=== PATIENT | female | born 1985 | race African-American/Black ===

== ENCOUNTER 2018-09-25 20:51 | Emergency (ER) | payer OTHER ==
[~2018-09-25] VITALS: Ht 167.6 cm; Wt 77.3 kg
[~2018-09-25 20:51] MED LIST: APAP325T4 PO; DIBU1OIN TOP; DICL10TA PO; IBUP-1022 PO; IBUP-1114 PO; IBUP80TA PO; KEFL500C17 PO; MAPA500T2 PO; PRENTAB20 PO; PRENTAB55 PO; PROM25SU PR; ROBA500T PO; TRAM50TA2 PO
[2018-09-25 20:52] VITALS: BP 177/88
[2018-09-25] MEDS ORDERED: predniSONE 20 MG TAB PO ONE (21:30)
[2018-09-25] MEDS ORDERED: PRED20TA PO (22:20)
== END 2018-09-25 22:30 | disposition home or self-care (01) ==
LOC: EDBD 20:51 → M ED 20:51
DX: L25.9 Unspecified contact dermatitis, unspecified cause (principal); L50.9 Urticaria, unspecified

== ENCOUNTER 2018-10-11 07:55 | Emergency (ER) | payer OTHER ==
[~2018-10-11] VITALS: Ht 167.6 cm; Wt 81.7 kg
[~2018-10-11 07:55] MED LIST changes: +PRED20TA PO
[2018-10-11 08:34] LABS: HEMATOCRIT 35.9 % (36.0-47.0); MEAN CORPUSCULAR HEMOGLOBIN 25.1 pg (27.0-33.0); MEAN CORPUSCULAR HGB CONC 30.6 g/dl (32.0-36.5); MEAN CORPUSCULAR VOLUME 81.8 fl (80.0-96.0); PLATELET COUNT, AUTOMATED 170 10^3/uL (150-450); RED BLOOD COUNT 4.39 10^6/uL (4.00-5.40); WHITE BLOOD COUNT 4.5 10^3/uL (4.0-10.0)
[2018-10-11 08:59] LABS: BLOOD UREA NITROGEN 9 MG/DL (7-18); CALCIUM LEVEL 8.8 MG/DL (8.5-10.1); CARBON DIOXIDE LEVEL 24 MEQ/L (21-32); CHLORIDE LEVEL 111 MEQ/L (98-107); CREATININE FOR GFR 1.11 MG/DL (0.55-1.30); GLOMERULAR FILTRATION RATE > 60.0 (>60); GLUCOSE, FASTING 97 MG/DL (70-100); POTASSIUM SERUM 3.6 MEQ/L (3.5-5.1); SODIUM LEVEL 142 MEQ/L (136-145)
--- NOTE | 2018-10-11 09:53 | REP ---
Pelvic ultrasound for heavy vaginal bleeding and pelvic cramping: The studies performed with transabdominal, endovaginal Doppler ultrasound assessment: The bladder is adequately distended. The uterus is anteverted and upper normal size measuring 9.4 x 5.1-5.6 cm. The endometrium is not thickened measuring 9.6 mm. The myometrium is mildly heterogeneous. Right ovary: The right ovary is normal size measuring 3.1 x 2.4 by 1.9 cm. There is a 1.3 cm dominant follicle. There is vascular flow with the Doppler resistive index of the parenchymal arteries measuring 0.52. Left ovary: The left ovary is normal size measuring 3.7 x 1.4 x 120 cm. There is no dominant mass or cyst. There is vascular flow with the Doppler resistive index in the parenchymal arteries measuring 0.43. The Impression: Mildly heterogeneous myometrium. Otherwise, negative pelvic ultrasound. Electronically Signed by Sean Pool MD 10/11/2018 09:45 A
[2018-10-11 10:28] VITALS: BP 129/86
--- NOTE | 2018-10-12 09:27 | ED PDOC ---
Post-Departure Follow-Up ft atul torres faxed formal report of pelvic us for fu Uriah Ching MD Oct 12, 2018 09:27
== END 2018-10-11 10:29 | disposition home or self-care (01) ==
LOC: M ED 07:55
DX: N92.0 Excessive and frequent menstruation with regular cycle (principal); N94.6 Dysmenorrhea, unspecified; N80.9 Endometriosis, unspecified; Z87.42 Personal history of other diseases of the female genital tract; F17.200 Nicotine dependence, unspecified, uncomplicated; Z79.3 Long term (current) use of hormonal contraceptives

== ENCOUNTER 2018-12-20 08:06 | Emergency (ER) | payer OTHER ==
[~2018-12-20] VITALS: Ht 167.6 cm; Wt 82.7 kg
[2018-12-20 08:06] VITALS: BP 126/70
[2018-12-20] MEDS ORDERED: IBUP80TA (08:11)
[2018-12-20] MEDS ORDERED: CYCL5TAB PO (08:25)
[2018-12-20] MEDS ORDERED: LIDO5DIS41 TD (08:25)
[2018-12-20] MEDS ORDERED: LIDOCAINE 5% (LIDODERM) PATCH TD ONE (08:30)
[2018-12-20] MEDS ORDERED: KETOROLAC 30 MG/ML VIAL (J1885) IM ONE (08:30)
[2018-12-20] MEDS ORDERED: **NOTE PATIENT COMMENT** MISC XX SCH (21:00)
== END 2018-12-20 09:15 | disposition home or self-care (01) ==
LOC: M ED 08:06
DX: M54.5 Low back pain (principal); F17.218 Nicotine dependence, cigarettes, with other nicotine-induced disorders
CPT/HCPCS: 96372; 99283; J1885

== ENCOUNTER 2019-04-18 08:51 | Day surgery (SDC) | payer OTHER ==
[~2019-04-18] VITALS: Ht 167.6 cm; Wt 85.7 kg
[~2019-04-18 08:51] MED LIST changes: +ACETAMINOPHEN 650 MG SUPP PR ONE; +CYCL5TAB PO; +IRON325T9 PO; +LIDO5DIS41 TD; +LIDOCAINE 1% MDV 20ML VIAL SQ PRN; +LR 1,000 ML IV ONE; +SODIUM CHLORIDE 0.9% 1000ML IV ONE; +VITA500T21 PO
[2019-04-18] MEDS ORDERED: QC A650T3 PO (09:27)
[2019-04-18 09:31] LABS: HEMATOCRIT 34.7 % (36.0-47.0); HEMOGLOBIN 10.7 g/dl (12.0-15.5); MEAN CORPUSCULAR HGB CONC 30.8 g/dl (32.0-36.5); MEAN CORPUSCULAR VOLUME 77.8 fl (80.0-96.0); PLATELET COUNT, AUTOMATED 186 10^3/uL (150-450); RED BLOOD COUNT 4.46 10^6/uL (4.00-5.40); WHITE BLOOD COUNT 5.7 10^3/uL (4.0-10.0)
[2019-04-18] MEDS ORDERED: LIDOCAINE 2% INJ 100 MG/5 ML SDV (FOR ANES.) As Ordered ONE (09:47)
[2019-04-18] MEDS ORDERED: dexameTHASONE 4 MG/ML 1ML VIAL (J1100) As Ordered ONE (09:47)
[2019-04-18] MEDS ORDERED: MIDAZOLAM INJ 2 MG/2 ML VIAL (J2250) As Ordered ONE (09:47)
[2019-04-18] MEDS ORDERED: propofoL 200 MG/20 ML VIAL As Ordered ONE (09:47)
[2019-04-18] MEDS ORDERED: ONDANSETRON 4MG/2ML VIAL (J2405) As Ordered ONE (09:47)
[2019-04-18] MEDS ORDERED: fentaNYL 100 MCG/2 ML INJECTION (J3010) As Ordered ONE (09:47)
[2019-04-18 10:00] LABS: BLOOD UREA NITROGEN 13 MG/DL (7-18); CALCIUM LEVEL 8.8 MG/DL (8.5-10.1); CARBON DIOXIDE LEVEL 26 MEQ/L (21-32); CHLORIDE LEVEL 110 MEQ/L (98-107); CREATININE FOR GFR 0.76 MG/DL (0.55-1.30); GLOMERULAR FILTRATION RATE > 60.0 (>60); GLUCOSE, FASTING 80 MG/DL (70-100); HCG, SERUM QUANTITATIVE < 1.0 MIU/ML; SODIUM LEVEL 140 MEQ/L (136-145)
[2019-04-18] MEDS ORDERED: ACETAMINOPHEN 650 MG SUPP As Ordered ONE (10:23)
[2019-04-18] MEDS ORDERED: KETOROLAC 60 MG/2 ML VIAL (J1885) As Ordered ONE (10:51)
[2019-04-18] MEDS ORDERED: ePHEDrine SULFATE 25 MG/5 ML(5MG/ML) SYRINGE As Ordered ONE (11:05)
[2019-04-18] MEDS ORDERED: fentaNYL 100 MCG/2 ML INJECTION (J3010) IV PRN (11:45)
[2019-04-18] MEDS ORDERED: ONDANSETRON 4MG/2ML VIAL (J2405) IV PRN (11:45)
[2019-04-18] MEDS ORDERED: LR 1,000 ML IV SCH (11:45)
[2019-04-18] MEDS ORDERED: oxyCODONE 5MG TAB PO PRN (11:45)
[2019-04-18] MEDS ORDERED: METOCLOPRAMIDE INJ 10MG/2ML VIAL (J2765) IV PRN (11:45)
[2019-04-18] MEDS ORDERED: KETOROLAC 30 MG/ML VIAL (J1885) IV PRN (11:45)
[2019-04-18 12:55] VITALS: BP 112/62
--- NOTE | 2019-04-18 15:14 | ECGEPIP ---
[place] Test Date: 2019-04-18 Pat Name: LORRAINE BLANCO Department: Room: - Gender: Female Manager Research: GISELLE : 1985 Requested By: José Luis Chavez Order Number: [id number] Reading MD: Luis Tse Measurements Intervals [place] Rate: 76 P: 29 [place]: 165 QRS: 45 QRSD: 93 T: 5 QT: 379 QTc: 428 Interpretive Statements SINUS RHYTHM NONSPECIFIC T-WAVE ABNORMALITY Comparison tracing not on file Electronically Signed on 04-18-2019 15:14:02 EST by Luis Tse
== END 2019-04-18 13:18 | disposition home or self-care (01) ==
LOC: M SDC 08:51
PROVIDERS: ATTEND Obstetrics & Gynecology
DX: N93.9 Abnormal uterine and vaginal bleeding, unspecified (principal); G47.30 Sleep apnea, unspecified; D64.9 Anemia, unspecified; Z79.899 Other long term (current) drug therapy; F17.290 Nicotine dependence, other tobacco product, uncomplicated
CPT/HCPCS: 36415; 58563; 80048; 84702; 85027; 88305; 93005; J1100; J1885; J2250; J2405; J3010

== ENCOUNTER → 2019-05-05 | Outpatient (CLI) | payer OTHER ==
[~2019-05-05] MED LIST changes: -ACETAMINOPHEN 650 MG SUPP PR ONE; -LIDOCAINE 1% MDV 20ML VIAL SQ PRN; -LR 1,000 ML IV ONE; +QC A650T3 PO; -SODIUM CHLORIDE 0.9% 1000ML IV ONE
[2019-05-05 19:50] LABS: HEMATOCRIT 32.9 % (36.0-47.0); MEAN CORPUSCULAR HEMOGLOBIN 24.2 pg (27.0-33.0); MEAN CORPUSCULAR HGB CONC 30.4 g/dl (32.0-36.5); MEAN CORPUSCULAR VOLUME 79.5 fl (80.0-96.0); PLATELET COUNT, AUTOMATED 221 10^3/uL (150-450); RED BLOOD COUNT 4.14 10^6/uL (4.00-5.40); WHITE BLOOD COUNT 14.1 10^3/uL (4.0-10.0)
[2019-05-05 19:55] LABS: BLOOD UREA NITROGEN 10 MG/DL (7-18); CALCIUM LEVEL 8.8 MG/DL (8.5-10.1); CARBON DIOXIDE LEVEL 28 MEQ/L (21-32); CHLORIDE LEVEL 108 MEQ/L (98-107); CREATININE FOR GFR 0.82 MG/DL (0.55-1.30); GLOMERULAR FILTRATION RATE > 60.0 (>60); GLUCOSE, FASTING 97 MG/DL (70-100); POTASSIUM SERUM 3.7 MEQ/L (3.5-5.1); SODIUM LEVEL 139 MEQ/L (136-145)
== END ==
LOC: M LRY 17:37
PROVIDERS: ATTEND Plastic Surgery Surgery of the Hand
DX: M62.08 Separation of muscle (nontraumatic), other site (principal); M54.07 Panniculitis affecting regions of neck and back, lumbosacral region; K43.9 Ventral hernia without obstruction or gangrene

== ENCOUNTER 2019-11-03 10:49 | Emergency (ER) | payer OTHER ==
[~2019-11-03] VITALS: Ht 167.6 cm; Wt 85.3 kg
[2019-11-03] MEDS ORDERED: ONDA4TAB6 PO (11:07)
[2019-11-03] MEDS ORDERED: DIPH25CA32 PO (11:07)
[2019-11-03] MEDS ORDERED: CYCL5TAB PO (11:07)
[2019-11-03] MEDS ORDERED: diphenhydrAMINE 50MG/ML VIAL (J1200) IV STA (11:49)
[2019-11-03] MEDS ORDERED: METOCLOPRAMIDE INJ 10MG/2ML VIAL (J2765 PER 1) IV ONE (12:00)
[2019-11-03] MEDS ORDERED: NS 1,000 ML IV ONE (12:00)
[2019-11-03 12:13] LABS: BASO % 0.4 % (0.0-1.0); EOS % 0.8 % (0.0-3.0); HEMATOCRIT 43.7 % (36.0-47.0); HEMOGLOBIN 13.7 g/dl (12.0-15.5); LYMPH # 1.2 10^3/uL (1.5-5.0); LYMPH % 47.6 % (24.0-44.0); MEAN CORPUSCULAR HEMOGLOBIN 26.3 pg (27.0-33.0); MEAN CORPUSCULAR HGB CONC 31.4 g/dl (32.0-36.5); MONO # 0.4 10^3/uL (0.0-0.8); MONO % 16.9 % (0.0-5.0); NEUTROPHILS % 33.9 % (36.0-66.0); PLATELET COUNT, AUTOMATED 159 10^3/uL (150-450); WHITE BLOOD COUNT 2.5 10^3/uL (4.0-10.0)
[2019-11-03 12:17] LABS: NEUTROPHILS # 0.8 10^3/uL (1.5-8.5)
[2019-11-03 12:42] LABS: HCG, SERUM QUALITATIVE NEGATIVE (NEGATIVE)
[2019-11-03 12:53] LABS: ACETAMINOPHEN LEVEL < 2.0 UG/ML (10.0-30.0); ALBUMIN 3.8 GM/DL (3.2-5.2); ALT/SGPT 21 U/L (12-78); BILIRUBIN,DIRECT < 0.1 MG/DL (0.0-0.2); BILIRUBIN,TOTAL 0.4 MG/DL (0.2-1.0); BLOOD UREA NITROGEN 10 MG/DL (7-18); CALCIUM LEVEL 9.2 MG/DL (8.5-10.1); CARBON DIOXIDE LEVEL 26 MEQ/L (21-32); CHLORIDE LEVEL 108 MEQ/L (98-107); CREATININE FOR GFR 0.82 MG/DL (0.55-1.30); ETHYL ALCOHOL (ETHANOL) < 0.003 % (0.000-0.010); GLOMERULAR FILTRATION RATE > 60.0 (>60); GLUCOSE, FASTING 77 MG/DL (70-100); SALICYLATE LEVEL 3.4 MG/DL (5.0-30.0); SODIUM LEVEL 139 MEQ/L (136-145); THYROID STIMULATING HORMONE 0.643 uIU/ML (0.358-3.740); TOTAL PROTEIN 7.9 GM/DL (6.4-8.2)
--- NOTE | 2019-11-03 13:05 | REPVR ---
PROCEDURE INFORMATION: Exam: CT Head Without Contrast Exam date and time: 11/03/2019 12:49 PM Age: 33 years old Clinical indication: Altered mental status/memory loss; Confusion or disorientation TECHNIQUE: Imaging protocol: Computed tomography of the head without contrast. Radiation optimization: All CT scans at this facility use at least one of these dose optimization techniques: automated exposure control; mA and/or kV adjustment per patient size (includes targeted exams where dose is matched to clinical indication); or iterative reconstruction. COMPARISON: No relevant prior studies available. FINDINGS: Brain: Examination of the brain demonstrates normal structure and attenuation.The cortical henry / white matter interfaces are preserved throughout the brain.No acute infarction, masses or hemorrhage is seen. Ventricles: The ventricular system is not dilated and is appropriate for the patient's age. Bones/joints: Unremarkable. No acute fracture. Paranasal sinuses: Visualized sinuses are unremarkable. No fluid levels. Mastoid air cells: Visualized mastoid air cells are well aerated. Soft tissues: Unremarkable. IMPRESSION: No acute infarction, masses or hemorrhage is seen. No acute intracranial abnormality is identified. Electronically signed by: Kenrick Guerra On 11/03/2019 13:05:47 PM
[2019-11-03] MEDS ORDERED: REGL10TA6 PO (13:54)
[2019-11-03 14:06] VITALS: BP 113/77
[2019-11-03 14:22] LABS: AMPHETAMINES LEVEL URINE NEGATIVE (NEGATIVE); BARBITURATES URINE NEGATIVE (NEGATIVE); BENZODIAZEPINES URINE NEGATIVE (NEGATIVE); CANNABINOIDS URINE NEGATIVE (NEGATIVE); COCAINE METABOLITE URINE NEGATIVE (NEGATIVE); METHADONE URINE NEGATIVE (NEGATIVE); OPIATES URINE NEGATIVE (NEGATIVE); PHENCYCLIDINE URINE NEGATIVE (NEGATIVE)
--- NOTE | 2019-11-04 11:59 | ECGEPIP ---
[facility] - ED Test Date: 2019-11-03 Pat Name: LORRAINE BLANCO Department: Room: - Gender: Female External Auditor: HOWIE : 1985 Requested By: JUANY TRISTAN Order Number: [id number] Reading MD: Mateo Akers Measurements Intervals [place] Rate: 66 P: 23 [place]: 164 QRS: 58 QRSD: 93 T: 4 QT: 388 QTc: 408 Interpretive Statements SINUS RHYTHM NONSPECIFIC T-WAVE ABNORMALITY SIMILAR TO 04/18/19 Electronically Signed on 11-04-2019 11:58:44 EDT by Mateo Akers
== END 2019-11-03 14:13 | disposition home or self-care (01) ==
LOC: M ED 10:49
DX: R51 Headache (principal); I51.9 Heart disease, unspecified; Z79.899 Other long term (current) drug therapy
CPT/HCPCS: 36415; 70450; 80048; 80076; 80307; 84443; 84703; 85025; 93005; 96361; 96374; 96375; 99284; G0480; J1200; J2765

== ENCOUNTER 2019-12-06 22:43 | Emergency (ER) | payer OTHER ==
[~2019-12-06] VITALS: Ht 167.6 cm; Wt 87.4 kg
[~2019-12-06 22:43] MED LIST changes: +DIPH25CA32 PO; +ONDA4TAB6 PO; +REGL10TA6 PO
[2019-12-07 00:55] LABS: MEAN CORPUSCULAR HEMOGLOBIN 26.4 pg (27.0-33.0); MEAN CORPUSCULAR HGB CONC 31.7 g/dl (32.0-36.5); MEAN CORPUSCULAR VOLUME 83.2 fl (80.0-96.0); PLATELET COUNT, AUTOMATED 185 10^3/uL (150-450); RED BLOOD COUNT 4.93 10^6/uL (4.00-5.40); WHITE BLOOD COUNT 6.4 10^3/uL (4.0-10.0)
[2019-12-07] MEDS ORDERED: IBUPROFEN 600MG TAB PO ONE (01:00)
[2019-12-07] MEDS ORDERED: MORPHINE 4 MG/ML 1ML VIAL/SYRINGE (J2270) IV ONE (01:00)
[2019-12-07] MEDS ORDERED: ACETAMINOPHEN 325 MG TAB PO ONE (01:00)
[2019-12-07 01:02] LABS: APPEARANCE, URINE CLEAR (CLEAR); BACTERIA, URINE AUTO NEGATIVE (NEGATIVE); BILIRUBIN, URINE AUTO NEGATIVE (NEGATIVE); BLOOD, URINE BLOOD NEGATIVE (NEGATIVE); COLOR, URINE YELLOW (YELLOW); GLUCOSE, URINE (UA) AUTO NEGATIVE (NEGATIVE); KETONE, URINE AUTO NEGATIVE (NEGATIVE); LEUKOCYTE ESTERASE, URINE AUTO NEGATIVE (NEGATIVE); MUCUS, URINE SMALL (NEGATIVE); NITRITE, URINE AUTO NEGATIVE (NEGATIVE); PROTEIN, URINE AUTO NEGATIVE (NEGATIVE); RBC, URINE AUTO 2 /HPF (0-3); SPECIFIC GRAVITY URINE AUTO 1.024 (1.002-1.035); SQUAMOUS EPITHELIAL CELL UR AU 1 /HPF (0-6); WBC, URINE AUTO 1 /HPF (0-3)
[2019-12-07 01:24] LABS: BLOOD UREA NITROGEN 13 MG/DL (7-18); CALCIUM LEVEL 9.8 MG/DL (8.5-10.1); CARBON DIOXIDE LEVEL 27 MEQ/L (21-32); CHLORIDE LEVEL 108 MEQ/L (98-107); CREATININE FOR GFR 0.95 MG/DL (0.55-1.30); GLOMERULAR FILTRATION RATE > 60.0 (>60); GLUCOSE, FASTING 95 MG/DL (70-100); POTASSIUM SERUM 3.9 MEQ/L (3.5-5.1); SODIUM LEVEL 137 MEQ/L (136-145)
[2019-12-07 01:39] LABS: HCG, SERUM QUALITATIVE NEGATIVE (NEGATIVE)
[2019-12-07] MEDS ORDERED: ISOVUE-370 76% 100ML VIAL As Ordered ONE (01:51)
--- NOTE | 2019-12-07 02:21 | REPVR ---
PROCEDURE INFORMATION: Exam: US Nonobstetric Pelvis; Complete Exam date and time: 12/07/2019 1:41 AM Age: 34 years old Clinical indication: Pelvic pain; Prior surgery; Surgery date: 6+ months; Surgery type: Uterine ablation; Additional info: Rule out ovarian torsion TECHNIQUE: Imaging protocol: Transabdominal pelvic nonobstetric ultrasound. Complete exam. Real time ultrasound with image documentation. COMPARISON: US PELVIC NON-OB COMPLETE 10/11/2018 9:18 AM FINDINGS: GESTATION: Gestation: No parts are seen in either collection. Uterus/cervix: Uterus measures 9.6 x 4.2 x 6.5 cm. Endometrium measures 9 mm. A 2.5 cm oval cystic area is noted in the lower endometrium. No other endometrial mass is seen. Additional small irregular area of fluid is noted in the fundal endometrium measuring 1.5 cm. No solid uterine or endometrial masses. Right adnexa: Ovary is normal. No mass. Normal blood flow. Left adnexa: 2.0 cm simple cyst in the left ovary. Normal blood flow. Intraperitoneal space: No intraperitoneal free fluid. Bladder: Normal. IMPRESSION: 1. Two cystic areas in the endometrium. Findings may be related to previous endometrial ablation. No parts or solid mass is seen. 2. Simple cyst in the left ovary. Electronically signed by: Gustavo Brian On 12/07/2019 02:21:24 AM
--- NOTE | 2019-12-07 02:26 | REPVR ---
PROCEDURE INFORMATION: Exam: CT Abdomen And Pelvis With Contrast Exam date and time: 12/07/2019 12:53 AM Age: 34 years old Clinical indication: Abdominal pain; Localized; Lower; Additional info: Periumbilical and pelvic pain. HX of multiple abd surgeries TECHNIQUE: Imaging protocol: Computed tomography of the abdomen and pelvis with intravenous contrast. Radiation optimization: All CT scans at this facility use at least one of these dose optimization techniques: automated exposure control; mA and/or kV adjustment per patient size (includes targeted exams where dose is matched to clinical indication); or iterative reconstruction. Contrast material: ISO; Contrast volume: 100 ml; Contrast route: INTRAVENOUS (IV); COMPARISON: CT ABD PELVIS WITH CONTRAST 08/17/2018 6:03 PM FINDINGS: Liver: Normal. No mass. Gallbladder and bile ducts: Normal. No calcified stones. No ductal dilation. Pancreas: Normal. No ductal dilation. Spleen: Normal. No splenomegaly. Adrenals: Normal. No mass. Kidneys and ureters: Normal. No hydronephrosis. Stomach and bowel: Mild intraluminal fluid and mucosal enhancement are noted in the small bowel. No wall thickening or other inflammatory changes. No bowel obstruction. The stomach and colon are unremarkable. Appendix: No evidence of appendicitis. Intraperitoneal space: Unremarkable. No free air. No significant fluid collection. Vasculature: Unremarkable. No abdominal aortic aneurysm. Lymph nodes: Unremarkable. No enlarged lymph nodes. Urinary bladder: Unremarkable as visualized. Reproductive: 2 cystic enhancing areas are noted in the endometrium of the uterus measuring 1.7 x 3.1 cm and 2.5 x 1.6 cm. Uterus does not appear enlarged. No solid uterine mass is seen. Probable small cyst measuring approximately 2.0 cm in the left ovary. Right ovary is not well visualized. No hydrosalpinx. Bones/joints: There are degenerative changes in the spine and pelvis. Soft tissues: There is diastasis of the rectus abdominus musculature, unchanged from the prior exam. No other abdominal wall hernias are seen. IMPRESSION: 1. Two peripherally enhancing cystic areas in the uterine endometrium. Differential diagnostic considerations include endometrial cysts, endometritis, or sequela previous surgery or endometrial ablation. 2. Probable small cysts in the left ovary. 3. Mild mucosal enhancement and intraluminal fluid in the small bowel is nonspecific but may indicate a viral enteritis. No obstruction. 4. Stable diastasis of the rectus abdominus musculature with nonobstructed bowel and peritoneal fat extending into the defect. Electronically signed by: Gustavo Brian On 12/07/2019 02:26:25 AM
[2019-12-07] MEDS ORDERED: ONDANSETRON 4MG/2ML VIAL IV ONE (03:45)
[2019-12-07] MEDS ORDERED: ZOFR4TAB16 PO (03:48)
[2019-12-07 04:15] VITALS: BP 105/72
== END 2019-12-07 04:31 | disposition home or self-care (01) ==
LOC: M ED 22:43
DX: N80.9 Endometriosis, unspecified (principal); N83.202 Unspecified ovarian cyst, left side; M62.08 Separation of muscle (nontraumatic), other site; F17.200 Nicotine dependence, unspecified, uncomplicated; Z79.899 Other long term (current) drug therapy
CPT/HCPCS: 74177; 76856; 80048; 81001; 84703; 85027; 93976; 96374; 96375; 99284; J2270; J2405; Q9967

== ENCOUNTER 2019-12-21 16:39 | Emergency (ER) | payer OTHER ==
[~2019-12-21] VITALS: Ht 167.6 cm; Wt 86.6 kg
[~2019-12-21 16:39] MED LIST changes: +ZOFR4TAB16 PO
[2019-12-21] MEDS ORDERED: ZONI25CA13 (16:50)
[2019-12-21 18:43] LABS: BASO % 0.1 % (0.0-1.0); EOS # 0.1 10^3/uL (0.0-0.5); EOS % 0.9 % (0.0-3.0); HEMATOCRIT 41.6 % (36.0-47.0); LYMPH # 2.6 10^3/uL (1.5-5.0); LYMPH % 33.7 % (24.0-44.0); MEAN CORPUSCULAR HEMOGLOBIN 26.3 pg (27.0-33.0); MEAN CORPUSCULAR HGB CONC 31.3 g/dl (32.0-36.5); MONO # 0.3 10^3/uL (0.0-0.8); MONO % 4.2 % (0.0-5.0); NEUTROPHILS # 4.6 10^3/uL (1.5-8.5); NEUTROPHILS % 60.7 % (36.0-66.0); PLATELET COUNT, AUTOMATED 186 10^3/uL (150-450); RED BLOOD COUNT 4.95 10^6/uL (4.00-5.40); WHITE BLOOD COUNT 7.6 10^3/uL (4.0-10.0)
--- NOTE | 2019-12-21 18:44 | REP ---
INDICATION: abd pain, constipation. COMPARISON: Comparison CT study December 07, 2019.. TECHNIQUE: Two supine views presented. FINDINGS: Supine views the abdomen demonstrate air and stool in a nondistended proximal and distal colon. No large or small bowel dilation is seen. Flank stripes are intact. Psoas margins are partially obscured by bowel gas. No mass or organomegaly is seen. No pathologic calcification noted. There is moderate stool in the cecum and ascending colon. Only minimal stool is visible in the rectum. No evidence of constipation. IMPRESSION: Normal bowel gas pattern. Minimal stool in rectum. <Electronically signed by Manuel Sweeney > 12/21/19 [id number]
[2019-12-21 19:11] LABS: BLOOD UREA NITROGEN 12 MG/DL (7-18); CALCIUM LEVEL 9.2 MG/DL (8.5-10.1); CARBON DIOXIDE LEVEL 27 MEQ/L (21-32); CHLORIDE LEVEL 109 MEQ/L (98-107); CREATININE FOR GFR 0.79 MG/DL (0.55-1.30); GLOMERULAR FILTRATION RATE > 60.0 (>60); GLUCOSE, FASTING 108 MG/DL (70-100); POTASSIUM SERUM 4.2 MEQ/L (3.5-5.1); SODIUM LEVEL 138 MEQ/L (136-145)
--- NOTE | 2019-12-21 19:24 | REPVR ---
PROCEDURE INFORMATION: Exam: US Abdomen; Limited Exam date and time: 12/21/2019 7:14 PM Age: 34 years old Clinical indication: Abdominal pain; Other: Midline tenderness; Additional info: Diastasis rectus with herniation, R/O bowel strangulation TECHNIQUE: Imaging protocol: US abdomen. Real time ultrasound with image documentation. Limited exam focused on the region of clinical interest. COMPARISON: CT ABD PELVIS WITH CONTRAST 12/07/2019 1:53 AM FINDINGS: Bowel: Peristalsing bowel was visualized along the anterior midline abdomen, corresponding to extension of bowel through the diastatic musculature seen on the CT. IMPRESSION: Peristalsing bowel visualized along the anterior midline abdomen, corresponding to extension of bowel through the diastatic musculature seen on CT of 12/07/19. If there is any clinical concern for bowel obstruction, suggest repeat CT. Electronically signed by: Sami Bob On 12/21/2019 19:23:43 PM
[2019-12-21] MEDS ORDERED: ULTR50TA8 PO (20:19)
[2019-12-21] MEDS ORDERED: MIRA3350 PO (20:19)
[2019-12-21] MEDS ORDERED: NAPR-837 PO (20:19)
[2019-12-21 20:24] VITALS: BP 118/82
[2019-12-21] MEDS ORDERED: traMADol 50 MG TAB PO ONE (20:30)
== END 2019-12-21 20:28 | disposition home or self-care (01) ==
LOC: M ED 16:39
DX: M62.08 Separation of muscle (nontraumatic), other site (principal); S39.012A Strain of muscle, fascia and tendon of lower back, initial encounter; X58.XXXA Exposure to other specified factors, initial encounter; Y92.9 Unspecified place or not applicable; Y93.9 Activity, unspecified; Y99.9 Unspecified external cause status; Z79.899 Other long term (current) drug therapy

== ENCOUNTER 2020-01-19 11:03 | Emergency (ER) | payer OTHER ==
[~2020-01-19] VITALS: Ht 167.6 cm; Wt 86.2 kg
[~2020-01-19 11:03] MED LIST changes: +MIRA3350 PO; +NAPR-837 PO; +ULTR50TA8 PO; +ZONI25CA13
[2020-01-19] MEDS ORDERED: NS 1,000 ML IV ONE (12:15)
[2020-01-19] MEDS ORDERED: ONDANSETRON 4MG/2ML VIAL IV ONE (12:15)
[2020-01-19] MEDS ORDERED: MORPHINE 4 MG/ML 1ML VIAL/SYRINGE (J2270) IV ONE (12:15)
[2020-01-19 12:37] LABS: BASO % 0.2 % (0.0-1.0); EOS # 0.1 10^3/uL (0.0-0.5); EOS % 0.9 % (0.0-3.0); HEMATOCRIT 38.5 % (36.0-47.0); LYMPH # 1.8 10^3/uL (1.5-5.0); LYMPH % 29.9 % (24.0-44.0); MEAN CORPUSCULAR HEMOGLOBIN 26.4 pg (27.0-33.0); MEAN CORPUSCULAR HGB CONC 31.2 g/dl (32.0-36.5); MEAN CORPUSCULAR VOLUME 84.6 fl (80.0-96.0); MONO # 0.3 10^3/uL (0.0-0.8); MONO % 5.4 % (0.0-5.0); NEUTROPHILS # 3.7 10^3/uL (1.5-8.5); NEUTROPHILS % 63.4 % (36.0-66.0); PLATELET COUNT, AUTOMATED 154 10^3/uL (150-450); RED BLOOD COUNT 4.55 10^6/uL (4.00-5.40); WHITE BLOOD COUNT 5.9 10^3/uL (4.0-10.0)
[2020-01-19 12:57] LABS: HCG, SERUM QUALITATIVE NEGATIVE (NEGATIVE)
[2020-01-19 12:58] LABS: BLOOD UREA NITROGEN 11 MG/DL (7-18); CALCIUM LEVEL 8.7 MG/DL (8.5-10.1); CARBON DIOXIDE LEVEL 25 MEQ/L (21-32); CHLORIDE LEVEL 110 MEQ/L (98-107); CREATININE FOR GFR 0.82 MG/DL (0.55-1.30); GLOMERULAR FILTRATION RATE > 60.0 (>60); GLUCOSE, FASTING 87 MG/DL (70-100); SODIUM LEVEL 140 MEQ/L (136-145)
[2020-01-19 12:59] LABS: ALBUMIN 3.5 GM/DL (3.2-5.2); ALT/SGPT 19 U/L (12-78); BILIRUBIN,DIRECT 0.2 MG/DL (0.0-0.2); BILIRUBIN,TOTAL 0.5 MG/DL (0.2-1.0); LIPASE 73 U/L (73-393); TOTAL PROTEIN 7.1 GM/DL (6.4-8.2)
--- NOTE | 2020-01-19 13:46 | REP ---
INDICATION: pelvic pain, h/o endometriosis and ovarian cysts. COMPARISON: Comparison pelvic sonography December 07, 2019.. TECHNIQUE: Transabdominal and transvaginal scanning were performed. FINDINGS: Uterine dimensions are normal at 9.5 x 5.0 x 5.5 cm. Endometrial echo is 0.4 cm. A hypoechoic fluid collection is seen in the lower uterine segment centrally consistent with a loculated endometrial fluid collection, localized hydrometra . This measures 3.0 x 1.6 cm. At real-time exam, this is observed to move within the endometrium. A cystic polypoid lesion could have this appearance as well. No myometrial mass lesion is observed. The right ovary has dimensions of 3.5 x 1.9 x 3.6 cm. It's Doppler flow is normal with a resistive index of 0.4. There is a 1.9 x 1.1 x 2.3 cm cyst in the right ovary. The left ovary dimensions are normal as well at 3.2 x 1.0 x 2.8 cm. It's Doppler flow was normal with resistive index of 0.28. There is a 7 mm follicle cyst in the left ovary. IMPRESSION: Oval-shaped complex 3 cm fluid collection in the endometrium of the uterus appears to be somewhat mobile at real-time exam. Cystic polypoid lesion versus loculated endometrial fluid collection, localized hydrometra.. Small cyst right ovary. Otherwise negative. <Electronically signed by Manuel Sweeney > 01/19/20 [id number]
[2020-01-19] MEDS ORDERED: FLUCONAZOLE 50MG TABLET PO ONE (14:00)
[2020-01-19] MEDS ORDERED: KETOROLAC 30 MG/ML 1ML VIAL IV ONE (14:00)
[2020-01-19] MEDS ORDERED: KETO10TAB PO (15:25)
[2020-01-19 16:00] VITALS: BP 106/67
[2020-01-19 16:03] LABS: CHLAMYDIA DNA AMPLIFICATION NEGATIVE (NEGATIVE); GC DNA AMPLIFICATION NEGATIVE (NEGATIVE)
--- NOTE | 2020-01-20 07:58 | ED PDOC ---
Post-Departure Follow-Up ft atul fp faxed formal report of pelvic us for fu Uriah Ching MD Jan 20, 2020 07:58
== END 2020-01-19 16:27 | disposition home or self-care (01) ==
LOC: M ED 11:03
DX: R10.2 Pelvic and perineal pain (principal); N85.8 Other specified noninflammatory disorders of uterus; N83.01 Follicular cyst of right ovary; B37.3 Candidiasis of vulva and vagina; R51.9 Headache, unspecified; F17.200 Nicotine dependence, unspecified, uncomplicated; Z79.899 Other long term (current) drug therapy
CPT/HCPCS: 36415; 76830; 76856; 80048; 80076; 81001; 83690; 84703; 85025; 87210; 87661; 93976; 96361; 96374; 96375; 99284; J1885; J2270; J2405

== ENCOUNTER 2020-02-15 17:20 | Emergency (ER) | payer OTHER ==
[~2020-02-15] VITALS: Ht 167.6 cm; Wt 85.9 kg
[~2020-02-15 17:20] MED LIST changes: +KETO10TAB PO
[2020-02-15] MEDS ORDERED: JOLETAB (17:32)
[2020-02-15] MEDS ORDERED: NORCO, ANEXSIA 5/325MG TABLET (HYDROcodone/ACETAMINOPHEN) PO ONE (18:30)
[2020-02-15 18:49] LABS: BASO % 0.3 % (0.0-1.0); EOS # 0.1 10^3/uL (0.0-0.5); EOS % 2.1 % (0.0-3.0); HEMATOCRIT 44.6 % (36.0-47.0); HEMOGLOBIN 13.4 g/dl (12.0-15.5); LYMPH # 2.4 10^3/uL (1.5-5.0); MEAN CORPUSCULAR HEMOGLOBIN 26.3 pg (27.0-33.0); MEAN CORPUSCULAR VOLUME 87.5 fl (80.0-96.0); MONO # 0.3 10^3/uL (0.0-0.8); MONO % 5.3 % (0.0-5.0); NEUTROPHILS # 3.4 10^3/uL (1.5-8.5); NEUTROPHILS % 54.1 % (36.0-66.0); PLATELET COUNT, AUTOMATED 153 10^3/uL (150-450); WHITE BLOOD COUNT 6.2 10^3/uL (4.0-10.0)
[2020-02-15 20:15] LABS: ALBUMIN 3.9 GM/DL (3.2-5.2); ALT/SGPT 23 U/L (12-78); BILIRUBIN,TOTAL 0.3 MG/DL (0.2-1.0); BLOOD UREA NITROGEN 14 MG/DL (7-18); CALCIUM LEVEL 9.1 MG/DL (8.5-10.1); CARBON DIOXIDE LEVEL 29 MEQ/L (21-32); CHLORIDE LEVEL 108 MEQ/L (98-107); CREATININE FOR GFR 0.88 MG/DL (0.55-1.30); GLOMERULAR FILTRATION RATE > 60.0 (>60); GLUCOSE, FASTING 90 MG/DL (70-100); POTASSIUM SERUM 4.6 MEQ/L (3.5-5.1); SODIUM LEVEL 139 MEQ/L (136-145); TOTAL PROTEIN 7.8 GM/DL (6.4-8.2)
[2020-02-15] MEDS ORDERED: MORPHINE 4 MG/ML 1ML VIAL/SYRINGE (J2270) IV ONE (20:30)
--- NOTE | 2020-02-15 21:03 | REPVR ---
PROCEDURE INFORMATION: Exam: US Nonobstetric Pelvis; Complete Exam date and time: 02/15/2020 7:36 PM Age: 34 years old Clinical indication: Pelvic pain; Prior surgery; Surgery date: 6+ months; Surgery type: Endometrial ablation in April 2019, no cycle and pain since; Patient HX: HX of heavy periods and endometriosis, states no cycles since procedure, last was in March 2019; Additional info: Increased left pelvic pain TECHNIQUE: Imaging protocol: Transabdominal pelvic nonobstetric ultrasound. Complete exam. Real time ultrasound with image documentation. COMPARISON: US PELVIC NON-OB COMPLETE 01/19/2020 12:55 PM FINDINGS: Uterus/cervix: The uterus measures 9.9 x 4.6 x 5.8 cm. Endometrium measures 4 mm thick. Small amount of endometrial fluid is present. There is a complex heterogeneous fluid collection in the lower uterine segment measuring 4.1 x 2.8 x 3.4 cm, increased in size since the previous exam. The collection is now increasingly heterogeneously echogenic, possibly indicating internal hemorrhage. No internal Doppler blood flow is seen. Right adnexa: There is a complex septated cyst in the right ovary measuring 4.8 x 3.2 x 3.1 cm. Some low level blood flow is present in the periphery of the cyst. Normal blood flow in the right ovary. Left adnexa: Left ovary is not visualized. Intraperitoneal space: Trace pelvic free fluid. Urinary bladder: Unremarkable. IMPRESSION: 1. Interval increase in size of heterogeneous, possibly hemorrhagic cystic mass in the lower uterine segment. 2. New complex septated cyst in the right ovary. Electronically signed by: Gustavo Brian On 02/15/2020 21:03:41 PM
[2020-02-15] MEDS ORDERED: PERC5TAB12 PO (21:36)
[2020-02-15] MEDS ORDERED: OXYCODONE/APAP 5MG/325MG(BULK FOR ED) 1 TABLET PO ONE (21:45)
[2020-02-15 22:02] VITALS: BP 113/64
== END 2020-02-15 22:04 | disposition home or self-care (01) ==
LOC: M ED 17:20
DX: N83.201 Unspecified ovarian cyst, right side (principal); N93.9 Abnormal uterine and vaginal bleeding, unspecified; Z79.1 Long term (current) use of non-steroidal anti-inflammatories (NSAID); Z79.899 Other long term (current) drug therapy
CPT/HCPCS: 76830; 76856; 80053; 81001; 84702; 85025; 93976; 96374; 99284; J2270

== ENCOUNTER 2020-03-06 20:26 | Emergency (ER) | payer OTHER ==
[~2020-03-06] VITALS: Ht 167.6 cm; Wt 88.6 kg
[~2020-03-06 20:26] MED LIST changes: +JOLETAB; +PERC5TAB12 PO
--- OUTSIDE RECORDS SUMMARY | 2020-03-06 20:33 | CCD ---
Author Author [facility] Organization [facility] Address Unknown Phone Unavailable Care Team Providers Care Upfitter Name Role Phone MAX, E TPAAN DO Unavailable Unavailable MAX, E TAPAN DO Unavailable Unavailable MAX, E TAPAN DO Unavailable Unavailable MAX, E TAPAN DO Unavailable Unavailable MAX, E TAPAN DO Unavailable Unavailable MAX, E TAPAN DO Unavailable Unavailable MAX, E TAPAN DO Unavailable Unavailable MAX, E TAPAN DO Unavailable Unavailable MAX, E TAPAN DO Unavailable Unavailable MAX, E TAPAN DO Unavailable Unavailable MAX, E TAPAN DO Unavailable Unavailable MAX, E TAPAN DO Unavailable Unavailable MAX, E TAPAN DO Unavailable Unavailable MAX, E TAPAN DO Unavailable Unavailable MAX, E TAPAN DO Unavailable Unavailable MAX, E TAPAN DO Unavailable Unavailable MAX, E TAPAN DO Unavailable Unavailable MAX, E TAPAN DO Unavailable Unavailable MAX, E TAPAN DO Unavailable Unavailable MAX, E TAPAN DO Unavailable Unavailable MAX, E TAPAN DO Unavailable Unavailable Kenniff, P Allan RPA-C Unavailable Unavailable Kenniff, P Lalan RPA-C Unavailable Unavailable Kenniff, P Allan RPA-C Unavailable Unavailable Kenniff, P Allan RPA-C Unavailable Unavailable Kenniff, P Allan RPA-C Unavailable Unavailable Kenniff, P Allan RPA-C Unavailable Unavailable Kenniff, P Allan RPA-C Unavailable Unavailable Kenniff, P Allan RPA-C Unavailable Unavailable Kenniff, P Allan RPA-C Unavailable Unavailable Kenniff, P Allan RPA-C Unavailable Unavailable Kenniff, P Allan RPA-C Unavailable Unavailable Kenniff, P Allan RPA-C Unavailable Unavailable Kenniff, P Allan RPA-C Unavailable Unavailable Kenniff, P Allan RPA-C Unavailable Unavailable Kenniff, P Allan RPA-C Unavailable Unavailable Kenniff, P Allan RPA-C Unavailable Unavailable Kenniff, P Allan RPA-C Unavailable Unavailable Kenniff, P Allan RPA-C Unavailable Unavailable Kenniff, P Allan RPA-C Unavailable Unavailable Kenniff, P Allan RPA-C Unavailable Unavailable Kenniff, P Allan RPA-C Unavailable Unavailable Kenniff, P Allan RPA-C Unavailable Unavailable DOROTEO, NIC MD Unavailable Unavailable DOROTEO, NIC MD Unavailable Unavailable DOROTEO, NIC MD Unavailable Unavailable DOROTEO, NIC MD Unavailable Unavailable DOROTEO, NIC MD Unavailable Unavailable DOROTEO, NIC MD Unavailable Unavailable DOROTEO, NIC MD Unavailable Unavailable DOROTEO, NIC MD Unavailable Unavailable DOROTEO, NIC MD Unavailable Unavailable DOROTEO, NIC MD Unavailable Unavailable DOROTEO, NIC MD Unavailable Unavailable DOROTEO, NIC MD Unavailable Unavailable DOROTEO, NIC MD Unavailable Unavailable DOROTEO, NIC MD Unavailable Unavailable DOROTEO, NIC MD Unavailable Unavailable DOROTEO, NIC MD Unavailable Unavailable DOROTEO, NIC MD Unavailable Unavailable DOROTEO, NIC MD Unavailable Unavailable DOROTEO, NIC MD Unavailable Unavailable DOROTEO, NIC MD Unavailable Unavailable DOROTEO, NIC MD Unavailable Unavailable DOROTEO, NIC MD Unavailable Unavailable DOROTEO, NIC MD Unavailable Unavailable DOROTEO, NIC MD Unavailable Unavailable DOROTEO, NIC MD Unavailable Unavailable DOROTEO, NIC MD Unavailable Unavailable DOROTEO, NIC MD Unavailable Unavailable DOROTEO, NIC MD Unavailable Unavailable DOROTEO, NIC MD Unavailable Unavailable DOROTEO, NIC MD Unavailable Unavailable DOROTEO, NIC MD Unavailable Unavailable DOROTEO, NIC MD Unavailable Unavailable DOROTEO, NIC MD Unavailable Unavailable DOROTEO, NIC MD Unavailable Unavailable DOROTEO, NIC MD Unavailable Unavailable DOROTEO, NIC MD Unavailable Unavailable DOROTEO, NIC MD Unavailable Unavailable DOROTEO, NIC MD Unavailable Unavailable DOROTEO, NIC MD Unavailable Unavailable DOROTEO, NIC MD Unavailable Unavailable MOORELENKA Jones Unavailable Unavailable Hubert HOWARD MD Unavailable Unavailable Hubert HOWARD MD Unavailable Unavailable Hubert HOWARD MD Unavailable Unavailable Hubert HOWARD MD Unavailable Unavailable Hubert HOWARD MD Unavailable Unavailable Hubert HOWARD MD Unavailable Unavailable VENERUEugenio, Hubert KHAN MD Unavailable Unavailable VENERUEugenio, Hubert KHAN MD Unavailable Unavailable VENERUEugenio, Hubert KHAN MD Unavailable Unavailable RIKKI EAGLEIN Unavailable Unavailable FORNI, R MIRACLE DPM Unavailable Unavailable FORNI, R MIRACLE DPM Unavailable Unavailable FORNI, R MIRACLE DPM Unavailable Unavailable FORNI, R MIRACLE DPM Unavailable Unavailable FORNI, R MIRACLE DPM Unavailable Unavailable FORNI, R MIRACLE DPM Unavailable Unavailable FORNI, R MIRACLE DPM Unavailable Unavailable Re-disclosure Warning The records that you are about to access may contain information from federally-assisted alcohol or drug abuse programs. If such information is present, then the following federally mandated warning applies: This information has been disclosed to you from records protected by federal confidentiality rules (42 CFR part 2). The federal rules prohibit you from making any further disclosure of this information unless further disclosure is expressly permitted by the written consent of the person to whom it pertains or as otherwise permitted by 42 CFR part 2. A general authorization for the release of medical or other information is NOT sufficient for this purpose. The Federal rules restrict any use of the information to criminally investigate or prosecute any alcohol or drug abuse patient.The records that you are about to access may contain highly sensitive health information, the redisclosure of which is protected by Article 27-F of the [facility] Public Health law. If you continue you may have access to information: Regarding HIV / AIDS; Provided by facilities licensed or operated by the [facility] Office of Mental Health; or Provided by the [facility] Office for People With Developmental Disabilities. If such information is present, then the following [facility] mandated warning applies: This information has been disclosed to you from confidential records which are protected by state law. State law prohibits you from making any further disclosure of this information without the specific written consent of the person to whom it pertains, or as otherwise permitted by law. Any unauthorized further disclosure in violation of state law may result in a fine or longterm sentence or both. A general authorization for the release of medical or other information is NOT sufficient authorization for further disc losure. Encounters Encounter Providers Location Date Indications Data Source(s ) Outpatient Attender: NIC SADLER MD Main office [facility] 11/20[facility]2019 02:30:[facility] [place] Outpatient Attender: ANDRY EAGLE 07:58:00 AM EDT - 11/17/2019 08:58:00 AM EDT [facility] Patient discharged. Outpatient Attender: MIRACLE SERAFINGM LOZOYA 2019 08:15:54 AM EDT - 11/14/2019 05:30:00 AM EDT [facility] Patient discharged. Outpatient Attender: ANDRY EAGLE 03:53:39 PM EDT - 11/07/2019 02:24:00 PM EDT [facility] Patient discharged. Outpatient Attender: MIRACLE SERAFINGM LOZOYA 2019 01:15:00 PM EDT - 10/12/2019 01:15:00 PM EDT [facility] Outpatient Attender: TAPAN Nieves/Jose/Maddie forte 09/25/2019 03:00:00 PM EDT [facility] ([facility], ) Outpatient Attender: Allan Kim RPA-C 0 09/20/2019 12:07:52 PM EDT - 10/26/2019 10:39:00 AM EDT [facility] Patient discharged. Outpatient Attender: Allan Kim RPA-C 0 08/04/2019 11:41:43 AM EDT - 08/05/2019 06:00:00 AM EDT [facility] Patient discharged. Emergency Attender: BILL HOWARD MD 03:39:00 PM [facility] - 04/15/2019 05:17:00 PM [facility] Patient discharged. Outpatient Attender: LENKA MOORE 09:12:00 AM [facility] - 03/03/2019 10:12:00 AM [facility] Medications Medication Brand Name Start Date Product Form Dose Route Admi nistrative Instructions Pharmacy Instructions Status Indications Reaction Description Data Source(s) zonisamide 25 MG Oral Capsule Zonisamide 11/20/2019 12:00:00 AM EDT ORAL active [facility] ([facility], ) zonisamide 50 MG Oral Capsule Zonisamide 11/20/2019 12:00:00 AM EDT ORAL active [facility] ([facility], ) Insurance Providers Payer name Policy type / Coverage type Policy ID Covered republican ID Covered republican's relationship to mcmullen Policy Mcmullen Plan Information [facility] ACTIVE DUTY [id number] SP [id number] [facility] HUMANA - O/P [id number] 18 [id number] [facility] [place] [id number] 18 [id number] [facility] ACTIVE DUTY [id number] SP [id number] SELF PAY ONLY SP U [id number] Self [id number] Self [id number] Problems, Conditions, and Diagnoses Code Display Name Description Problem Type Effective Dates Data Source(s) R519 Headache, unspecified Headache, unspecified Diagnosis 11/17/2019 07:58:00 AM EDT [facility] G4733 Obstructive sleep apnea (adult) (pediatr ic) Obstructive sleep apnea (adult) (pediatric) Diagnosis 11/13/2019 08:00:00 PM EDT [facility] R99 Ill-defined and unknown cause of mortali ty Ill-defined and unknown cause of mortality Diagnosis 11/07/2019 02:24:00 PM EDT [facility] [id number] Bunion of left foot Bunion of left foot Diagnosis 0 10/12/2019 01:15:00 PM EDT [facility] G4489 Other headache syndrome Other headache syndrome Diagno sis 08/04/2019 08:30:00 PM EDT [facility] G4761 Periodic limb movement disorder Periodic limb movement disorder Diagnosis 08/04/2019 08:30:00 PM EDT [facility] R400 Somnolence Somnolence Diagnosis 08/04/2019 08:30:00 PM ED T [facility] R0683 Snoring Snoring Diagnosis 08/04/2019 08:30:00 PM ED [facility] W83075 Pain in left foot Pain in left foot Diagnosis 04/15/2019 03:39:00 PM [facility] 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, 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, left hip Diagnosis 03/03/2019 09:12:00 AM [facility] Surgeries/Procedures Procedure Description Date Indications Data Source(s) Magnetic Resonance Angiogtaphy Head W/O Contrast Material(S) 12/18/2019 12:00:00 AM EST [facility] ([facility], ) Magnetic Resonance Angiogtaphy Head W/O Contrast Material(S) 12/18/2019 12:00:00 AM EST [facility] ([facility], ) Magnetic Resonance Angiography Neck W/O Contrast Materials 12/18/2019 12:00:00 AM EST [facility] ([facility], ) Magnetic Resonance Angiography Neck W/O Contrast Materials 12/18/2019 12:00:00 AM EST [facility] ([facility], ) MRI SPINAL CANAL CERVICAL W/O CONTRAST MATRL 0 12:00:00 AM EST [facility] ([facility], ) MRI SPINAL CANAL CERVICAL W/O CONTRAST MATRL 0 12:00:00 AM EST [facility] ([facility], ) NON-INVASIVE PHYSIOLOGIC STUDY EXTREMITY 3 LEVLS 11/28 12:00:00 AM EDT [facility] ([facility], ) NON-INVASIVE PHYSIOLOGIC STUDY EXTREMITY 3 LEVLS 11/28 12:00:00 AM EDT [facility] ([facility], ) NON-INVASIVE PHYSIOLOGIC STUDY EXTREMITY 3 LEVLS 11/28 12:00:00 AM EDT [facility] ([facility], ) NON-INVASIVE PHYSIOLOGIC STUDY EXTREMITY 3 LEVLS 11/28 12:00:00 AM EDT [facility] ([facility], ) TSTG ANS FUNCJ CARDIOVAGAL INNERVAJ PARASYMP 0 12:00:00 AM EDT [facility] ([facility], ) TSTG ANS FUNCJ CARDIOVAGAL INNERVAJ PARASYMP 0 12:00:00 AM EDT [facility] ([facility], ) TESTING AUTONOMIC NERVOUS SYSTEM FUNCTION 11/29/2019 1 2:00:00 AM EDT [facility] ([facility], ) TESTING AUTONOMIC NERVOUS SYSTEM FUNCTION 11/29/2019 1 2:00:00 AM EDT [facility] ([facility], ) Results ID Date Data Source [id number] 11/17/2019 12:39:00 [place] [address] PHONE: [phone] FAX: [phone] Name .................. : FRANCIS Frias Acct Number.................. : [id number] ROOM. ................. : Number ................... : [id number] Stay type ............. : O/P Discharge Date......... ... : 11/17/19 Admit Date .... ..... : 11/17/19 Admit Phys .................... : SHAGUFTA BACA Date of ....... : 1985 Family Phys ................... : UNKNOWN CO Phone .................. : [phone] Age ................................ : 33 Film# .................. .:[id number] Sex ................................. : F Unsigned transcriptions are preliminary reports and do not represent a medical or legal document MRI BRAIN W/O CONTRAST [id number] COMPLETE:11/17/19 08:01 [id number] (REASON FOR PROCEDURE HEADACHES MRI OF THE BRAIN WITHOUT CONTRAST: FINDINGS: Acute ischemic event is not seen on diffusion-weighted imaging. Intracranial hemorrhage, space occupying mass, mass effect or midline shift is not identified. The subarachnoid cisterns are unremarkable. The skull, sinuses, orbits and mastoid air cells are unremarkable. IMPRESSION: Unremarkable MRI brain. Electronically Reviewed and Signed By Blanca Palacios MD , 11/17/19 12:39, KGG Transcribe Initials: DZ , Transcribe Date: 11/17/19 09:21, Dictation Date: Copy for: SHAGUFTA WILDE Copy for: [facility] Page 1 of 1 Name Value Range Interpretation Code Description Data Sindi rce(s) Supporting Document(s) ID Date Data Source [id number] 05/05/2019 05:44:00 PM EDT [facility] ([facility]) Name Value Range Interpretation Code Description Data Sindi rce(s) Supporting Document(s) Glucose, Fasting 97 mg/dL 70-100 Normal (applies to non-numeric results) [facility] ([facility]) Glomerular Filtration Rate Laboratory test result Normal (applies to non- numeric results) [facility]) <content>Units are mL/min/1.73 m2</content>
<content></content>
<content>Chronic Kidney Disease Staging per NKF:</content>
<content></content>
<content>Stage I & II GFR >=60 Normal to Mildly Decreased</content>
<content>Stage III GFR 30-59 Moderately Decreased</content>
<content>Stage IV GFR 15-29 Severely Decreased</content>
<content>Stage V GFR <15 Very Little GFR Left</content>
<content>ESRD GFR <15 on HORTICULTURE INSTRUCTOR</content>
<content></content> Blood Urea Nitrogen 10 mg/dL 7-18 Normal (applies to non-nume karly results) [facility] ([facility]) Creatinine For GFR 0.82 mg/dL 0.55-1.30 Normal (applies to non -numeric results) [facility] ([facility]) Chloride Level 108 meq/L 98-107 Above high normal [facility] ([facility]) Sodium Level 139 meq/L 136-145 Normal (applies to non-numeric res ults) [facility]) Potassium Serum 3.7 meq/L 3.5-5.1 Normal (applies to non-numeric results) [facility]) Carbon Dioxide Level 28 meq/L 21-32 Normal (applies to non-num yared results) [facility] ([facility]) Anion Gap 3 meq/L 8-16 Below low normal [facility] ( [facility]) Calcium Level 8.8 mg/dL 8.5-10.1 Normal (applies to non-numeric re sults) [facility] ([facility]) ID Date Data Source [id number] 05/05/2019 05:44:00 PM EDT [facility] ([facility]) Name Value Range Interpretation Code Description Data Sindi rce(s) Supporting Document(s) White Blood Count 14.1 10 4.0-10.0 Above high normal [facility] ([facility]) Red Blood Count 4.14 10 4.00-5.40 Normal (applies to non-numeric results) [facility] ([facility]) Hemoglobin 10.0 g/dL 12.0-15.5 Below low normal [facility] ( [facility]) Hematocrit 32.9 % 36.0-47.0 Below low normal [facility] ( [facility]) Mean Corpuscular Volume 79.5 fl 80.0-96.0 Below low normal [facility] ([facility]) Mean Corpuscular Hemoglobin 24.2 pg 27.0-33.0 Below low normal [facility] ([facility]) Mean Corpuscular HGB Conc 30.4 g/dL 32.0-36.5 Below low normal [facility] ([facility]) Platelet Count, Automated 221 10 150-450 Normal (applies to non-numeric results) [facility] ([facility]) Red Cell Distribution Width 16.5 % 11.5-14.5 Above high normal [facility] ([facility]) Nucleated Red Blood Cell % 0.0 % 0-0 Normal (applies to n on-numeric results) [facility] ([facility]) ID Date Data Source [id number] 04/17/2019 09:09:00 [place] [address] PHONE: [phone] FAX: [phone] Name .................. : FRANCIS Frias Acct Number.................. : [id number] ROOM. ................. : TR-04 Number ................... : [id number] Stay type ............. : E/R Discharge Date......... ... : 04/15/19 Admit Date ... ...... : 04/15/19 Admit Phys .................... : LEE SOARES Date of ....... : 1985 Family Phys ................... : UNKNOWN CO Phone .................. : [phone] Age ................................ : 33 Film# .................. .:[id number] Sex ................................. : F Unsigned transcriptions are preliminary reports and do not represent a medical or legal document FOOT COMPLETE-3 OR MORE [facility] [id number] COMPLETE:04/15/19 17:37 [facility] [address] Reason(s): Pain LEFT FOOT SERIES: FINDINGS: Some arthritic changes in the intertarsal articulations. Os naviculare present. No acute disease identified. IMPRESSION: No acute disease noted. There is an os naviculare noted which can predispose to posterior tibial tendon pathology. Electronically Reviewed and Signed By JOSE R CUEVAS MD , 04/17/19 09:09, Sadia Transcribe Initials: DZ , Transcribe Date: 04/15/19 18:21, Dictation Date: Copy for: MORENA MARINELLI via fax Copy for: EMERGENCY DEPT via modem Copy for: 710 MED REC DISCHARGED Page 1 of 1 Name Value Range Interpretation Code Description Data Sindi rce(s) Supporting Document(s) ID Date Data Source [id number] 04/15/2019 03:39:00 PM EST [facility] 1 OrderSheet [facility] Emergency Department [address] [place] [address] Phone #: [phone] 04/15/2019 15:29 Patient: LORRAINE BLANCO Sex: F : 1985 Age: 33yWEIGHT:81.6 kg (S) HEIGHT:66 inches (S) BMI:29.0ALLERGIE S: No Known Drug AllergyCHIEF COMPLAINT: pain, swelling, pain, swelling, altered sensation, Lt, feet, in:LAB ORDERSOrder Description Priority Entered Acknowledged InitialedDIAGNOSTIC STUDY ORDERSOrder Description Priority Entered Acknowledged InitialedFoot Complete Left STAT 15:49 04/15/2019 Ack'd: 15:52 15:55 [place](Oxygen?(No)) Gini Daly ED, Jesse ER PA; R.N. Tech1 Reason for Study: PainMEDICATION/IV/DRIP/FLUID ORDERSOrder Description Priority Entered Acknowledged InitialedTylenol PO 1000 15:49 04/15/2019 15:52 mg Redd Duque R.N. PA;GENERAL ORDERSOrder Description Priority Entered Acknowledged Initialed[Electronically signed by Gini Duque R.N. (17:26 04/15/2019)][Electronically signed by Redd Hernandez (19:48 04/15/2019)][Electronically locked by Gini Duque R.N. (17:26 04/15/2019)] Name Value Range Interpretation Code Description Data Sindi rce(s) Supporting Document(s) ID Date Data Source [id number] 04/15/2019 03:39:00 PM [facility] 1 Medication Reconciliation Report [facility] Emergency Department [address] [place] [address] Phone #: [phone]- [phone] 04/15/2019 15:29 Patient: LORRAINE BLANCO Sex: F : 1985 Age: 33yWeight: 81.6 kgHeight/Length: 66 in.BMI: 29.0ALLERGIES: No Known Drug AllergyThe patient's Home Medications are listed below:THE FOLLOWING MEDICATIONS NEED TO BE RECONCILED: Ibuprofen Oral (800 mg) 1 tablet, prn Iron Oral (325 (65 Fe) mg) 1 tablet, dailyThe source(s) of the original Home Medication information:Not obtained.The following Medications were given to the patient in the Emergency Department:Tylenol [PO] PO 1000 mg, administered: 04/15/2019 3:52:00 PMThe following Medications were prescribed to the patient:None. Name Value Range Interpretation Code Description Data Sindi rce(s) Supporting Document(s) ID Date Data Source [id number] 04/15/2019 03:39:00 PM [facility] 1 Medication Administration Record [facility] Emergency Department [address] [place] [address] Phone #: [phone]- [phone] 04/15/2019 15:29 Patient: LORRAINE BLANCO Sex: F : 1985 Age: 33yWeight: 81.6 kgHeight/Length: 66 inBMI: 29ALLERGIES: No Known Drug Allergy Date/Time Medication Administered Medication OrderedGiven TYLENOL [PO] (APAP) Tylenol PO 1000 mg15:52 04/15/2019 Dose: 1000 mg Tablets Gnii Henderson R.N. Name Value Range Interpretation Code Description Data Sindi rce(s) Supporting Document(s) ID Date Data Source [id number] 04/15/2019 03:39:00 PM [facility] 1 General Instructions [facility] Emergency Department [address] [place] [address] Phone #: [phone]- [phone] 04/15/2019 15:29 Patient: LORRAINE BLANCO Sex: F : 1985 Age: 33y(Bunion Left 1MTPJ).INSTRUCTIONSYou may walk and bear weight as tolerated (soft shoe profile until seen by your PA).(Try Bunion pads).Follow-up:Follow up with your doctor Wednesday. Reason for referral: evaluation, treatment and refer to Podiatry.Summary of care provided to deirdre healy.Understanding of the discharge instructions verbalized by patient.You may walk and bear weight as tolerated (soft shoe profile until seen by your PA).(Electronically signed by DEIRDRE Monge 04/15/2019 19:48) Name Value Range Interpretation Code Description Data Sindi rce(s) Supporting Document(s) ID Date Data Source [id number] 04/15/2019 03:39:00 PM [facility] 1 Clinical Report - Nurses [facility] Emergency Department [address] [place] [address] Phone #: [phone] 04/15/2019 15:29 Patient: LORRAINE BLANCO Sex: F : 1985 Age: 33yTRIAGEArrived by private vehicle. Historian: patient.Acuity: LEVEL 4.Chief Complaint: LEFT LOWER EXTREMITY PAIN.No injury occurred. This occurred (3 weeks ago). ( Pt states she has had left foot pain for quite sometime, years, but now she voices over the past 2-3 weeks the foot pain has increased much, she's notcertain if it's her boot she wears or a bunion).Treatment PROCUREMENT REPRESENTATIVE:None.SEPSIS SCREEN: NEGATIVE heart rate greater than 90.JOSE COMA SCORE: 15- eyes open- spontaneous (4); best verbal response- oriented (5); bestmotor response- obeys commands (6). --15:36 04/15/19 Harley Lynne RN15:30 04/15/19. BP: 135/94. MAP: 107. HR: 102. RR: 16. O2 saturation: 100% on room air. Temp: 97.9 F(oral). Pain level now: 07/25. --15:36 04/15/19 Harley Lynne RN.Weight: 81.6 kg stated. Height/Length: 66 inches Per Patient. BMI: 29. --15:29 04/15/19 Harley Lynne RN.MedicationsIbuprofen Oral (Tablet 800 mg) 1 tablet, as needed. --15:32 04/15/19 Harley Lynne RN Iron Oral (Tablet 325 (65 Fe) mg) 1 tablet, daily. --15:32 04/15/19 Harley Lynne RN.AllergiesNo Known Drug Allergy. --15:32 04/15/19 Harely Lynne RN.PROBLEMS:Anemia. --15:33 04/15/19 Harley Lynne RN.ADDITIONAL SURGERIES:Dilatation Curettage.Hernia Repair.Hip Surgery.Tubal Ligation. --15:33 04/15/19 Harley Lynne RN.HistoryPAST MEDICAL HX: Tetanus status: up-to-date. Immunizations: up-to-date. Has had a tubal ligation. 2 Clinical Report - Nurses [facility] Emergency Department [address] [place] [address] Phone #: [phone]- [phone] 04/15/2019 15:29 Patient: LORRAINE BLANCO Sex: F : 1985 Age: 33y SOCIAL HX: Smoker- current status unknown (cigar). Occasional alcohol use; consumes wine by the glass. No drug use. She was offered HIV testing but declined and hepatitis C testing but declined. She has not traveled outside the [place] Infectious disease exposure: No infectious disease exposure. SELF HARM ASSESSMENT: Self harm assessment was performed. The patient answered "no" to the question(s) "Have you recently felt down, depressed, or hopeless?", "Do you have thoughts of harming or killing yourself?", "Do you have a plan for harming or killing yourself?", "Have you recently had thoughts about harming or killing others?", "Do you have any dangerous items in your possession?", "Have you noticed less interest or pleasure in doing things?", "Are you here because you tried to hurt yourself?" and "Have you ever tried to hurt yourself before today?". ABUSE ASSESSMENT: No report of abuse. NUTRITIONAL RISK ASSESSMENT: The nutritional risk assessment revealed no deficiencies. FUNCTIONAL ASSESSMENT: Functional assessment: no impairments noted. LEARNING NEEDS ASSESSMENT: The learning needs assessment revealed no barriers. FALL RISK ASSESSMENT: Fall risk assessment completed. No risk factors identified. SKIN INTEGRITY ASSESSMENT: Skin integrity risk assessment completed. No skin integrity risk identified. --15:36 04/15/19 Harley Lynne RN. Interventions To treatment room. --15:36 04/15/19 Harley Lynne RN.PHYSICAL ASSESSMENTAmbulatory to room.GENERAL / NEURO / PSYCH: Oriented X 4. Alert. Appears in no acute distress.EXTREMITIES: Extremity pulses are within normal limits. Neuro-vascular status intact to the extremity.No lower extremity edema. Right foot, plantar aspect: tenderness (medial great toe joint, hardened area,tender to touch).SKIN: Skin is warm and dry. --15:48 04/15/19 Gini Duque R.N.NURSING PROGRESS NOTESReassurance given. Three patient identifiers checked. Call light placed in reach. Side rails up x 2. Bedplaced in lowest position. Brakes of bed on. Patient ready for evaluation- PA notified. --15:48 04/15/19Gini Duque R.N. 15:52 04/15/2019 Tylenol (APAP) PO Tablets 1000 mg given. Allergies verified and confirmed 5 rights. Information reviewed with patient including reason for taking this medication, signs of allergic reaction and precautions. Verbalizes understa nding. --15:52 04/15/19 Gini Duque R.N. 3 Clinical Report - Nurses [facility] Emergency Department [address] [place] [address] Phone #: ext- [phone] 04/15/2019 15:29 Patient: LORRAINE BLANCO Sex: F : 1985 Age: 33y The patient reports no complaints and she is calm and resting quietly. Patient waiting for radiology study to be done. --16:37 04/15/19 Gini Duque R.N. Patient transported to radiology by wheelchair with tech. --16:46 04/15/19 Gini Duque R.N. Patient returned from radiology by wheelchair with tech. --16:56 04/15/19 Gini Duque R.N.DISPOSITION / DISCHARGE Departure time: 17:17 04/15/2019. Condition at departure: stable. No learning barriers present. Discharge instructions provided and reviewed with the patient. Reviewed warnings (please see paper copy). Treatments reviewed (Try bunion pads). Activity restrictions reviewed. Work note given. Patient verbalized understanding. Written instructions provided in Kazakh. The patient was discharged by the physician doctor assistant. She was discharged home and unaccompanied at time of discharge. She left ambulatory and via private vehicle. Patient driving. --17:17 04/15/19 Gini Duque R.N. 17:16 04/15/19. BP: deferred. HR: 90. RR: 18. O2 saturation: 98% on room air. Temp: 99.1 F (temporal). Pain level now: 07/25. --17:17 04/15/19 Gini Duque R.N.Locked/Released at 04/15/2019 17:26 by Gini Duque R.N. Name Value Range Interpretation Code Description Data Sindi rce(s) Supporting Document(s) ID Date Data Source [id number] 04/15/2019 03:39:00 PM EST [facility] 1 Clinical Report - Physicians/Mid Levels [facility] Emergency Department [address] [place] [address] Phone #: ext- [phone] 04/15/2019 15:29 Patient: LORRAINE BLANCO Sex: F : 1985 Age: 33y Time Seen: 15:43 04/15/2019. Arrived- By private vehicle. Historian- patient.HISTORY OF PRESENT ILLNESS Chief Complaint: LOWER EXTREMITY PAIN and SWELLING and ; PAIN, SWELLING and ALTERED SENSATION IN THE LEFT FOOT. This started 3 weeks ago and is still present (Pt states she has had left foot pain for quite some time, years, but now she voices over the past 2-3 weeks the foot pain has increased much, she's not certain if it's her boot she wears or a bunion). It was gradual in onset and has been constant. Severity is described as being moderate. It has become recently worse. The quality is noted to be sharp, "pain" and similar to prior episodes. It is described as radiating to the left calf. Symptoms located in the area of the left foot. The patient has had swelling, but not had redness. She has had difficulty walking. No bladder dysfunction, bowel dysfunction or sensory loss. Patient denies an injury. Similar symptoms previously. Patient has had similar symptoms several times. Recent medical care: Not recently seen/assessed.REVIEW OF SYSTEMSLast normal menstrual period- Apr 09. No cough, chest pain, difficulty breathing, fever or skin rash. Noenlarged lymph nodes, neck pain, back pain, headache or blurred vision. No sore throat, abdominal pain,vomiting, diarrhea or black stools. No difficulty with urination or bloody stools.PAST HISTORYProblems:Anemia. Additional Surgeries: Dilatation Curettage. Hernia Repair. Hip Surgery. Tubal Ligation. Medications: Iron Oral (Tablet 325 (65 Fe) mg) 1 tablet, daily. Ibuprofen Oral (Tablet 800 mg) 1 tablet, as needed. Allergies: No Known Drug Allergy.SOCIAL HISTORYSmoker- current status unknown (occasional cigar smoker). Alcohol use; consumes wine occasionally. 2 Clinical Report - Physicians/[facility] Emergency Department [address] [place] [address] Phone #: ext- [phone] 04/15/2019 15:29 Patient: LORRAINE BLANCO Sex: F : 1985 Age: 33y No drug use.PHYSICAL EXAMVital Signs: 04/15/2019 15:30 BP: 135/94. MAP: 107. HR: 102. RR: 16. O2 saturation: 100% on room air.Temp: 97.9 F. Pain level now: 07/25. Have been reviewed as abnormal. Hypertensive. Tachycardic.Oxygen saturation normal.Appearance: Alert. Oriented X3. No acute distress.Eyes: Pupils equal, round and reactive to light. Eyes normal inspection.ENT: Ears normal. Nose normal. Pharynx normal.Neck: Normal inspection.CVS: Tachycardia. Heart sounds normal.Respiratory: No respiratory distress.Abdomen: Nontender.Back: Normal inspection.Skin: Skin intact. Skin warm and dry. Normal skin color. Normal skin turgor.Extremities: Left foot: moderate tenderness and swelling of the distal dorsal aspect of the foot and firsttoe. Limited weight bearing secondary to pain. Neurovascular intact distally. (1st MTPJ hallux valgus).Extremities otherwise negative.Neuro: Oriented X 3.LABS, X-RAYS, AND EKGLt Foot X-ray: No fracture. Mild soft tissue swelling. (Bunion no fx). Views: 3 view foot series. TheX-rays were interpreted by the radiologist and contemporaneously by me. Interpretation time: :.PROGRESS AND PROCEDURESCourse of Care: :Apr 15 2019. Evaluation after observation. (Discussed exam and xray findingsand pt is agreeable with dx and t x plan.). Patient counseled in person regarding the patient's stable condition, test results, diagnosis and need for follow-up. Patient agrees with plan of care. 17:Apr 15 2019. Disposition: Discharged home in good and improved condition (17:Apr 15 2019).CLINICAL IMPRESSION (Bunion Left 1MTPJ).INSTRUCTIONS You may walk and bear weight as tolerated (soft shoe profile until seen by your DONITA PA). (Try Bunion pads). 3 Clinical Report - Physicians/Mid Levels [facility] Emergency Department [address] [place] [address] Phone #: ext- [phone] 04/15/2019 15:29 Patient: LORRAINE BLANCO Sex: F : 1985 Age: 33y Follow-up: Follow up with your doctor Wednesday. Reason for referral: evaluation, treatment and refer to Podiatry. Summary of care provided to patient. Understanding of the discharge instructions verbalized by patient.(Electronically signed by DEIRDRE Monge 04/15/2019 19:48) Name Value Range Interpretation Code Description Data Sindi rce(s) Supporting Document(s) ID Date Data Source [id number] 03/06/2019 09:48:00 AM EST [facility] [address] [place] [address] PHONE: [phone] FAX: [phone] Name .................. : FRANCIS Frias Acct Number.................. : [id number] ROOM. ................. : MR Number ................... : [id number] Stay type ............. : O/P Discharge Date......... ... : 03/03/19 Admit Date ......... : 03/03/19 Admit Phys .................... : OSCAR TRAN Date of ....... : 1985 Family Phys ................... : UNKNOWN CO Phone .................. : [phone] Age ................................ : 33 Film# .................. .:[id number] Sex ................................. : F Unsigned transcriptions are preliminary reports and do not represent a medical or legal document MRI LOWER EXT ANY JT W CONT 03100TH COMPLETE:03/03/19 10:42 [facility] [id number] (REASON FOR PROCESS: PAIN MRI OF THE PELVIS AND LEFT HIP AFTER MR ARTHROGRAM: FINDINGS: There is a small tear to the superior aspect of the left acetabular labrum. The labrum is otherwise intact. The bony structures are unremarkable. The soft tissues are unremarkable. IMPRESSION: Tear to the superior aspect of the left acetabular labrum. Electronically Reviewed and Signed By Jana Grande MD , 03/06/19 09:48, MRA Transcribe Initials: DZ , Transcribe Date: 03/03/19 14:28, Dictation Date: Copy for: OSCAR OG Copy for: [address] [place] [address] REC Page 1 of 1 Name Value Range Interpretation Code Description Data Sindi rce(s) Supporting Document(s) ID Date Data Source [id number] 03/03/2019 01:29:00 PM [facility] [address] [place] [address] PHONE: [phone] FAX: [phone] Name .................. : FRANCIS LORRAINE Altagracia Acct Number.................. : [id number] ROOM. ................. : MR Number ................... : [id number] Stay type ............. : O/P Discharge Date......... ... : 03/03/19 Admit Date ......... : 03/03/19 Admit Phys .................... : OSCAR TRAN Date of ....... : 1985 Family Phys ................... : UNKNOWN CO Phone .................. : [phone] Age ................................ : 33 Film# .................. .:[id number] Sex ................................. : F Unsigned transcriptions are preliminary reports and do not represent a medical or legal document INJECTION FOR HIP ARTHROGRAM [id number] COMPLETE:03/03/19 09:20 [id number] REASON FOR EXAM: PAIN FLUOROSCOPIC EXAMINATION OF THE LEFT HIP FOR ARTHROGRAM: INDICATION: Pain. PROCEDURE: The benefits and risks of the examination were discussed with the patient. The patient has given informed consent for the procedure. A time out was performed confirming the left hip is the proper hip for today's examination. The skin surface was marked using fluoroscopic guidance. The skin was prepped and dressed in normal sterile fashion. Superficial and deep Lidocaine administration was performed with a 25-gauge needle. A 22- gauge spinal needle was then placed and advanced under fluoroscopic guidance. The needle was passed into the joint space at which time iodinated contrast was administered to confirm proper placement. Approximately 5 cc of iodinated contrast was administered. Once the proper placement was confirmed, approximately 10 cc of 1:200 Gadolinium solution was administered. The needle was then removed. The skin was cleansed and bandaged. No complications were experienced during the procedure. 3 images are obtained and 5 seconds of fluoroscopy was utilized. Examination dictated by DEIRDRE Malin. Examination was reviewed with Sami Grande MD, radiologist at the time of this dictation. Electronically Reviewed and Signed By Sami Grande MD , 03/03/19 13:29, MRA Page 1 of 2 [place] [address] PHONE: [phone] FAX: [phone] Name .................. : FRANCIS Frias Acct Number.................. : [id number] ROOM. ................. : MR Number ................... : [id number] Stay type ............. : O/P Discharge Date......... ... : 03/03/19 Admit Date ......... : 03/03/19 Admit Phys .................... : OSCAR TRAN Date of ....... : 1985 Family Phys ................... : UNKNOWN CO Phone .................. : [phone] Age ................................ : 33 Film# .................. .:[id number] Sex ................................. : F Unsigned transcriptions are preliminary reports and do not represent a medical or legal document INJECTION FOR HIP ARTHROGRAM [id number] COMPLETE:03/03/19 09:20 [id number] REASON FOR EXAM: PAIN Transcribe Initials: RANDY , Transcribe Date: 03/03/19 10:03, Dictation Date: Copy for: OSCAR OG Copy for: 710 MED REC Page 2 of 2 Name Value Range Interpretation Code Description Data Sindi rce(s) Supporting Document(s) Procedure Vital Signs ID Date Data Source UNK Name Value Range Interpretation Code Description Data Source(s) Body weight 84.937 kg 84.937 kg [facility] ([facility]) Body mass index (BMI) [Ratio] 30.2 kg/m2 30.2 k g/m2 [facility] ([facility]) Body weight 187.25 [lb_av] 187.25 [lb_av] [facility] ([facility]) Body height 66 [in_i] 66 [in_i] [facility] ([facility]) 5'6" Diastolic blood pressure 76 mm[Hg] 76 mm[Hg] [facility] ([facility]) Systolic blood pressure 116 mm[Hg] 116 mm[Hg] [facility] ([facility]) Body weight 87.998 kg 87.998 kg [facility] ([facility]) Body mass index (BMI) [Ratio] 31.3 kg/m2 31.3 k g/m2 [facility] ([facility]) Body weight 194.00 [lb_av] 194.00 [lb_av] [facility] ([facility], ) Body height 66 [in_i] 66 [in_i] [facility] ([facility], ) 5'6" Body temperature 98.4 [degF] 98.4 [degF] [facility] ([facility]) Respiratory rate 16 /min 16 /min [facility] ( [facility]) Heart rate 76 /min 76 /min [facility] ([facility], ) Diastolic blood pressure 82 mm[Hg] 82 mm[Hg] [facility] ([facility]) Systolic blood pressure 118 mm[Hg] 118 mm[Hg] [facility] ([facility], )
[2020-03-06] MEDS ORDERED: GABA-282 PO (20:44)
[2020-03-06] MEDS ORDERED: ONDANSETRON 4 MG ORAL DISINTEGRATING TAB PO ONE (22:00)
[2020-03-06] MEDS ORDERED: KETOROLAC 60MG 2ML VIAL IM ONE (22:00)
[2020-03-06] MEDS ORDERED: KETO10TAB PO (22:02)
[2020-03-06] MEDS ORDERED: ONDA4TAB6 PO (22:02)
[2020-03-06 22:18] VITALS: BP 144/90
--- OUTSIDE RECORDS SUMMARY | 2020-03-06 22:18 | CCD ---
Author Author [facility] Organization [facility] Address Unknown Phone Unavailable Care Team Providers Care President [employer] Name Role Phone MAX, E TAPAN DO Unavailable Unavailable MAX, [...] protected by Article 27-F of the [facility] Public Health law. If you continue you may have access to information: Regarding HIV / AIDS; Provided by facilities licensed or operated by the [facility] Office of Mental Health; or Provided by the [facility] Office for People With Developmental Disabilities. If such information is present, then the following [facility] mandated warning applies: This information has been [...] law may result in a fine or mcc sentence or both. A general authorization for the release of medical or other information is NOT sufficient authorization for further disc losure. Encounters Encounter Providers Location Date Indications Data Source(s ) Outpatient Attender: NIC SADLER MD Main office [facility] 11/20/2019 02:30:[facility] [place] Outpatient Attender: ANDRY EAGLE 07:58:00 AM EDT - 11/17/2019 08:58:00 AM EDT [facility] Patient discharged. Outpatient Attender: MIRACLE SERAFINGM LOZOYA 2019 08:15:54 AM EDT - 11/14/2019 05:30:00 AM EDT [facility] Patient discharged. Outpatient Attender: ANDRY EAGLE 03:53:39 PM EDT - 11/07/2019 02:24:00 PM EDT [facility] Patient discharged. Outpatient Attender: MIRACLE SERAFINGM LOZOYA 2019 01:15:00 PM EDT - 10/12/2019 01:15:00 PM EDT [facility] Outpatient Attender: TAPAN Nieves/Jose/Maddie forte 09/25/2019 03:00:00 PM EDT [facility] ([facility], ) Outpatient Attender: Allan Kim RPA-C 0 09/20/2019 12:07:52 PM EDT - 10/26/2019 10:39:00 AM EDT [facility] Patient discharged. Outpatient Attender: Allan Kim RPA-C 0 08/04/2019 11:41:43 AM EDT - 08/05/2019 06:00:00 AM EDT [facility] Patient discharged. Emergency Attender: BILL HOWARD MD 03:39:00 PM [facility] - 04/15/2019 05:17:00 PM [facility] Patient discharged. Outpatient Attender: LENKA MOORE 09:12:00 AM [facility] - 03/03/2019 10:12:00 AM [facility] Medications Medication Brand Name Start Date Product Form Dose Route Admi nistrative Instructions Pharmacy Instructions Status Indications Reaction Description Data Source(s) zonisamide 25 MG Oral Capsule Zonisamide 11/20/2019 12:00:00 AM EDT ORAL active [facility] ([facility], ) zonisamide 50 MG Oral Capsule Zonisamide 11/20/2019 12:00:00 AM EDT ORAL active [facility] ([facility], ) Insurance Providers Payer name Policy type / Coverage type Policy ID Covered green party ID Covered green party's relationship to mcmullen Policy Mcmullen Plan Information [facility] ACTIVE DUTY [id number] SP [id number] [facility] HUMANA - O/P [id number] [id number] [facility] [place] [id number] [id number] [facility] ACTIVE DUTY [id number] SP [id number] SELF PAY ONLY SP U [id number] Self [id number] U [id number] Self [id number] Problems, Conditions, and Diagnoses Code Display Name Description Problem Type Effective Dates Data Source(s) R519 Headache, unspecified Headache, unspecified Diagnosis 11/17/2019 07:58:00 AM EDT [facility] G4733 Obstructive sleep apnea (adult) (pediatr ic) Obstructive sleep apnea (adult) (pediatric) Diagnosis 11/13/2019 08:00:00 PM EDT [facility] R99 Ill-defined and unknown cause of mortali ty Ill-defined and unknown cause of mortality Diagnosis 11/07/2019 02:24:00 PM EDT [facility] [id number] Bunion of left foot Bunion of left foot Diagnosis 0 10/12/2019 01:15:00 PM EDT [facility] G4489 Other headache syndrome Other headache syndrome Diagno sis 08/04/2019 08:30:00 PM EDT [facility] G4761 Periodic limb movement disorder Periodic limb movement disorder Diagnosis 08/04/2019 08:30:00 PM EDT [facility] R400 Somnolence Somnolence Diagnosis 08/04/2019 08:30:00 PM ED T [facility] R0683 Snoring Snoring Diagnosis 08/04/2019 08:30:[address] [facility] [id number] Pain in left foot Pain in left foot Diagnosis 04/15/2019 03:39:00 PM 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 Surgeries/Procedures Procedure Description Date Indications Data Source(s) Magnetic Resonance Angiogtaphy Head W/O Contrast Material(S) 12/18/2019 12:00:00 AM EST [facility] ([facility], ) Magnetic Resonance Angiogtaphy Head W/O Contrast Material(S) 12/18/2019 12:00:00 AM EST [facility] ([facility], ) Magnetic Resonance Angiography Neck W/O Contrast Materials 12/18/2019 12:00:00 AM EST [facility] ([facility], ) Magnetic Resonance Angiography Neck W/O Contrast Materials 12/18/2019 12:00:00 AM EST [facility] ([facility], ) MRI SPINAL CANAL CERVICAL W/O CONTRAST MATRL 0 12:00:00 AM EST [facility] ([facility], ) MRI SPINAL CANAL CERVICAL W/O CONTRAST MATRL 0 12:00:00 AM EST [facility] ([facility], ) NON-INVASIVE PHYSIOLOGIC STUDY EXTREMITY 3 LEVLS 11/28 12:00:00 AM EDT [facility] ([facility], ) NON-INVASIVE PHYSIOLOGIC STUDY EXTREMITY 3 LEVLS 11/28 12:00:00 AM EDT [facility] ([facility], ) NON-INVASIVE PHYSIOLOGIC STUDY EXTREMITY 3 LEVLS 11/28 12:00:00 AM EDT [facility] ([facility], ) NON-INVASIVE PHYSIOLOGIC STUDY EXTREMITY 3 LEVLS 11/28 12:00:00 AM EDT [facility] ([facility], ) TSTG ANS FUNCJ CARDIOVAGAL INNERVAJ PARASYMP 0 12:00:00 AM EDT [facility] ([facility], ) TSTG ANS FUNCJ CARDIOVAGAL INNERVAJ PARASYMP 0 12:00:00 AM EDT [facility] ([facility], ) TESTING AUTONOMIC NERVOUS SYSTEM FUNCTION 11/29/2019 1 2:00:00 AM EDT [facility] ([facility], ) TESTING AUTONOMIC NERVOUS SYSTEM FUNCTION 11/29/2019 1 2:00:00 AM EDT [facility] ([facility], ) Results ID Date Data Source [id number] 11/17/2019 12:39:00 [place] [address] PHONE: [phone] FAX: [phone] Name .................. : FRANCIS Frias Acct Number.................. : [id number] ROOM. ................. : Number ................... : [id number] Stay type ............. : O/P Discharge Date......... ... : 11/17/19 Admit Date .... ..... : 11/17/19 Admit Phys .................... : SHAGUFTA BACA Date of ....... : 1985 Family Phys ................... : UNKNOWN CO Phone .................. : [phone] Age ................................ : 33 Film# .................. .:[id number] Sex ................................. : F Unsigned transcriptions are preliminary reports and do not represent a medical or legal document MRI BRAIN W/O CONTRAST [id number] COMPLETE:11/17/19 08:01 61138 (REASON FOR PROCEDURE HEADACHES MRI OF THE [...] Copy for: SHAGUFTA WILDE Copy for: Lorrie [facility] Page 1 of 1 Name Value Range Interpretation Code Description Data Sindi rce(s) Supporting Document(s) ID Date Data Source [id number] 05/05/2019 05:44:00 PM EDT [facility] ([facility]) Name Value Range Interpretation Code Description Data Sindi rce(s) Supporting Document(s) Glucose, Fasting 97 mg/dL 70-100 Normal (applies to non-numeric results) [facility] ([facility]) Glomerular Filtration Rate Laboratory test result Normal (applies to non- numeric results) [facility]) <content>Units are mL/min/1.73 m2</content>
<content></content>
<content>Chronic Kidney Disease Staging per NKF:</content>
<content></content>
<content>Stage I & II GFR >=60 Normal to Mildly Decreased</content>
<content>Stage III GFR 30-59 Moderately Decreased</content>
<content>Stage IV GFR 15-29 Severely Decreased</content>
<content>Stage V GFR <15 Very Little GFR Left</content>
<content>ESRD GFR <15 on TWISTING FRAME FIXER</content>
<content></content> Blood Urea Nitrogen 10 mg/dL 7-18 Normal (applies to non-nume karly results) [facility] ([facility]) Creatinine For GFR 0.82 mg/dL 0.55-1.30 Normal (applies to non -numeric results) [facility] ([facility]) Chloride Level 108 meq/L 98-107 Above high normal [facility] ([facility]) Sodium Level 139 meq/L 136-145 Normal (applies to non-numeric res ults) [facility]) Potassium Serum 3.7 meq/L 3.5-5.1 Normal (applies to non-numeric results) [facility]) Carbon Dioxide Level 28 meq/L 21-32 Normal (applies to non-num yared results) [facility] ([facility]) Anion Gap 3 meq/L 8-16 Below low normal [facility] ( [facility]) Calcium Level 8.8 mg/dL 8.5-10.1 Normal (applies to non-numeric re sults) [facility] ([facility]) ID Date Data Source [id number] 05/05/2019 05:44:00 PM EDT [facility] ([facility]) Name Value Range Interpretation Code Description Data Sindi rce(s) Supporting Document(s) White Blood Count 14.1 10 4.0-10.0 Above high normal [facility] ([facility]) Red Blood Count 4.14 10 4.00-5.40 Normal (applies to non-numeric results) [facility] ([facility]) Hemoglobin 10.0 g/dL 12.0-15.5 Below low normal [facility] ( [facility]) Hematocrit 32.9 % 36.0-47.0 Below low normal [facility] ( [facility]) Mean Corpuscular Volume 79.5 fl 80.0-96.0 Below low normal [facility] ([facility]) Mean Corpuscular Hemoglobin 24.2 pg 27.0-33.0 Below low normal [facility] ([facility]) Mean Corpuscular HGB Conc 30.4 g/dL 32.0-36.5 Below low normal [facility] Platelet Count, Automated 221 10 150-450 Normal (applies to non-numeric results) [facility] ([facility]) Red Cell Distribution Width 16.5 % 11.5-14.5 Above high normal [facility] ([facility]) Nucleated Red Blood Cell % 0.0 % 0-0 Normal (applies to n on-numeric results) [facility] ([facility]) ID Date Data Source [id number] 04/17/2019 09:09:00 [place] [address] PHONE: [phone] FAX: [phone] Name .................. : FRANCIS Frias Acct Number.................. : [id number] ROOM. ................. : TR-04 Number ................... : [id number] Stay type ............. : E/R Discharge Date......... ... : 04/15/19 Admit Date ... ...... : 04/15/19 Admit Phys .................... : LEE SOARES Date of ....... : 1985 Family Phys ................... : UNKNOWN CO Phone .................. : [phone] Age ................................ : 33 Film# .................. .:[id number] Sex ................................. : F Unsigned transcriptions are preliminary reports and do not represent a medical or legal document FOOT COMPLETE-3 OR MORE [facility] [address] COMPLETE:04/15/19 17:37 [facility] [address] Reason(s): Pain LEFT FOOT SERIES: FINDINGS: Some [...] rce(s) Supporting Document(s) ID Date Data Source [id number] 04/15/2019 03:39:00 PM EST [facility] 1 OrderSheet [facility] Emergency Department [address] [place] [address] Phone #: [phone] 04/15/2019 15:29 Patient: LORRAINE BLANCO Sex: F : 1985 Age: 33yWEIGHT:81.6 kg (S) HEIGHT:66 inches (S) BMI:29.0ALLERGIE S: No Known Drug AllergyCHIEF COMPLAINT: pain, swelling, pain, swelling, altered sensation, Lt, feet, in:LAB ORDERSOrder Description Priority Entered Acknowledged InitialedDIAGNOSTIC STUDY ORDERSOrder Description Priority Entered Acknowledged InitialedFoot Complete Left STAT 15:49 04/15/2019 Ack'd: 15:52 15:55 [place](Oxygen?(No)) Gini Daly ED, Jesse [facility] PA; R.N. [...] rce(s) Supporting Document(s) ID Date Data Source [id number] 04/15/2019 03:39:00 PM [facility] 1 Medication Reconciliation Report [facility] Emergency Department [address] [place] [address] Phone #: ext- [phone] 04/15/2019 15:29 Patient: [...] rce(s) Supporting Document(s) ID Date Data Source [id number] 04/15/2019 03:39:00 PM [facility] 1 Medication Administration Record [facility] Emergency Department [address] [place] [address] Phone #: ext- [phone] 04/15/2019 15:29 Patient: LORRAINE BLANCO Sex: F : 1985 Age: 33yWeight: 81.6 kgHeight/Length: 66 inBMI: 29ALLERGIES: No Known Drug Allergy Date/Time Medication Administered Medication OrderedGiven TYLENOL [PO] (APAP) Tylenol PO 1000 mg15:52 04/15/2019 Dose: 1000 mg Tablets Gini Henderson R.N. Name Value Range Interpretation Code Description Data Sindi rce(s) Supporting Document(s) ID Date Data Source [id number] 04/15/2019 03:39:00 PM [facility] 1 General Instructions [facility] Emergency Department [address] [place] [address] Phone #: ext- [phone] 04/15/2019 15:29 Patient: [...] seen by your PA).(Electronically signed by DEIRDRE Moneg 04/15/2019 19:48) Name Value Range Interpretation Code Description Data Sindi rce(s) Supporting Document(s) ID Date Data Source [id number] 04/15/2019 03:39:00 PM 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 --15:32 04/15/19 Harley Lynne RN.PROBLEMS:Anemia. --15:33 04/15/19 Harley Lynne RN.ADDITIONAL SURGERIES:Dilatation Curettage.Hernia Repair.Hip Surgery.Tubal Ligation. --15:33 04/15/19 Harley Lynne RN.HistoryPAST MEDICAL HX: Tetanus status: up-to-date. Immunizations: up-to-date. Has had a tubal ligation. 2 Clinical Report - Nurses [facility] Emergency Department [address] [place] [address] Phone #: ext- [phone] 04/15/2019 15:29 Patient: [...] Duque R.N. 3 Clinical Report - Nurses [facility] Department [address] [place] [address] Phone #: ext- [phone] 04/15/2019 15:29 Patient: LORRAINE BLANOC Sex: F : 1985 Age: 33y The [...] Patient verbalized understanding. Written instructions provided in Faroese. The patient was discharged by the physician floral assistant. She was discharged home and unaccompanied [...] rce(s) Supporting Document(s) ID Date Data Source [id number] 04/15/2019 03:39:00 PM EST [facility] 1 Clinical Report - Physicians/Mid Levels [facility] Emergency Department [address] [place] [address] Phone #: ext- [phone] 04/15/2019 15:29 Patient: [...] consumes wine occasionally. 2 Clinical Report - Physicians/[facility] Emergency Department [address] [place] [address] Phone #: ext- [phone] 04/15/2019 15:29 Patient: LORRAINE BLANCO Sex: F [...] pads). 3 Clinical Report - Physicians/Mid Levels [facility] Emergency Department [address] [place] [address] Phone #: ext- [phone] 04/15/2019 15:29 Patient: LORRAINE BLANCO Sex: F : 1985 Age: 33y Follow-up: Follow up with your doctor Wednesday. Reason for referral: evaluation, treatment and refer to Podiatry. Summary of care provided to patient. Understanding of the discharge instructions verbalized by patient.(Electronically signed by DEIRDRE Monge 04/15/2019 19:48) Name Value Range Interpretation Code Description Data Sindi rce(s) Supporting Document(s) ID Date Data Source [id number] 03/06/2019 09:48:00 AM EST [facility] [address] [place] [address] PHONE: [phone] FAX: [phone] Name .................. : FRANCIS Frias Acct Number.................. : [id number] ROOM. ................. : MR Number ................... : [id number] Stay type ............. : O/P Discharge Date......... ... : 03/03/19 Admit Date ......... : 03/03/19 Admit Phys .................... : OSCAR TRAN Date of ....... : 1985 Family Phys ................... : UNKNOWN CO Phone .................. : [phone] Age ................................ : 33 Film# .................. .:[id number] Sex ................................. : F Unsigned transcriptions are preliminary reports and do not represent a medical or legal document MRI LOWER EXT ANY JT W CONT [id number] COMPLETE:03/03/19 10:42 [facility] 15905 (REASON FOR PROCESS: PAIN MRI OF THE [...] Date: Copy for: OSCAR OG Copy for: [address] [place] [address] REC Page 1 of 1 Name Value Range Interpretation Code Description Data Sindi rce(s) Supporting Document(s) ID Date Data Source [id number] 03/03/2019 01:29:00 PM [facility] [address] [place] [address] PHONE: [phone] FAX: [phone] Name .................. : FRANCIS LORRAINE Altagracia Acct Number.................. : [id number] ROOM. ................. : MR Number ................... : [id number] Stay type ............. : O/P Discharge Date......... ... : 03/03/19 Admit Date ......... : 03/03/19 Admit Phys .................... : OSCAR TRAN Date of ....... : 1985 Family Phys ................... : UNKNOWN CO Phone .................. : [phone] Age ................................ : 33 Film# .................. .:[id number] Sex ................................. : F Unsigned transcriptions are preliminary reports and do not represent a medical or legal document INJECTION FOR HIP ARTHROGRAM 74053 COMPLETE:03/03/19 09:20 95562 REASON FOR EXAM: PAIN FLUOROSCOPIC EXAMINATION OF [...] 03/03/19 13:29, [facility] [address] [place] [address] PHONE: [phone] FAX: [phone] Name .................. : FRANCIS Frias Acct Number.................. : [id number] ROOM. ................. : MR Number ................... : [id number] Stay type ............. : O/P Discharge Date......... ... : 03/03/19 Admit Date ......... : 03/03/19 Admit Phys .................... : OSCAR TRAN Date of ....... : 1985 Family Phys ................... : UNKNOWN CO Phone .................. : [phone] Age ................................ : 33 Film# .................. .:[id number] Sex ................................. : F Unsigned transcriptions are preliminary reports and do not represent a medical or legal document INJECTION FOR HIP ARTHROGRAM 82260 COMPLETE:03/03/19 09:20 52504 REASON FOR EXAM: PAIN Transcribe Initials: RANDY , Transcribe Date: 03/03/19 10:03, Dictation Date: Copy for: OSCAR OG Copy for: 710 MED REC Page 2 of 2 Name Value Range Interpretation Code Description Data Sindi rce(s) Supporting Document(s) Procedure Vital Signs ID Date Data Source UNK Name Value Range Interpretation Code Description Data Source(s) Body weight 84.937 kg 84.937 kg [facility] ([facility]) Body mass index (BMI) [Ratio] 30.2 kg/m2 30.2 k g/m2 [facility] ([facility]) Body weight 187.25 [lb_av] 187.25 [lb_av] [facility] ([facility]) Body height 66 [in_i] 66 [in_i] [facility] ([facility]) 5'6" Diastolic blood pressure 76 mm[Hg] 76 mm[Hg] [facility] ([facility]) Systolic blood pressure 116 mm[Hg] 116 mm[Hg] M [facility] ([facility]) Body weight 87.998 kg 87.998 kg [facility] ([facility]) Body mass index (BMI) [Ratio] 31.3 kg/m2 31.3 k g/m2 [facility] ([facility]) Body weight 194.00 [lb_av] 194.00 [lb_av] [facility] ([facility], ) Body height 66 [in_i] 66 [in_i] [facility] ([facility], ) 5'6" Body temperature 98.4 [degF] 98.4 [degF] [facility] ([facility]) Respiratory rate 16 /min 16 /min [facility] ( [facility]) Heart rate 76 /min 76 /min [facility] ([facility], ) Diastolic blood pressure 82 mm[Hg] 82 mm[Hg] [facility] ([facility]) Systolic blood pressure 118 mm[Hg] 118 mm[Hg] [facility] ([facility], )
== END 2020-03-06 22:20 | disposition home or self-care (01) ==
LOC: M ED 20:26
DX: N80.9 Endometriosis, unspecified (principal); G47.33 Obstructive sleep apnea (adult) (pediatric); Z79.899 Other long term (current) drug therapy; Z79.3 Long term (current) use of hormonal contraceptives
CPT/HCPCS: 99283; Q0162

== ENCOUNTER 2020-03-14 18:32 | Emergency (ER) | payer OTHER ==
[~2020-03-14] VITALS: Ht 167.6 cm; Wt 87.3 kg
[~2020-03-14 18:32] MED LIST changes: +GABA-282 PO
--- OUTSIDE RECORDS SUMMARY | 2020-03-14 18:39 | CCD ---
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 If you continue you may have access to information: Regarding HIV / AIDS; Provided by facilities licensed or operated by the [facility] Office of Mental Health; or Provided by the [facility] Office for People With Developmental Disabilities. If such information is present, then the following [facility] mandated warning applies: This information has [...] law may result in a fine or fdc sentence or both. A general authorization for the release of medical or other information is NOT sufficient authorization for further disc losure. Encounters Encounter Providers Location Date Indications Data Source(s ) Outpatient Attender: NIC SADLER MD Main office [facility] 11/20[facility]2019 02:30:00 [facility] [place] Outpatient Attender: ANDRY EAGLE 07:58:00 AM EDT - 11/17/2019 08:58:00 AM EDT [facility] Patient discharged. Outpatient Attender: MIRACLE SERAFINGM LOZOYA 2019 08:15:54 AM EDT - 11/14/2019 05:30:00 AM EDT [facility] Patient discharged. Outpatient Attender: ANDRY EAGLE 03:53:39 PM EDT - 11/07/2019 02:24:00 PM EDT [facility] Patient discharged. Outpatient Attender: MIRACLE SERAFINGM LOZOYA 2019 01:15:00 PM EDT - 10/12/2019 01:15:00 PM EDT [facility] Outpatient Attender: TAPAN Nieves/Jose/Maddie forte 09/25/2019 03:00:00 PM EDT [facility] ([facility], ) Outpatient Attender: Allan Kim RPA-C 0 09/20/2019 12:07:52 PM EDT - 10/26/2019 10:39:00 AM EDT [facility] Patient discharged. Outpatient Attender: Allan Kim RPA-C 0 08/04/2019 11:41:43 AM EDT - 08/05/2019 06:00:00 AM EDT [facility] Patient discharged. Emergency Attender: BILL HOWARD MD 03:39:00 PM [facility] - 04/15/2019 05:17:00 PM [facility] Patient discharged. Outpatient Attender: LENKA MOORE 09:12:00 AM [facility] - 03/03/2019 10:12:00 AM [facility] Medications Medication Brand Name Start Date Product Form Dose Route Admi nistrative Instructions Pharmacy Instructions Status Indications Reaction Description Data Source(s) zonisamide 25 MG Oral Capsule Zonisamide 11/20/2019 12:00:00 AM EDT ORAL active [facility] ([facility], ) zonisamide 50 MG Oral Capsule Zonisamide 11/20/2019 12:00:00 AM EDT ORAL active [facility] ([facility], ) Insurance Providers Payer name Policy type / Coverage type Policy ID Covered republican ID Covered republican's relationship to mcmullen Policy Mcmullen Plan Information [facility] ACTIVE DUTY [id number] SP [id number] [facility] HUMANA - O/P [id number] 18 [id number] [facility] HUMAN [place] [id number] 18 [id number] [facility] ACTIVE DUTY [id number] SP [id number] SELF PAY ONLY SP U [id number] Self [id number] U [id number] Self [id number] Problems, Conditions, and Diagnoses Code Display Name Description Problem Type Effective Dates Data Source(s) R519 Headache, unspecified Headache, unspecified Diagnosis 11/17/2019 07:58:00 AM EDT [facility] G4733 Obstructive sleep apnea (adult) (pediatr ic) Obstructive sleep apnea (adult) (pediatric) Diagnosis 11/13/2019 08:00:00 PM EDT [facility] R99 Ill-defined and unknown cause of mortali ty Ill-defined and unknown cause of mortality Diagnosis 11/07/2019 02:24:00 PM EDT [facility] C11186 Bunion of left foot Bunion of left foot Diagnosis 0 10/12/2019 01:15:00 PM EDT [facility] G4489 Other headache syndrome Other headache syndrome Diagno sis 08/04/2019 08:30:00 PM EDT [facility] G4761 Periodic limb movement disorder Periodic limb movement disorder Diagnosis 08/04/2019 08:30:00 PM EDT [facility] R400 Somnolence Somnolence Diagnosis 08/04/2019 08:30:00 PM ED T [facility] R0683 Snoring Snoring Diagnosis 08/04/2019 08:30:00 PM ED [facility] S53351 Pain in left foot Pain in left foot Diagnosis 04/15/2019 03:39:00 PM [facility] 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, 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, left hip Diagnosis 03/03/2019 09:12:00 AM [facility] Surgeries/Procedures Procedure Description Date Indications Data Source(s) Magnetic Resonance Angiogtaphy Head W/O Contrast Material(S) 12/18/2019 12:00:00 AM EST [facility] ([facility], ) Magnetic Resonance Angiogtaphy Head W/O Contrast Material(S) 12/18/2019 12:00:00 AM EST [facility] ([facility], ) Magnetic Resonance Angiography Neck W/O Contrast Materials 12/18/2019 12:00:00 AM EST [facility] ([facility], ) Magnetic Resonance Angiography Neck W/O Contrast Materials 12/18/2019 12:00:00 AM EST [facility] ([facility], ) MRI SPINAL CANAL CERVICAL W/O CONTRAST MATRL 0 12:00:00 AM EST [facility] ([facility], ) MRI SPINAL CANAL CERVICAL W/O CONTRAST MATRL 0 12:00:00 AM EST [facility] ([facility], ) NON-INVASIVE PHYSIOLOGIC STUDY EXTREMITY 3 LEVLS 11/28 12:00:00 AM EDT [facility] ([facility], ) NON-INVASIVE PHYSIOLOGIC STUDY EXTREMITY 3 LEVLS 11/28 12:00:00 AM EDT [facility] ([facility], ) NON-INVASIVE PHYSIOLOGIC STUDY EXTREMITY 3 LEVLS 11/28 12:00:00 AM EDT [facility] ([facility], ) NON-INVASIVE PHYSIOLOGIC STUDY EXTREMITY 3 LEVLS 11/28 12:00:00 AM EDT [facility] ([facility], ) TSTG ANS FUNCJ CARDIOVAGAL INNERVAJ PARASYMP 0 12:00:00 AM EDT [facility] ([facility], ) TSTG ANS FUNCJ CARDIOVAGAL INNERVAJ PARASYMP 0 12:00:00 AM EDT [facility] ([facility], ) TESTING AUTONOMIC NERVOUS SYSTEM FUNCTION 11/29/2019 1 2:00:00 AM EDT [facility] ([facility], ) TESTING AUTONOMIC NERVOUS SYSTEM FUNCTION 11/29/2019 1 2:00:00 AM EDT [facility] ([facility], ) Results ID Date Data Source [id number] 11/17/2019 12:39:00 [place] [address] PHONE: [phone] FAX: [phone] Name .................. : FRANCIS Frias Acct Number.................. : [id number] ROOM. ................. : Number ................... : [id number] Stay type ............. : O/P Discharge Date......... ... : 11/17/19 Admit Date .... ..... : 11/17/19 Admit Phys .................... : SHAGUFTA BACA Date of ....... : 1985 Family Phys ................... : UNKNOWN CO Phone .................. : [phone] Age ................................ : 33 Film# .................. .:[id number] Sex ................................. : F Unsigned transcriptions are preliminary reports and do not represent a medical or legal document MRI BRAIN W/O CONTRAST [id number] COMPLETE:11/17/19 08:01 21564 (REASON FOR PROCEDURE HEADACHES MRI OF THE [...] Copy for: SHAGUFTA WILDE Copy for: Lorrie [facility] Page 1 of 1 Name Value Range Interpretation Code Description Data Sindi rce(s) Supporting Document(s) ID Date Data Source [id number] 05/05/2019 05:44:00 PM EDT [facility] ([facility]) Name Value Range Interpretation Code Description Data Sindi rce(s) Supporting Document(s) Glucose, Fasting 97 mg/dL 70-100 Normal (applies to non-numeric results) [facility] ([facility]) Glomerular Filtration Rate Laboratory test result Normal (applies to non- numeric results) [facility]) <content>Units are mL/min/1.73 m2</content>
<content></content>
<content>Chronic Kidney Disease Staging per NKF:</content>
<content></content>
<content>Stage I & II GFR >=60 Normal to Mildly Decreased</content>
<content>Stage III GFR 30-59 Moderately Decreased</content>
<content>Stage IV GFR 15-29 Severely Decreased</content>
<content>Stage V GFR <15 Very Little GFR Left</content>
<content>ESRD GFR <15 on CANOE INSPECTOR FINAL</content>
<content></content> Blood Urea Nitrogen 10 mg/dL 7-18 Normal (applies to non-nume karly results) [facility] ([facility]) Creatinine For GFR 0.82 mg/dL 0.55-1.30 Normal (applies to non -numeric results) [facility] ([facility]) Chloride Level 108 meq/L 98-107 Above high normal [facility] ([facility]) Sodium Level 139 meq/L 136-145 Normal (applies to non-numeric res ults) [facility]) Potassium Serum 3.7 meq/L 3.5-5.1 Normal (applies to non-numeric results) [facility]) Carbon Dioxide Level 28 meq/L 21-32 Normal (applies to non-num yared results) [facility] ([facility]) Anion Gap 3 meq/L 8-16 Below low normal [facility] ( [facility]) Calcium Level 8.8 mg/dL 8.5-10.1 Normal (applies to non-numeric re sults) [facility] ([facility]) ID Date Data Source [id number] 05/05/2019 05:44:00 PM EDT [facility] ([facility]) Name Value Range Interpretation Code Description Data Sindi rce(s) Supporting Document(s) White Blood Count 14.1 10 4.0-10.0 Above high normal [facility] ([facility]) Red Blood Count 4.14 10 4.00-5.40 Normal (applies to non-numeric results) [facility] ([facility]) Hemoglobin 10.0 g/dL 12.0-15.5 Below low normal [facility] ( [facility]) Hematocrit 32.9 % 36.0-47.0 Below low normal [facility] ( [facility]) Mean Corpuscular Volume 79.5 fl 80.0-96.0 Below low normal [facility] ([facility]) Mean Corpuscular Hemoglobin 24.2 pg 27.0-33.0 Below low normal [facility] ([facility]) Mean Corpuscular HGB Conc 30.4 g/dL 32.0-36.5 Below low normal [facility] Platelet Count, Automated 221 10 150-450 Normal (applies to non-numeric results) [facility] ([facility]) Red Cell Distribution Width 16.5 % 11.5-14.5 Above high normal [facility] ([facility]) Nucleated Red Blood Cell % 0.0 % 0-0 Normal (applies to n on-numeric results) [facility] ([facility]) ID Date Data Source [id number] 04/17/2019 09:09:00 [place] [address] PHONE: [phone] FAX: [phone] Name .................. : FRANCIS Frias Acct Number.................. : [id number] ROOM. ................. : TR-04 Number ................... : [id number] Stay type ............. : E/R Discharge Date......... ... : 04/15/19 Admit Date ... ...... : 04/15/19 Admit Phys .................... : LEE SOARES Date of ....... : 1985 Family Phys ................... : UNKNOWN CO Phone .................. : [phone] Age ................................ : 33 Film# .................. .:[id number] Sex ................................. : F Unsigned transcriptions are preliminary reports and do not represent a medical or legal document FOOT COMPLETE-3 OR MORE [facility] [address] COMPLETE:04/15/19 17:37 [facility] [address] Reason(s): Pain LEFT FOOT SERIES: FINDINGS: Some [...] rce(s) Supporting Document(s) ID Date Data Source [id number] 04/15/2019 03:39:00 PM EST [facility] 1 OrderSheet [facility] Emergency Department [address] [place] [address] Phone #: rgy- [phone] 04/15/2019 15:29 Patient: LORRAINE BLANCO Sex: F : 1985 Age: 33yWEIGHT:81.6 kg (S) HEIGHT:66 inches (S) BMI:29.0ALLERGIE S: No Known Drug AllergyCHIEF COMPLAINT: pain, swelling, pain, swelling, altered sensation, Lt, feet, in:LAB ORDERSOrder Description Priority Entered Acknowledged InitialedDIAGNOSTIC STUDY ORDERSOrder Description Priority Entered Acknowledged InitialedFoot Complete Left STAT 15:49 04/15/2019 Ack'd: 15:52 15:55 Jackson(Oxygen?(No)) Gini Daly ED, Jesse ER PA; R.N. [...] rce(s) Supporting Document(s) ID Date Data Source [id number] 04/15/2019 03:39:00 PM [facility] 1 Medication Reconciliation Report [facility] Emergency Department [address] [place] [address] Phone #: ext- [phone] 04/15/2019 15:29 Patient: [...] rce(s) Supporting Document(s) ID Date Data Source [id number] 04/15/2019 03:39:00 PM [facility] 1 Medication Administration Record [facility] Emergency Department [address] [place] [address] Phone #: ext- [phone] 04/15/2019 15:29 Patient: LORRAINE BLANCO Sex: F : 1985 Age: 33yWeight: 81.6 kgHeight/Length: 66 inBMI: 29ALLERGIES: No Known Drug Allergy Date/Time Medication Administered Medication OrderedGiven TYLENOL [PO] (APAP) Tylenol PO 1000 mg15:52 04/15/2019 Dose: 1000 mg Tablets Gini Henderson R.N. Name Value Range Interpretation Code Description Data Sindi rce(s) Supporting Document(s) ID Date Data Source [id number] 04/15/2019 03:39:00 PM [facility] 1 General Instructions [facility] Emergency Department [address] [place] [address] Phone #: ext- [phone] 04/15/2019 15:29 Patient: [...] rce(s) Supporting Document(s) ID Date Data Source [id number] 04/15/2019 03:39:00 PM [facility] 1 Clinical Report - Nurses [facility] Emergency Department [address] [place] [address] Phone #: [phone]- [phone] 04/15/2019 15:29 Patient: LORRAINE BLANCO Sex: F [...] her boot she wears or a bunion).Treatment MEAT PACKAGER:None.SEPSIS SCREEN: NEGATIVE heart rate greater than 90.JOSE [...] tubal ligation. 2 Clinical Report - Nurses [facility] Emergency Department [address] [place] [address] Phone #: ext- [phone] 04/15/2019 15:29 Patient: [...] Duque R.N. 3 Clinical Report - Nurses [facility] Emergency Department [address] [place] [address] Phone #: ext- [phone] 04/15/2019 15:29 Patient: LORRAINE BLANCO Sex: F [...] Patient verbalized understanding. Written instructions provided in Colombian. The patient was discharged by the physician assistant director of nursing. She was discharged home and unaccompanied at [...] rce(s) Supporting Document(s) ID Date Data Source [id number] 04/15/2019 03:39:00 PM EST [facility] 1 Clinical Report - Physicians/Mid Levels [facility] Emergency Department [address] [place] [address] Phone #: ext- [phone] 04/15/2019 15:29 Patient: [...] consumes wine occasionally. 2 Clinical Report - Physicians/[facility] Emergency Department [address] [place] [address] Phone #: ext- [phone] 04/15/2019 15:29 Patient: LORRAINE BLANCO Sex: F [...] pads). 3 Clinical Report - Physicians/Mid Levels [facility] Emergency Department [address] [place] [address] Phone #: ext- [phone] 04/15/2019 15:29 Patient: LORRAINE BLANCO Sex: F : 1985 Age: 33y Follow-up: Follow up with your doctor Wednesday. Reason for referral: evaluation, treatment and refer to Podiatry. Summary of care provided to patient. Understanding of the discharge instructions verbalized by patient.(Electronically signed by DEIRDRE Monge 04/15/2019 19:48) Name Value Range Interpretation Code Description Data Sindi rce(s) Supporting Document(s) ID Date Data Source [id number] 03/06/2019 09:48:00 AM EST [facility] [address] [place] [address] PHONE: [phone] FAX: [phone] Name .................. : FRANCIS Frisa Acct Number.................. : [id number] ROOM. ................. : MR Number ................... : [id number] Stay type ............. : O/P Discharge Date......... ... : 03/03/19 Admit Date ......... : 03/03/19 Admit Phys .................... : OSCAR TRAN Date of ....... : 1985 Family Phys ................... : UNKNOWN CO Phone .................. : [phone] Age ................................ : 33 Film# .................. .:[id number] Sex ................................. : F Unsigned transcriptions are preliminary reports and do not represent a medical or legal document MRI LOWER EXT ANY JT W CONT [id number] COMPLETE:03/03/19 10:42 [facility] 00356 (REASON FOR PROCESS: PAIN MRI OF THE [...] Date: Copy for: OSCAR OG Copy for: [address] [place] [address] REC Page 1 of 1 Name Value Range Interpretation Code Description Data Sindi rce(s) Supporting Document(s) ID Date Data Source [id number] 03/03/2019 01:29:00 PM [facility] [address] [place] [address] PHONE: [phone] FAX: [phone] Name .................. : FRANCIS LORRAINE Altagracia Acct Number.................. : [id number] ROOM. ................. : MR Number ................... : [id number] Stay type ............. : O/P Discharge Date......... ... : 03/03/19 Admit Date ......... : 03/03/19 Admit Phys .................... : OSCAR TRAN Date of ....... : 1985 Family Phys ................... : UNKNOWN CO Phone .................. : [phone] Age ................................ : 33 Film# .................. .:[id number] Sex ................................. : F Unsigned transcriptions are preliminary reports and do not represent a medical or legal document INJECTION FOR HIP ARTHROGRAM [id number] COMPLETE:03/03/19 09:20 [id number] REASON FOR EXAM: PAIN FLUOROSCOPIC EXAMINATION OF [...] 03/03/19 13:29, MRA [address] 2 [place] [address] PHONE: [phone] FAX: [phone] Name .................. : FRANCIS Frias Acct Number.................. : [id number] ROOM. ................. : MR Number ................... : [id number] Stay type ............. : O/P Discharge Date......... ... : 03/03/19 Admit Date ......... : 03/03/19 Admit Phys .................... : OSCAR TRAN Date of ....... : 1985 Family Phys ................... : UNKNOWN CO Phone .................. : [phone] Age ................................ : 33 Film# .................. .:[id number] Sex ................................. : F Unsigned transcriptions are preliminary reports and do not represent a medical or legal document INJECTION FOR HIP ARTHROGRAM [id number] COMPLETE:03/03/19 09:20 51088 REASON FOR EXAM: PAIN Transcribe Initials: RANDY , Transcribe Date: 03/03/19 10:03, Dictation Date: Copy for: OSCAR OG Copy for: 710 MED REC Page 2 of 2 Name Value Range Interpretation Code Description Data Sindi rce(s) Supporting Document(s) Procedure Vital Signs ID Date Data Source UNK Name Value Range Interpretation Code Description Data Source(s) Body weight 84.937 kg 84.937 kg [facility] ([facility]) Body mass index (BMI) [Ratio] 30.2 kg/m2 30.2 k g/m2 [facility] ([facility]) Body weight 187.25 [lb_av] 187.25 [lb_av] [facility] ([facility]) Body height 66 [in_i] 66 [in_i] [facility] ([facility]) 5'6" Diastolic blood pressure 76 mm[Hg] 76 mm[Hg] [facility] ([facility]) Systolic blood pressure 116 mm[Hg] 116 mm[Hg] M [facility] ([facility]) Body weight 87.998 kg 87.998 kg [facility] ([facility]) Body mass index (BMI) [Ratio] 31.3 kg/m2 31.3 k g/m2 [facility] ([facility]) Body weight 194.00 [lb_av] 194.00 [lb_av] [facility] ([facility], ) Body height 66 [in_i] 66 [in_i] [facility] ([facility], ) 5'6" Body temperature 98.4 [degF] 98.4 [degF] [facility] ([facility]) Respiratory rate 16 /min 16 /min [facility] ( [facility]) Heart rate 76 /min 76 /min [facility] ([facility], ) Diastolic blood pressure 82 mm[Hg] 82 mm[Hg] [facility] ([facility]) Systolic blood pressure 118 mm[Hg] 118 mm[Hg] [facility] ([facility], )
[2020-03-14] MEDS ORDERED: ACET-897 PO (18:53)
[2020-03-14 21:38] LABS: BASO % 0.1 % (0.0-1.0); EOS # 0.1 10^3/uL (0.0-0.5); EOS % 1.8 % (0.0-3.0); HEMATOCRIT 42.9 % (36.0-47.0); HEMOGLOBIN 13.4 g/dl (12.0-15.5); LYMPH # 2.6 10^3/uL (1.5-5.0); LYMPH % 35.8 % (24.0-44.0); MEAN CORPUSCULAR HEMOGLOBIN 26.5 pg (27.0-33.0); MEAN CORPUSCULAR HGB CONC 31.2 g/dl (32.0-36.5); MONO # 0.5 10^3/uL (0.0-0.8); MONO % 6.4 % (0.0-5.0); NEUTROPHILS # 4.1 10^3/uL (1.5-8.5); NEUTROPHILS % 55.6 % (36.0-66.0); PLATELET COUNT, AUTOMATED 172 10^3/uL (150-450); RED BLOOD COUNT 5.05 10^6/uL (4.00-5.40); WHITE BLOOD COUNT 7.4 10^3/uL (4.0-10.0)
[2020-03-14 22:08] LABS: ALT/SGPT 28 U/L (12-78); BILIRUBIN,DIRECT < 0.1 MG/DL (0.0-0.2); BILIRUBIN,TOTAL 0.3 MG/DL (0.2-1.0); BLOOD UREA NITROGEN 14 MG/DL (7-18); CALCIUM LEVEL 9.2 MG/DL (8.5-10.1); CARBON DIOXIDE LEVEL 27 MEQ/L (21-32); CHLORIDE LEVEL 109 MEQ/L (98-107); CREATININE FOR GFR 0.79 MG/DL (0.55-1.30); GLOMERULAR FILTRATION RATE > 60.0 (>60); GLUCOSE, FASTING 92 MG/DL (70-100); LIPASE 105 U/L (73-393); SODIUM LEVEL 141 MEQ/L (136-145); TOTAL PROTEIN 7.8 GM/DL (6.4-8.2)
[2020-03-14 22:25] LABS: HCG, SERUM QUALITATIVE NEGATIVE (NEGATIVE)
[2020-03-14] MEDS ORDERED: KETOROLAC 30 MG/ML 1ML VIAL IV ONE (22:30)
[2020-03-14] MEDS ORDERED: NS 1,000 ML IV ONE (22:30)
--- OUTSIDE RECORDS SUMMARY | 2020-03-14 23:03 | CCD ---
Author Author [facility] Organization [facility] Address Unknown Phone Unavailable Care Team Providers Care Outpatient Scheduler Name Role Phone MAX, E TAPAN DO [...] is protected by Article 27-F of the [facility] Public Health law. If you continue you may have access to information: Regarding HIV / AIDS; Provided by facilities licensed or operated by the [facility] Office of Mental Health; or Provided by the [facility] Office for People With Developmental Disabilities. If such information is present, then the following [facility] mandated warning applies: This information has been [...] law may result in a fine or alf sentence or both. A general authorization for the release of medical or other information is NOT sufficient authorization for further disc losure. Encounters Encounter Providers Location Date Indications Data Source(s ) Outpatient Attender: NIC SADLER MD Main office [facility] 11/20/2019 02:30:00 [facility] [place] Outpatient Attender: ANDRY EAGLE 07:58:00 AM EDT - 11/17/2019 08:58:00 AM EDT [facility] Patient discharged. Outpatient Attender: MIRACLE SERAFINGM LOZOYA 2019 08:15:54 AM EDT - 11/14/2019 05:30:00 AM EDT [facility] Patient discharged. Outpatient Attender: ANDRY EAGLE 03:53:39 PM EDT - 11/07/2019 02:24:00 PM EDT [facility] Patient discharged. Outpatient Attender: MIRACLE SERAFINGM LOZOYA 2019 01:15:00 PM EDT - 10/12/2019 01:15:00 PM EDT [facility] Outpatient Attender: TAPAN Nieves/Jose/Maddie forte 09/25/2019 03:00:00 PM EDT [facility] ([facility], ) Outpatient Attender: Allan Kim RPA-C 0 09/20/2019 12:07:52 PM EDT - 10/26/2019 10:39:00 AM EDT [facility] Patient discharged. Outpatient Attender: Allan Kim RPA-C 0 08/04/2019 11:41:43 AM EDT - 08/05/2019 06:00:00 AM EDT [facility] Patient discharged. Emergency Attender: BILL HOWARD MD 03:39:00 PM [facility] - 04/15/2019 05:17:00 PM [facility] Patient discharged. Outpatient Attender: LENKA MOORE 09:12:00 AM [facility] - 03/03/2019 10:12:00 AM [facility] Medications Medication Brand Name Start Date Product Form Dose Route Admi nistrative Instructions Pharmacy Instructions Status Indications Reaction Description Data Source(s) zonisamide 25 MG Oral Capsule Zonisamide 11/20/2019 12:00:00 AM EDT ORAL active [facility] ([facility], ) zonisamide 50 MG Oral Capsule Zonisamide 11/20/2019 12:00:00 AM EDT ORAL active [facility] ([facility], ) Insurance Providers Payer name Policy type / Coverage type Policy ID Covered democrat ID Covered democrat's relationship to mcmullen Policy Mcmullen Plan Information [facility] [employer] [id number] SP [id number] [facility] HU[facility] - O/P [id number] 18 [id number] [facility] [place] [id number] 18 [id number] [facility] [employer] [id number] SP [id number] SELF PAY ONLY SP U [id number] Self [id number] Self [id number] Problems, Conditions, and Diagnoses Code Display Name Description Problem Type Effective Dates Data Source(s) R519 Headache, unspecified Headache, unspecified Diagnosis 11/17/2019 07:58:00 AM EDT [facility] G4733 Obstructive sleep apnea (adult) (pediatr ic) Obstructive sleep apnea (adult) (pediatric) Diagnosis 11/13/2019 08:00:00 PM EDT [facility] R99 Ill-defined and unknown cause of mortali ty Ill-defined and unknown cause of mortality Diagnosis 11/07/2019 02:24:00 PM EDT [facility] Q68053 Bunion of left foot Bunion of left foot Diagnosis 0 10/12/2019 01:15:00 PM EDT [facility] G4489 Other headache syndrome Other headache syndrome Diagno sis 08/04/2019 08:30:00 PM EDT [facility] G4761 Periodic limb movement disorder Periodic limb movement disorder Diagnosis 08/04/2019 08:30:00 PM EDT [facility] R400 Somnolence Somnolence Diagnosis 08/04/2019 08:30:00 PM ED T [facility] R0683 Snoring Snoring Diagnosis 08/04/2019 08:30:[address] 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, left hip Diagnosis 03/03/2019 09:12:00 AM [facility] Surgeries/Procedures Procedure Description Date Indications Data Source(s) Magnetic Resonance Angiogtaphy Head W/O Contrast Material(S) 12/18/2019 12:00:00 AM EST [facility] ([facility], ) Magnetic Resonance Angiogtaphy Head W/O Contrast Material(S) 12/18/2019 12:00:00 AM EST [facility] ([facility], ) Magnetic Resonance Angiography Neck W/O Contrast Materials 12/18/2019 12:00:00 AM EST [facility] ([facility], ) Magnetic Resonance Angiography Neck W/O Contrast Materials 12/18/2019 12:00:00 AM EST [facility] ([facility], ) MRI SPINAL CANAL CERVICAL W/O CONTRAST MATRL 0 12:00:00 AM EST [facility] ([facility], ) MRI SPINAL CANAL CERVICAL W/O CONTRAST MATRL 0 12:00:00 AM EST [facility] ([facility], ) NON-INVASIVE PHYSIOLOGIC STUDY EXTREMITY 3 LEVLS 11/28 12:00:00 AM EDT [facility] ([facility], ) NON-INVASIVE PHYSIOLOGIC STUDY EXTREMITY 3 LEVLS 11/28 12:00:00 AM EDT [facility] ([facility], ) NON-INVASIVE PHYSIOLOGIC STUDY EXTREMITY 3 LEVLS 11/28 12:00:00 AM EDT [facility] ([facility], ) NON-INVASIVE PHYSIOLOGIC STUDY EXTREMITY 3 LEVLS 11/28 12:00:00 AM EDT [facility] ([facility], ) TSTG ANS FUNCJ CARDIOVAGAL INNERVAJ PARASYMP 0 12:00:00 AM EDT [facility] ([facility], ) TSTG ANS FUNCJ CARDIOVAGAL INNERVAJ PARASYMP 0 12:00:00 AM EDT [facility] ([facility], ) TESTING AUTONOMIC NERVOUS SYSTEM FUNCTION 11/29/2019 1 2:00:00 AM EDT [facility] ([facility], ) TESTING AUTONOMIC NERVOUS SYSTEM FUNCTION 11/29/2019 1 2:00:00 AM EDT [facility] ([facility], ) Results ID Date Data Source [id number] 11/17/2019 12:39:00 [place] [address] PHONE: [phone] FAX: [phone] Name .................. : FRANCIS Frias Acct Number.................. : [id number] ROOM. ................. : Number ................... : [id number] Stay type ............. : O/P Discharge Date......... ... : 11/17/19 Admit Date .... ..... : 11/17/19 Admit Phys .................... : SHAGUFTA BACA Date of ....... : 1985 Family Phys ................... : UNKNOWN CO Phone .................. : [phone] Age ................................ : 33 Film# .................. .:[id number] Sex ................................. : F Unsigned transcriptions are preliminary reports and do not represent a medical or legal document MRI BRAIN W/O CONTRAST [id number] COMPLETE:11/17/19 08:01 62625 (REASON FOR PROCEDURE HEADACHES MRI OF THE [...] Copy for: SHAGUFTA WILDE Copy for: Lorrie [facility] Page 1 of 1 Name Value Range Interpretation Code Description Data Sindi rce(s) Supporting Document(s) ID Date Data Source [id number] 05/05/2019 05:44:00 PM EDT [facility] ([facility]) Name Value Range Interpretation Code Description Data Sindi rce(s) Supporting Document(s) Glucose, Fasting 97 mg/dL 70-100 Normal (applies to non-numeric results) [facility] ([facility]) Glomerular Filtration Rate Laboratory test result Normal (applies to non- numeric results) [facility]) <content>Units are mL/min/1.73 m2</content>
<content></content>
<content>Chronic Kidney Disease Staging per NKF:</content>
<content></content>
<content>Stage I & II GFR >=60 Normal to Mildly Decreased</content>
<content>Stage III GFR 30-59 Moderately Decreased</content>
<content>Stage IV GFR 15-29 Severely Decreased</content>
<content>Stage V GFR <15 Very Little GFR Left</content>
<content>ESRD GFR <15 on MACHINIST CLASS B</content>
<content></content> Blood Urea Nitrogen 10 mg/dL 7-18 Normal (applies to non-nume karly results) [facility] ([facility]) Creatinine For GFR 0.82 mg/dL 0.55-1.30 Normal (applies to non -numeric results) [facility] ([facility]) Chloride Level 108 meq/L 98-107 Above high normal [facility] ([facility]) Sodium Level 139 meq/L 136-145 Normal (applies to non-numeric res ults) [facility]) Potassium Serum 3.7 meq/L 3.5-5.1 Normal (applies to non-numeric results) [facility]) Carbon Dioxide Level 28 meq/L 21-32 Normal (applies to non-num yared results) [facility] ([facility]) Anion Gap 3 meq/L 8-16 Below low normal [facility] ( [facility]) Calcium Level 8.8 mg/dL 8.5-10.1 Normal (applies to non-numeric re sults) [facility] ([facility]) ID Date Data Source [id number] 05/05/2019 05:44:00 PM EDT [facility] ([facility]) Name Value Range Interpretation Code Description Data Sindi rce(s) Supporting Document(s) White Blood Count 14.1 10 4.0-10.0 Above high normal [facility] ([facility]) Red Blood Count 4.14 10 4.00-5.40 Normal (applies to non-numeric results) [facility] ([facility]) Hemoglobin 10.0 g/dL 12.0-15.5 Below low normal [facility] ( [facility]) Hematocrit 32.9 % 36.0-47.0 Below low normal [facility] ( [facility]) Mean Corpuscular Volume 79.5 fl 80.0-96.0 Below low normal [facility] ([facility]) Mean Corpuscular Hemoglobin 24.2 pg 27.0-33.0 Below low normal [facility] ([facility]) Mean Corpuscular HGB Conc 30.4 g/dL 32.0-36.5 Below low normal [facility] Platelet Count, Automated 221 10 150-450 Normal (applies to non-numeric results) [facility] ([facility]) Red Cell Distribution Width 16.5 % 11.5-14.5 Above high normal [facility] ([facility]) Nucleated Red Blood Cell % 0.0 % 0-0 Normal (applies to n on-numeric results) [facility] ([facility]) ID Date Data Source [id number] 04/17/2019 09:09:00 [place] [address] PHONE: [phone] FAX: [phone] Name .................. : FRANCIS Frias Acct Number.................. : [id number] ROOM. ................. : TR-04 Number ................... : [id number] Stay type ............. : E/R Discharge Date......... ... : 04/15/19 Admit Date ... ...... : 04/15/19 Admit Phys .................... : LEE SOARES Date of ....... : 1985 Family Phys ................... : UNKNOWN CO Phone .................. : [phone] Age ................................ : 33 Film# .................. .:[id number] Sex ................................. : F Unsigned transcriptions are preliminary reports and do not represent a medical or legal document FOOT COMPLETE-3 OR MORE [facility] [id number] COMPLETE:04/15/19 17:37 [facility] [address]897 Reason(s): Pain LEFT FOOT SERIES: FINDINGS: Some [...] rce(s) Supporting Document(s) ID Date Data Source [id number] 04/15/2019 03:39:00 PM EST [facility] 1 OrderSheet [facility] Emergency Department [address] [place] [address] Phone #: [phone]- [phone] 04/15/2019 15:29 Patient: LORRAINE BLANCO Sex: F : 1985 Age: 33yWEIGHT:81.6 kg (S) HEIGHT:66 inches (S) BMI:29.0ALLERGIE S: No Known Drug AllergyCHIEF COMPLAINT: pain, swelling, pain, swelling, altered sensation, Lt, feet, in:LAB ORDERSOrder Description Priority Entered Acknowledged InitialedDIAGNOSTIC STUDY ORDERSOrder Description Priority Entered Acknowledged InitialedFoot Complete Left STAT 15:49 04/15/2019 Ack'd: 15:52 15:55 [place](Oxygen?(No)) Gini Daly ED, Jesse [facility] PA; R.N. [...] rce(s) Supporting Document(s) ID Date Data Source [id number] 04/15/2019 03:39:00 PM [facility] 1 Medication Reconciliation Report [facility] Emergency Department [address] [place] [address] Phone #: ext- [phone] 04/15/2019 15:29 Patient: [...] rce(s) Supporting Document(s) ID Date Data Source [id number] 04/15/2019 03:39:00 PM [facility] 1 Medication Administration Record [facility] Emergency Department [address] [place] [address] Phone #: ext- [phone] 04/15/2019 15:29 Patient: LORRAINE BLANCO Sex: F : 1985 Age: 33yWeight: 81.6 kgHeight/Length: 66 inBMI: 29ALLERGIES: No Known Drug Allergy Date/Time Medication Administered Medication OrderedGiven TYLENOL [PO] (APAP) Tylenol PO 1000 mg15:52 04/15/2019 Dose: 1000 mg Tablets Gini Henderson R.N. Name Value Range Interpretation Code Description Data Sindi rce(s) Supporting Document(s) ID Date Data Source [id number] 04/15/2019 03:39:00 PM [facility] 1 General Instructions [facility] Emergency Department [address] [place] [address] Phone #: ext- [phone] 04/15/2019 15:29 Patient: [...] rce(s) Supporting Document(s) ID Date Data Source [id number] 04/15/2019 03:39:00 PM [facility] 1 Clinical Report - Nurses [facility] Emergency Department [address] [place] [address] Phone #: [phone] 04/15/2019 15:29 Patient: LORRAINE BLANCO Sex: F [...] her boot she wears or a bunion).Treatment BODY MASKER:None.SEPSIS SCREEN: NEGATIVE heart rate greater than 90.JOSE [...] tubal ligation. 2 Clinical Report - Nurses [facility] Emergency Department [address] [place] [address] Phone #: ext- [phone] 04/15/2019 15:29 Patient: [...] Duque R.N. 3 Clinical Report - Nurses [facility] Emergency Department [address] [place] [address] Phone #: ext- [phone] 04/15/2019 15:29 Patient: LORRAINE BLANCO Sex: F [...] Patient verbalized understanding. Written instructions provided in Guinean. The patient was discharged by the physician rn first assistant. She was discharged home and unaccompanied [...] rce(s) Supporting Document(s) ID Date Data Source [id number] 04/15/2019 03:39:00 PM EST [facility] 1 Clinical Report - Physicians/Mid Levels [facility] Emergency Department [address] [place] [address] Phone #: ext- [phone] 04/15/2019 15:29 Patient: [...] consumes wine occasionally. 2 Clinical Report - Physicians/[facility] Emergency Department [address] [place] [address] Phone #: ext- [phone] 04/15/2019 15:29 Patient: LORRAINE BLANCO Sex: F [...] pads). 3 Clinical Report - Physicians/Mid Levels [facility] Emergency Department [address] [place] [address] Phone #: ext- [phone] 04/15/2019 15:29 Patient: LORRAINE BLANCO Sex: F : 1985 Age: 33y Follow-up: Follow up with your doctor Wednesday. Reason for referral: evaluation, treatment and refer to Podiatry. Summary of care provided to patient. Understanding of the discharge instructions verbalized by patient.(Electronically signed by DEIRDRE Monge 04/15/2019 19:48) Name Value Range Interpretation Code Description Data Sindi rce(s) Supporting Document(s) ID Date Data Source [id number] 03/06/2019 09:48:00 AM EST [facility] [address] [place] [address] PHONE: [phone] FAX: [phone] Name .................. : FRANCIS Frias Acct Number.................. : [id number] ROOM. ................. : MR Number ................... : [id number] Stay type ............. : O/P Discharge Date......... ... : 03/03/19 Admit Date ......... : 03/03/19 Admit Phys .................... : OSCAR TRAN Date of ....... : 1985 Family Phys ................... : UNKNOWN CO Phone .................. : [phone] Age ................................ : 33 Film# .................. .:[id number] Sex ................................. : F Unsigned transcriptions are preliminary reports and do not represent a medical or legal document MRI LOWER EXT ANY JT W CONT [id number] COMPLETE:03/03/19 10:42 [facility] 81176 (REASON FOR PROCESS: PAIN MRI OF THE [...] Date: Copy for: OSCAR OG Copy for: [address] [place] [address] REC Page 1 of 1 Name Value Range Interpretation Code Description Data Sindi rce(s) Supporting Document(s) ID Date Data Source [id number] 03/03/2019 01:29:00 PM [facility] [address] [place] [address] PHONE: [phone] FAX: [phone] Name .................. : FRANCIS LORRAINE Altagracia Acct Number.................. : [id number] ROOM. ................. : MR Number ................... : [id number] Stay type ............. : O/P Discharge Date......... ... : 03/03/19 Admit Date ......... : 03/03/19 Admit Phys .................... : OSCAR TRAN Date of ....... : 1985 Family Phys ................... : UNKNOWN CO Phone .................. : [phone] Age ................................ : 33 Film# .................. .:[id number] Sex ................................. : F Unsigned transcriptions are preliminary reports and do not represent a medical or legal document INJECTION FOR HIP ARTHROGRAM [id number] COMPLETE:03/03/19 09:20 12861 REASON FOR EXAM: PAIN FLUOROSCOPIC EXAMINATION OF [...] 03/03/19 13:29, MRA Page 1 of 2 [place] [address] PHONE: [phone] FAX: [phone] Name .................. : FRANCIS Frias Acct Number.................. : [id number] ROOM. ................. : MR Number ................... : [id number] Stay type ............. : O/P Discharge Date......... ... : 03/03/19 Admit Date ......... : 03/03/19 Admit Phys .................... : OSCAR TRAN Date of ....... : 1985 Family Phys ................... : UNKNOWN CO Phone .................. : [phone] Age ................................ : 33 Film# .................. .:[id number] Sex ................................. : F Unsigned transcriptions are preliminary reports and do not represent a medical or legal document INJECTION FOR HIP ARTHROGRAM [id number] COMPLETE:03/03/19 09:20 44227 REASON FOR EXAM: PAIN Transcribe Initials: RANDY , Transcribe Date: 03/03/19 10:03, Dictation Date: Copy for: OSCAR OG Copy for: 710 MED REC Page 2 of 2 Name Value Range Interpretation Code Description Data Sindi rce(s) Supporting Document(s) Procedure Vital Signs ID Date Data Source UNK Name Value Range Interpretation Code Description Data Source(s) Body weight 84.937 kg 84.937 kg [facility] ([facility]) Body mass index (BMI) [Ratio] 30.2 kg/m2 30.2 k g/m2 [facility] ([facility]) Body weight 187.25 [lb_av] 187.25 [lb_av] [facility] ([facility]) Body height 66 [in_i] 66 [in_i] [facility] ([facility]) 5'6" Diastolic blood pressure 76 mm[Hg] 76 mm[Hg] [facility] ([facility]) Systolic blood pressure 116 mm[Hg] 116 mm[Hg] M [facility] ([facility]) Body weight 87.998 kg 87.998 kg [facility] ([facility]) Body mass index (BMI) [Ratio] 31.3 kg/m2 31.3 k g/m2 [facility] ([facility]) Body weight 194.00 [lb_av] 194.00 [lb_av] [facility] ([facility], ) Body height 66 [in_i] 66 [in_i] [facility] ([facility], ) 5'6" Body temperature 98.4 [degF] 98.4 [degF] [facility] ([facility]) Respiratory rate 16 /min 16 /min [facility] ( [facility]) Heart rate 76 /min 76 /min [facility] ([facility], ) Diastolic blood pressure 82 mm[Hg] 82 mm[Hg] [facility] ([facility]) Systolic blood pressure 118 mm[Hg] 118 mm[Hg] [facility] ([facility], )
--- NOTE | 2020-03-14 23:16 | REPVR ---
PROCEDURE INFORMATION: Exam: US Pelvis Complete, Transabdominal and US Pelvis, Transvaginal Exam date and time: 03/14/2020 10:47 PM Age: 34 years old Clinical indication: Pelvic pain; Prior surgery; Surgery date: 6+ months; Surgery type: S/P endometrial ablation in 04/2019; Additional info: Severe pelvic pain, prior salpingectomy TECHNIQUE: Imaging protocol: Real-time transabdominal and transvaginal pelvic ultrasound (complete) with image documentation. Transvaginal imaging was used for better evaluation of the endometrium, adnexa, and/or cervix. COMPARISON: 1. US PELVIC NON-OB COMPLETE 02/15/2020 7:42 PM 2. Right ovary Right ovary measures 3.3 x 2.0 x 2.7 cm. FINDINGS: Uterus/cervix: Uterus measures 9.7 x 4.7 x 5.9 cm. Endometrial stripe measures 2.6 mm in thickness. Endometrial canal measures up tor 1.6 cm in diameter. Heterogeneous hypoechoic fluid in the endometrial canal. No uterine masses. Right adnexa: Right ovary measures 3.3 x 2.0 x 2.7 cm. No masses. Normal vascular flow. Dominant follicle in the right ovary measuring 10 mm. Left adnexa: Left ovary measures 3.3 x 1.3 x 2.6 cm. No masses. Normal vascular flow. Intraperitoneal space: Trace fluid in the posterior cul-de-sac. Urinary bladder: Bladder is decompressed. IMPRESSION: 1. Complex fluid in the endometrial canal. There is increased fluid in the fundus. However, findings are otherwise similar to the prior study. 2. Unremarkable ovaries. Electronically signed by: Khadijah Paul On 03/14/2020 23:16:47 PM
[2020-03-14] MEDS ORDERED: MORPHINE 4 MG/ML 1ML VIAL/SYRINGE (J2270) IV ONE (23:30)
[2020-03-14] MEDS ORDERED: ONDANSETRON 4MG/2ML VIAL IV ONE (23:30)
[2020-03-15] MEDS ORDERED: HYDR-3715 PO (00:37)
[2020-03-15 00:45] VITALS: BP 118/74
== END 2020-03-15 00:47 | disposition home or self-care (01) ==
LOC: M ED 18:32
DX: N80.0 Endometriosis of uterus (principal); R10.2 Pelvic and perineal pain; R11.0 Nausea; R51.9 Headache, unspecified; G47.30 Sleep apnea, unspecified; F17.200 Nicotine dependence, unspecified, uncomplicated; Z79.899 Other long term (current) drug therapy
CPT/HCPCS: 76830; 76856; 80048; 80076; 83690; 84703; 85025; 93976; 96361; 96374; 96375; 99284; J1885; J2270; J2405

== ENCOUNTER 2020-04-01 17:05 | Emergency (ER) | payer OTHER ==
[~2020-04-01] VITALS: Ht 167.6 cm; Wt 86.4 kg
[~2020-04-01 17:05] MED LIST changes: +ACET-897 PO; +HYDR-3715 PO
--- OUTSIDE RECORDS SUMMARY | 2020-04-01 17:10 | CCD ---
Author Author [facility] Organization [facility] Address Unknown Phone Unavailable Care Team Providers Care Prosthodontist Name Role Phone MAX, E TAPAN DO [...] E TAPAN DO Unavailable Unavailable MAX, E TPAAN DO Unavailable Unavailable MAX, [...] is protected by Article 27-F of the [facility] Public Health law. If you continue you may have access to information: Regarding HIV / AIDS; Provided by facilities licensed or operated by the [facility] Office of Mental Health; or Provided by the [facility] Office for People With Developmental Disabilities. If such information is present, then the following [facility] mandated warning applies: This information has [...] law may result in a fine or usp sentence or both. A general authorization for the release of medical or other information is NOT sufficient authorization for further disc losure. Encounters Encounter Providers Location Date Indications Data Source(s ) Outpatient Attender: NIC SADLER MD Main office [facility] 11/20/2019 02:30:00 [facility] [place] Outpatient Attender: ANDRY EAGLE 07:58:00 AM EDT - 11/17/2019 08:58:00 AM EDT [facility] Patient discharged. Outpatient Attender: MIRACLE SERAFINGM LOZOYA 2019 08:15:54 AM EDT - 11/14/2019 05:30:00 AM EDT [facility] Patient discharged. Outpatient Attender: ANDRY EAGLE 03:53:39 PM EDT - 11/07/2019 02:24:00 PM EDT [facility] Patient discharged. Outpatient Attender: MIRACLE SERAFINGM LOZOYA 2019 01:15:00 PM EDT - 10/12/2019 01:15:00 PM EDT [facility] Outpatient Attender: TAPAN Nieves/Jose/Maddie forte 09/25/2019 03:00:00 PM EDT [facility] ([facility], ) Outpatient Attender: Allan Kim RPA-C 0 09/20/2019 12:07:52 PM EDT - 10/26/2019 10:39:00 AM EDT [facility] Patient discharged. Outpatient Attender: Allan Kim RPA-C 0 08/04/2019 11:41:43 AM EDT - 08/05/2019 06:00:00 AM EDT [facility] Patient discharged. Emergency Attender: BILL HOWARD MD 03:39:00 PM [facility] - 04/15/2019 05:17:00 PM [facility] Patient discharged. Outpatient Attender: LENKA MOORE 09:12:00 AM [facility] - 03/03/2019 10:12:00 AM [facility] Medications Medication Brand Name Start Date Product Form Dose Route Admi nistrative Instructions Pharmacy Instructions Status Indications Reaction Description Data Source(s) zonisamide 25 MG Oral Capsule Zonisamide 11/20/2019 12:00:00 AM EDT ORAL active [facility] ([facility], ) zonisamide 50 MG Oral Capsule Zonisamide 11/20/2019 12:00:00 AM EDT ORAL active [facility] ([facility], ) Insurance Providers Payer name Policy type / Coverage type Policy ID Covered republican ID Covered republican's relationship to mcmullen Policy Mcmullen Plan Information [facility] ACTIVE DUTY [id number] SP [id number] [facility] HUMANA - O/P [id number] 18 [id number] [facility] [place] [id number] 18 [id number] [facility] ACTIVE DUTY [id number] SP [id number] SELF PAY ONLY SP U [id number] Self [id number] Self [id number] Problems, Conditions, and Diagnoses Code Display Name Description Problem Type Effective Dates Data Source(s) R519 Headache, unspecified Headache, unspecified Diagnosis 11/17/2019 07:58:00 AM EDT [facility] G4733 Obstructive sleep apnea (adult) (pediatr ic) Obstructive sleep apnea (adult) (pediatric) Diagnosis 11/13/2019 08:00:00 PM EDT [facility] R99 Ill-defined and unknown cause of mortali ty Ill-defined and unknown cause of mortality Diagnosis 11/07/2019 02:24:00 PM EDT [facility] K32300 Bunion of left foot Bunion of left foot Diagnosis 0 10/12/2019 01:15:00 PM EDT [facility] G4489 Other headache syndrome Other headache syndrome Diagno sis 08/04/2019 08:30:00 PM EDT [facility] G4761 Periodic limb movement disorder Periodic limb movement disorder Diagnosis 08/04/2019 08:30:00 PM EDT [facility] R400 Somnolence Somnolence Diagnosis 08/04/2019 08:30:00 PM ED T [facility] R0683 Snoring Snoring Diagnosis 08/04/2019 08:30:00 PM ED [facility] B93209 Pain in left foot Pain in left foot Diagnosis 04/15/2019 03:39:00 PM [facility] 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, 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, left hip Diagnosis 03/03/2019 09:12:00 AM [facility] Surgeries/Procedures Procedure Description Date Indications Data Source(s) Magnetic Resonance Angiogtaphy Head W/O Contrast Material(S) 12/18/2019 12:00:00 AM EST [facility] ([facility], ) Magnetic Resonance Angiogtaphy Head W/O Contrast Material(S) 12/18/2019 12:00:00 AM EST [facility] ([facility], ) Magnetic Resonance Angiography Neck W/O Contrast Materials 12/18/2019 12:00:00 AM EST [facility] ([facility], ) Magnetic Resonance Angiography Neck W/O Contrast Materials 12/18/2019 12:00:00 AM EST [facility] ([facility], ) MRI SPINAL CANAL CERVICAL W/O CONTRAST MATRL 0 12:00:00 AM EST [facility] ([facility], ) MRI SPINAL CANAL CERVICAL W/O CONTRAST MATRL 0 12:00:00 AM EST [facility] ([facility], ) NON-INVASIVE PHYSIOLOGIC STUDY EXTREMITY 3 LEVLS 11/28 12:00:00 AM EDT [facility] ([facility], ) NON-INVASIVE PHYSIOLOGIC STUDY EXTREMITY 3 LEVLS 11/28 12:00:00 AM EDT [facility] ([facility], ) NON-INVASIVE PHYSIOLOGIC STUDY EXTREMITY 3 LEVLS 11/28 12:00:00 AM EDT [facility] ([facility], ) NON-INVASIVE PHYSIOLOGIC STUDY EXTREMITY 3 LEVLS 11/28 12:00:00 AM EDT [facility] ([facility], ) TSTG ANS FUNCJ CARDIOVAGAL INNERVAJ PARASYMP 0 12:00:00 AM EDT [facility] ([facility], ) TSTG ANS FUNCJ CARDIOVAGAL INNERVAJ PARASYMP 0 12:00:00 AM EDT [facility] ([facility], ) TESTING AUTONOMIC NERVOUS SYSTEM FUNCTION 11/29/2019 1 2:00:00 AM EDT [facility] ([facility], ) TESTING AUTONOMIC NERVOUS SYSTEM FUNCTION 11/29/2019 1 2:00:00 AM EDT [facility] ([facility], ) Results ID Date Data Source [id number] 11/17/2019 12:39:00 [place] [address] PHONE: [phone] FAX: [phone] Name .................. : FRANCIS Frias Acct Number.................. : [id number] ROOM. ................. : Number ................... : [id number] Stay type ............. : O/P Discharge Date......... ... : 11/17/19 Admit Date .... ..... : 11/17/19 Admit Phys .................... : SHAGUFTA BACA Date of ....... : 1985 Family Phys ................... : UNKNOWN CO Phone .................. : [phone] Age ................................ : 33 Film# .................. .:[id number] Sex ................................. : F Unsigned transcriptions are preliminary reports and do not represent a medical or legal document MRI BRAIN W/O CONTRAST [id number] COMPLETE:11/17/19 08:01 20541 (REASON FOR PROCEDURE HEADACHES MRI OF THE [...] Copy for: SHAGUFTA WILDE Copy for: [facility] Page 1 of 1 Name Value Range Interpretation Code Description Data Sindi rce(s) Supporting Document(s) ID Date Data Source [id number] 05/05/2019 05:44:00 PM EDT [facility] ([facility]) Name Value Range Interpretation Code Description Data Sindi rce(s) Supporting Document(s) Glucose, Fasting 97 mg/dL 70-100 Normal (applies to non-numeric results) [facility] ([facility]) Glomerular Filtration Rate Laboratory test result Normal (applies to non- numeric results) [facility]) <content>Units are mL/min/1.73 m2</content>
<content></content>
<content>Chronic Kidney Disease Staging per NKF:</content>
<content></content>
<content>Stage I & II GFR >=60 Normal to Mildly Decreased</content>
<content>Stage III GFR 30-59 Moderately Decreased</content>
<content>Stage IV GFR 15-29 Severely Decreased</content>
<content>Stage V GFR <15 Very Little GFR Left</content>
<content>ESRD GFR <15 on GOVERNMENT CONTRACTS MANAGER</content>
<content></content> Blood Urea Nitrogen 10 mg/dL 7-18 Normal (applies to non-nume karly results) [facility] ([facility]) Creatinine For GFR 0.82 mg/dL 0.55-1.30 Normal (applies to non -numeric results) [facility] ([facility]) Chloride Level 108 meq/L 98-107 Above high normal [facility] ([facility]) Sodium Level 139 meq/L 136-145 Normal (applies to non-numeric res ults) [facility]) Potassium Serum 3.7 meq/L 3.5-5.1 Normal (applies to non-numeric results) [facility]) Carbon Dioxide Level 28 meq/L 21-32 Normal (applies to non-num yared results) [facility] ([facility]) Anion Gap 3 meq/L 8-16 Below low normal [facility] ( [facility]) Calcium Level 8.8 mg/dL 8.5-10.1 Normal (applies to non-numeric re sults) [facility] ([facility]) ID Date Data Source [id number] 05/05/2019 05:44:00 PM EDT [facility] ([facility]) Name Value Range Interpretation Code Description Data Sindi rce(s) Supporting Document(s) White Blood Count 14.1 10 4.0-10.0 Above high normal [facility] ([facility]) Red Blood Count 4.14 10 4.00-5.40 Normal (applies to non-numeric results) [facility] ([facility]) Hemoglobin 10.0 g/dL 12.0-15.5 Below low normal [facility] ( [facility]) Hematocrit 32.9 % 36.0-47.0 Below low normal [facility] ( [facility]) Mean Corpuscular Volume 79.5 fl 80.0-96.0 Below low normal [facility] ([facility]) Mean Corpuscular Hemoglobin 24.2 pg 27.0-33.0 Below low normal [facility] ([facility]) Mean Corpuscular HGB Conc 30.4 g/dL 32.0-36.5 Below low normal [facility] Platelet Count, Automated 221 10 150-450 Normal (applies to non-numeric results) [facility] ([facility]) Red Cell Distribution Width 16.5 % 11.5-14.5 Above high normal [facility] ([facility]) Nucleated Red Blood Cell % 0.0 % 0-0 Normal (applies to n on-numeric results) [facility] ([facility]) ID Date Data Source [id number] 04/17/2019 09:09:00 [place] [address] PHONE: [phone] FAX: [phone] Name .................. : FRANCIS Frias Acct Number.................. : [id number] ROOM. ................. : TR-04 Number ................... : [id number] Stay type ............. : E/R Discharge Date......... ... : 04/15/19 Admit Date ... ...... : 04/15/19 Admit Phys .................... : LEE SOARES Date of ....... : 1985 Family Phys ................... : UNKNOWN CO Phone .................. : [phone] Age ................................ : 33 Film# .................. .:[id number] Sex ................................. : F Unsigned transcriptions are preliminary reports and do not represent a medical or legal document FOOT COMPLETE-3 OR MORE [facility] [address] COMPLETE:04/15/19 17:37 [facility] [id number] Reason(s): Pain LEFT FOOT SERIES: FINDINGS: Some [...] rce(s) Supporting Document(s) ID Date Data Source [id number] 04/15/2019 03:39:00 PM EST [facility] 1 OrderSheet [facility] Emergency Department [address] [place] [address] Phone #: [phone] 04/15/2019 15:29 Patient: LORRAINE BLANCO Sex: F : 1985 Age: 33yWEIGHT:81.6 kg (S) HEIGHT:66 inches (S) BMI:29.0ALLERGIE S: No Known Drug AllergyCHIEF COMPLAINT: pain, swelling, pain, swelling, altered sensation, Lt, feet, in:LAB ORDERSOrder Description Priority Entered Acknowledged InitialedDIAGNOSTIC STUDY ORDERSOrder Description Priority Entered Acknowledged InitialedFoot Complete Left STAT 15:49 04/15/2019 Ack'd: 15:52 15:55 Etoile(Oxygen?(No)) Gini Daly ED, Jesse ER PA; R.N. [...] rce(s) Supporting Document(s) ID Date Data Source [id number] 04/15/2019 03:39:00 PM [facility] 1 Medication Reconciliation Report [facility] Emergency Department [address] [place] [address] Phone #: ext- [phone] 04/15/2019 15:29 Patient: [...] rce(s) Supporting Document(s) ID Date Data Source [id number] 04/15/2019 03:39:00 PM [facility] 1 Medication Administration Record [facility] Emergency Department [address] [place] [address] Phone #: ext- [phone] 04/15/2019 15:29 Patient: LORRAINE BLANCO Sex: F : 1985 Age: 33yWeight: 81.6 kgHeight/Length: 66 inBMI: 29ALLERGIES: No Known Drug Allergy Date/Time Medication Administered Medication OrderedGiven TYLENOL [PO] (APAP) Tylenol PO 1000 mg15:52 04/15/2019 Dose: 1000 mg Tablets Gini Henderson R.N. Name Value Range Interpretation Code Description Data Sindi rce(s) Supporting Document(s) ID Date Data Source [id number] 04/15/2019 03:39:00 PM [facility] 1 General Instructions [facility] Emergency Department [address] [place] [address] Phone #: ext- [phone] 04/15/2019 15:29 Patient: [...] rce(s) Supporting Document(s) ID Date Data Source [id number] 04/15/2019 03:39:00 PM [facility] 1 Clinical Report - Nurses [facility] Emergency Department [address] [place] [address] Phone #: [phone] 04/15/2019 15:29 Patient: LORRAINE BLANCO Sex: F [...] her boot she wears or a bunion).Treatment 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 2 Clinical Report - Nurses [facility] Emergency Department [address] [place] [address] Phone #: ext- [phone] 04/15/2019 15:29 Patient: [...] Duque R.N. 3 Clinical Report - Nurses [facility] Emergency Department [address] [place] [address] Phone #: ext- [phone] 04/15/2019 15:29 Patient: LORRAINE BLANCO Sex: F [...] Patient verbalized understanding. Written instructions provided in Georgian. The patient was discharged by the physician lead assistant manager. She was discharged home and unaccompanied at [...] rce(s) Supporting Document(s) ID Date Data Source [id number] 04/15/2019 03:39:00 PM EST [facility] 1 Clinical Report - Physicians/Mid Levels [facility] Emergency Department [address] [place] [address] Phone #: ext- [phone] 04/15/2019 15:29 Patient: [...] consumes wine occasionally. 2 Clinical Report - Physicians/[facility] Emergency Department [address] [place] [address] Phone #: ext- [phone] 04/15/2019 15:29 Patient: LORRAINE BLANCO Sex: F [...] pads). 3 Clinical Report - Physicians/Mid Levels [facility] Emergency Department [address] [place] [address] Phone #: ext- [phone] 04/15/2019 15:29 Patient: LORRAINE BLANCO Sex: F : 1985 Age: 33y Follow-up: Follow up with your doctor Wednesday. Reason for referral: evaluation, treatment and refer to Podiatry. Summary of care provided to patient. Understanding of the discharge instructions verbalized by patient.(Electronically signed by DEIRDRE Monge 04/15/2019 19:48) Name Value Range Interpretation Code Description Data Sindi rce(s) Supporting Document(s) ID Date Data Source [id number] 03/06/2019 09:48:00 AM EST [facility] [address] [place] [address] PHONE: [phone] FAX: [phone] Name .................. : FRANCIS Frias Acct Number.................. : [id number] ROOM. ................. : MR Number ................... : [id number] Stay type ............. : O/P Discharge Date......... ... : 03/03/19 Admit Date ......... : 03/03/19 Admit Phys .................... : OSCAR TRAN Date of ....... : 1985 Family Phys ................... : UNKNOWN CO Phone .................. : [phone] Age ................................ : 33 Film# .................. .:[id number] Sex ................................. : F Unsigned transcriptions are preliminary reports and do not represent a medical or legal document MRI LOWER EXT ANY JT W CONT [id number] COMPLETE:03/03/19 10:42 [facility] [id number] (REASON FOR PROCESS: PAIN MRI OF THE [...] Date: Copy for: OSCAR OG Copy for: [address] [place] [address] REC Page 1 of 1 Name Value Range Interpretation Code Description Data Sindi rce(s) Supporting Document(s) ID Date Data Source [id number] 03/03/2019 01:29:00 PM [facility] [address] [place] [address] PHONE: [phone] FAX: [phone] Name .................. : FRANCIS LORRAINE Altagracia Acct Number.................. : [id number] ROOM. ................. : MR Number ................... : [id number] Stay type ............. : O/P Discharge Date......... ... : 03/03/19 Admit Date ......... : 03/03/19 Admit Phys .................... : OSCAR TRAN Date of ....... : 1985 Family Phys ................... : UNKNOWN CO Phone .................. : [phone] Age ................................ : 33 Film# .................. .:[id number] Sex ................................. : F Unsigned transcriptions are preliminary reports and do not represent a medical or legal document INJECTION FOR HIP ARTHROGRAM [id number] COMPLETE:03/03/19 09:20 74159 REASON FOR EXAM: PAIN FLUOROSCOPIC EXAMINATION OF [...] 03/03/19 13:29, [facility] Page 1 of 2 [place] [address] PHONE: [phone] FAX: [phone] Name .................. : FRANCIS Frias Acct Number.................. : [id number] ROOM. ................. : MR Number ................... : [id number] Stay type ............. : O/P Discharge Date......... ... : 03/03/19 Admit Date ......... : 03/03/19 Admit Phys .................... : OSCAR TRAN Date of ....... : 1985 Family Phys ................... : UNKNOWN CO Phone .................. : [phone] Age ................................ : 33 Film# .................. .:[id number] Sex ................................. : F Unsigned transcriptions are preliminary reports and do not represent a medical or legal document INJECTION FOR HIP ARTHROGRAM [id number] COMPLETE:03/03/19 09:20 55436 REASON FOR EXAM: PAIN Transcribe Initials: RANDY , Transcribe Date: 03/03/19 10:03, Dictation Date: Copy for: OSCAR OG Copy for: 710 MED REC Page 2 of 2 Name Value Range Interpretation Code Description Data Sindi rce(s) Supporting Document(s) Procedure Vital Signs ID Date Data Source UNK Name Value Range Interpretation Code Description Data Source(s) Body weight 84.937 kg 84.937 kg [facility] ([facility]) Body mass index (BMI) [Ratio] 30.2 kg/m2 30.2 k g/m2 [facility] ([facility]) Body weight 187.25 [lb_av] 187.25 [lb_av] [facility] ([facility]) Body height 66 [in_i] 66 [in_i] [facility] ([facility]) 5'6" Diastolic blood pressure 76 mm[Hg] 76 mm[Hg] [facility] ([facility]) Systolic blood pressure 116 mm[Hg] 116 mm[Hg] [facility] ([facility]) Body weight 87.998 kg 87.998 kg [facility] ([facility]) Body mass index (BMI) [Ratio] 31.3 kg/m2 31.3 k g/m2 [facility] ([facility]) Body weight 194.00 [lb_av] 194.00 [lb_av] [facility] ([facility], ) Body height 66 [in_i] 66 [in_i] [facility] ([facility], ) 5'6" Body temperature 98.4 [degF] 98.4 [degF] [facility] ([facility]) Respiratory rate 16 /min 16 /min [facility] ( [facility]) Heart rate 76 /min 76 /min [facility] ([facility], ) Diastolic blood pressure 82 mm[Hg] 82 mm[Hg] [facility] ([facility]) Systolic blood pressure 118 mm[Hg] 118 mm[Hg] [facility] ([facility], )
--- OUTSIDE RECORDS SUMMARY | 2020-04-01 19:36 | CCD ---
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 If you continue you may have access to information: Regarding HIV / AIDS; Provided by facilities licensed or operated by the [facility] Office of Mental Health; or Provided by the [facility] Office for People With Developmental Disabilities. If such information is present, then the following [facility] mandated warning applies: This information [...] law may result in a fine or senior living sentence or both. A general authorization for the release of medical or other information is NOT sufficient authorization for further disc losure. Encounters Encounter Providers Location Date Indications Data Source(s ) Outpatient Attender: NIC SADLER MD Main office [facility] 11/20/2019 02:30:00 [facility] [place] Outpatient Attender: ANDRY EAGLE 07:58:00 AM EDT - 11/17/2019 08:58:[address] [facility] Patient discharged. Outpatient Attender: MIRACLE SERAFINGM LOZOYA 2019 08:15:54 AM EDT - 11/14/2019 05:30:[address] [facility] Patient discharged. Outpatient Attender: ANDRY EAGLE 03:53:39 PM EDT - 11/07/2019 02:24:[address] [facility] Patient discharged. Outpatient Attender: MIRACLE SERAFINGM LOZOYA 2019 01:15:00 PM EDT - 10/12/2019 01:15:[address] [facility] Outpatient Attender: TAPAN Nieves/Jose/Maddie forte 09/25/2019 03:00:00 PM EDT [facility] ([facility], ) Outpatient Attender: Allan Kim RPA-C 0 09/20/2019 12:07:52 PM EDT - 10/26/2019 10:39:[address] [facility] Patient discharged. Outpatient Attender: Allan Kim RPA-C 0 08/04/2019 11:41:43 AM EDT - 08/05/2019 06:00:[address] [facility] Patient discharged. Emergency Attender: BILL HOWARD MD 03:39:00 PM [facility] - 04/15/2019 05:17:00 PM [facility] Patient discharged. Outpatient Attender: LENKA MOORE 09:12:00 AM [facility] - 03/03/2019 10:12:00 AM [facility] Medications Medication Brand Name Start Date Product Form Dose Route Admi nistrative Instructions Pharmacy Instructions Status Indications Reaction Description Data Source(s) zonisamide 25 MG Oral Capsule Zonisamide 11/20/2019 12:00:00 AM EDT ORAL active [facility] ([facility], ) zonisamide 50 MG Oral Capsule Zonisamide 11/20/2019 12:00:00 AM EDT ORAL active [facility] ([facility], ) Insurance Providers Payer name Policy type / Coverage type Policy ID Covered constitution party ID Covered constitution party's relationship to mcmullen Policy Mcmullen Plan Information [facility] ACTIVE DUTY [id number] SP [id number] [facility] HUMANA - O/P [id number] 18 [id number] [facility] [place] [id number] 18 [id number] [facility] ACT[facility] DUTY [id number] SP [id number] SELF PAY ONLY SP U [id number] Self [id number] U [id number] Self [id number] Problems, Conditions, and Diagnoses Code Display Name Description Problem Type Effective Dates Data Source(s) R519 Headache, unspecified Headache, unspecified Diagnosis 11/17/2019 07:58:[address] [facility] G4733 Obstructive sleep apnea (adult) (pediatr ic) Obstructive sleep apnea (adult) (pediatric) Diagnosis 11/13/2019 08:00:[address] [facility] R99 Ill-defined and unknown cause of mortali ty Ill-defined and unknown cause of mortality Diagnosis 11/07/2019 02:24:[address] [facility] [id number] Bunion of left foot Bunion of left foot Diagnosis 0 10/12/2019 01:15:[address] [facility] G4489 Other headache syndrome Other headache syndrome Diagno sis 08/04/2019 08:30:[address] [facility] G4761 Periodic limb movement disorder Periodic limb movement disorder Diagnosis 08/04/2019 08:30:[address] [facility] R400 Somnolence Somnolence Diagnosis 08/04/2019 08:30:[address] 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, left hip Diagnosis 03/03/2019 09:12:00 AM [facility] Surgeries/Procedures Procedure Description Date Indications Data Source(s) Magnetic Resonance Angiogtaphy Head W/O Contrast Material(S) 12/18/2019 12:00:00 AM EST [facility] ([facility], ) Magnetic Resonance Angiogtaphy Head W/O Contrast Material(S) 12/18/2019 12:00:00 AM EST [facility] ([facility], ) Magnetic Resonance Angiography Neck W/O Contrast Materials 12/18/2019 12:00:00 AM EST [facility] ([facility], ) Magnetic Resonance Angiography Neck W/O Contrast Materials 12/18/2019 12:00:00 AM EST [facility] ([facility], ) MRI SPINAL CANAL CERVICAL W/O CONTRAST MATRL 0 12:00:00 AM EST [facility] ([facility], ) MRI SPINAL CANAL CERVICAL W/O CONTRAST MATRL 0 12:00:00 AM EST [facility] ([facility], ) NON-INVASIVE PHYSIOLOGIC STUDY EXTREMITY 3 LEVLS 11/28 12:00:00 AM EDT [facility] ([facility], ) NON-INVASIVE PHYSIOLOGIC STUDY EXTREMITY 3 LEVLS 11/28 12:00:00 AM EDT [facility] ([facility], ) NON-INVASIVE PHYSIOLOGIC STUDY EXTREMITY 3 LEVLS 11/28 12:00:00 AM EDT [facility] ([facility], ) NON-INVASIVE PHYSIOLOGIC STUDY EXTREMITY 3 LEVLS 11/28 12:00:00 AM EDT [facility] ([facility], ) TSTG ANS FUNCJ CARDIOVAGAL INNERVAJ PARASYMP 0 12:00:00 AM EDT [facility] ([facility], ) TSTG ANS FUNCJ CARDIOVAGAL INNERVAJ PARASYMP 0 12:00:00 AM EDT [facility] ([facility], ) TESTING AUTONOMIC NERVOUS SYSTEM FUNCTION 11/29/2019 1 2:00:00 AM EDT [facility] ([facility], ) TESTING AUTONOMIC NERVOUS SYSTEM FUNCTION 11/29/2019 1 2:00:00 AM EDT [facility] ([facility], ) Results ID Date Data Source [id number] 11/17/2019 12:39:00 [place] [address] PHONE: [phone] FAX: [phone] Name .................. : FRANCIS Frias Acct Number.................. : [id number] ROOM. ................. : Number ................... : [id number] Stay type ............. : O/P Discharge Date......... ... : 11/17/19 Admit Date .... ..... : 11/17/19 Admit Phys .................... : SHAGUFTA BACA Date of ....... : 1985 Family Phys ................... : UNKNOWN CO Phone .................. : [phone] Age ................................ : 33 Film# .................. .:[id number] Sex ................................. : F Unsigned transcriptions are preliminary reports and do not represent a medical or legal document MRI BRAIN W/O CONTRAST [id number] COMPLETE:11/17/19 08:01 04718 (REASON FOR PROCEDURE HEADACHES MRI OF THE [...] Copy for: SHAGUFTA WILDE Copy for: Lorrie [facility] Page 1 of 1 Name Value Range Interpretation Code Description Data Sindi rce(s) Supporting Document(s) ID Date Data Source [id number] 05/05/2019 05:44:00 PM EDT [facility] ([facility]) Name Value Range Interpretation Code Description Data Sindi rce(s) Supporting Document(s) Glucose, Fasting 97 mg/dL 70-100 Normal (applies to non-numeric results) [facility] ([facility]) Glomerular Filtration Rate Laboratory test result Normal (applies to non- numeric results) [facility]) <content>Units are mL/min/1.73 m2</content>
<content></content>
<content>Chronic Kidney Disease Staging per NKF:</content>
<content></content>
<content>Stage I & II GFR >=60 Normal to Mildly Decreased</content>
<content>Stage III GFR 30-59 Moderately Decreased</content>
<content>Stage IV GFR 15-29 Severely Decreased</content>
<content>Stage V GFR <15 Very Little GFR Left</content>
<content>ESRD GFR <15 on GUEST ASSOCIATE</content>
<content></content> Blood Urea Nitrogen 10 mg/dL 7-18 Normal (applies to non-nume karly results) [facility] ([facility]) Creatinine For GFR 0.82 mg/dL 0.55-1.30 Normal (applies to non -numeric results) [facility] ([facility]) Chloride Level 108 meq/L 98-107 Above high normal [facility] ([facility]) Sodium Level 139 meq/L 136-145 Normal (applies to non-numeric res ults) [facility]) Potassium Serum 3.7 meq/L 3.5-5.1 Normal (applies to non-numeric results) [facility]) Carbon Dioxide Level 28 meq/L 21-32 Normal (applies to non-num yared results) [facility] ([facility]) Anion Gap 3 meq/L 8-16 Below low normal [facility] ( [facility]) Calcium Level 8.8 mg/dL 8.5-10.1 Normal (applies to non-numeric re sults) [facility] ([facility]) ID Date Data Source [id number] 05/05/2019 05:44:00 PM EDT [facility] ([facility]) Name Value Range Interpretation Code Description Data Sindi rce(s) Supporting Document(s) White Blood Count 14.1 10 4.0-10.0 Above high normal [facility] ([facility]) Red Blood Count 4.14 10 4.00-5.40 Normal (applies to non-numeric results) [facility] ([facility]) Hemoglobin 10.0 g/dL 12.0-15.5 Below low normal [facility] ( [facility]) Hematocrit 32.9 % 36.0-47.0 Below low normal [facility] ( [facility]) Mean Corpuscular Volume 79.5 fl 80.0-96.0 Below low normal [facility] ([facility]) Mean Corpuscular Hemoglobin 24.2 pg 27.0-33.0 Below low normal [facility] ([facility]) Mean Corpuscular HGB Conc 30.4 g/dL 32.0-36.5 Below low normal [facility] Platelet Count, Automated 221 10 150-450 Normal (applies to non-numeric results) [facility] ([facility]) Red Cell Distribution Width 16.5 % 11.5-14.5 Above high normal [facility] ([facility]) Nucleated Red Blood Cell % 0.0 % 0-0 Normal (applies to n on-numeric results) [facility] ([facility]) ID Date Data Source [id number] 04/17/2019 09:09:00 [place] [address] PHONE: [phone] FAX: [phone] Name .................. : FRANCIS Frias Acct Number.................. : [id number] ROOM. ................. : TR-04 Number ................... : [id number] Stay type ............. : E/R Discharge Date......... ... : 04/15/19 Admit Date ... ...... : 04/15/19 Admit Phys .................... : LEE SOARES Date of ....... : 1985 Family Phys ................... : UNKNOWN CO Phone .................. : [phone] Age ................................ : 33 Film# .................. .:[id number] Sex ................................. : F Unsigned transcriptions are preliminary reports and do not represent a medical or legal document FOOT COMPLETE-3 OR MORE [facility] [id number] COMPLETE:04/15/19 17:37 [facility] [address]706 Reason(s): Pain LEFT FOOT SERIES: FINDINGS: Some [...] rce(s) Supporting Document(s) ID Date Data Source [id number] 04/15/2019 03:39:[address] [facility] [address] [facility] Emergency Department [address] [place] [address] Phone #: [phone]- [phone] 04/15/2019 15:29 Patient: LORRAINE BLANCO Sex: F : 1985 Age: 33yWEIGHT:81.6 kg (S) HEIGHT:66 inches (S) BMI:29.0ALLERGIE S: No Known Drug AllergyCHIEF COMPLAINT: pain, swelling, pain, swelling, altered sensation, Lt, feet, in:LAB ORDERSOrder Description Priority Entered Acknowledged InitialedDIAGNOSTIC STUDY ORDERSOrder Description Priority Entered Acknowledged InitialedFoot Complete Left STAT 15:49 04/15/2019 Ack'd: 15:52 15:55 [place](Oxygen?(No)) Gini Daly ED, Jesse ER PA; R.N. [...] rce(s) Supporting Document(s) ID Date Data Source [id number] 04/15/2019 03:39:00 PM [facility] [address] [facility] Emergency Department [address] [place] [address] Phone #: ext- [phone] 04/15/2019 15:29 Patient: [...] rce(s) Supporting Document(s) ID Date Data Source [id number] 04/15/2019 03:39:00 PM [facility] [address] [facility] Emergency Department [address] [place] [address] Phone #: ext- [phone] 04/15/2019 15:29 Patient: LORRAINE BLANCO Sex: F : 1985 Age: 33yWeight: 81.6 kgHeight/Length: 66 inBMI: 29ALLERGIES: No Known Drug Allergy Date/Time Medication Administered Medication OrderedGiven TYLENOL [PO] (APAP) Tylenol PO 1000 mg15:52 04/15/2019 Dose: 1000 mg Tablets Gini Henderson R.N. Name Value Range Interpretation Code Description Data Sindi rce(s) Supporting Document(s) ID Date Data Source [id number] 04/15/2019 03:39:00 PM [facility] [address] [facility] Emergency Department [address] [place] [address] Phone #: ext- [phone] 04/15/2019 15:29 Patient: [...] rce(s) Supporting Document(s) ID Date Data Source [id number] 04/15/2019 03:39:00 PM [facility] 1 Clinical Report - Nurses [facility] Emergency Department [address] [place] [address] Phone #: [phone]- [phone] 04/15/2019 15:29 Patient: LORRAINE BLANCO Sex: F [...] her boot she wears or a bunion).Treatment REGIONAL ACCOUNT MANAGER:None.SEPSIS SCREEN: NEGATIVE heart rate greater than 90.JOSE [...] tubal ligation. 2 Clinical Report - Nurses [facility] Emergency Department [address] [place] [address] Phone #: ext- [phone] 04/15/2019 15:29 Patient: [...] Duque R.N. 3 Clinical Report - Nurses [facility] Emergency Department [address] [place] [address] Phone #: ext- [phone] 04/15/2019 15:29 Patient: LORRAINE BLANCO Sex: F : 1985 Age: 33y The patient reports no complaints and she is calm and resting quietly. Patient waiting for radiology study to be done. --16:37 04/15/19 Gini Duque R.N. Patient transported to radiology by wheelchair with tech. --16:46 04/15/19 Gnii Duque R.N. Patient returned from radiology by wheelchair with tech. --16:56 04/15/19 Gini Duque R.N.DISPOSITION / DISCHARGE Departure time: 17:17 04/15/2019. Condition at departure: stable. No learning barriers present. Discharge instructions provided and reviewed with the patient. Reviewed warnings (please see paper copy). Treatments reviewed (Try bunion pads). Activity restrictions reviewed. Work note given. Patient verbalized understanding. Written instructions provided in [place]. The patient was discharged by the physician processing assistant. She was discharged home and unaccompanied [...] rce(s) Supporting Document(s) ID Date Data Source [id number] 04/15/2019 03:39:[address] [facility] 1 Clinical Report - Physicians/Mid Levels [facility] Emergency Department [address] [place] [address] Phone #: ext- [phone] 04/15/2019 15:29 Patient: [...] consumes wine occasionally. 2 Clinical Report - Physicians/[facility] Emergency Department [address] [place] [address] Phone #: ext- [phone] 04/15/2019 15:29 Patient: LORRAINE BLANCO Sex: F [...] pads). 3 Clinical Report - Physicians/Mid Levels [facility] Emergency Department [address] [place] [address] Phone #: ext- [phone] 04/15/2019 15:29 Patient: LORRAINE BLANCO Sex: F : 1985 Age: 33y Follow-up: Follow up with your doctor Wednesday. Reason for referral: evaluation, treatment and refer to Podiatry. Summary of care provided to patient. Understanding of the discharge instructions verbalized by patient.(Electronically signed by DEIRDRE Monge 04/15/2019 19:48) Name Value Range Interpretation Code Description Data Sindi rce(s) Supporting Document(s) ID Date Data Source [id number] 03/06/2019 09:48:00 AM EST [facility] [address] [place] [address] PHONE: [phone] FAX: [phone] Name .................. : FRANCIS Frias Acct Number.................. : [id number] ROOM. ................. : MR Number ................... : [id number] Stay type ............. : O/P Discharge Date......... ... : 03/03/19 Admit Date ......... : 03/03/19 Admit Phys .................... : OSCAR TRAN Date of ....... : 1985 Family Phys ................... : UNKNOWN CO Phone .................. : [phone] Age ................................ : 33 Film# .................. .:[id number] Sex ................................. : F Unsigned transcriptions are preliminary reports and do not represent a medical or legal document MRI LOWER EXT ANY JT W CONT [id number] COMPLETE:03/03/19 10:42 [facility] 54709 (REASON FOR PROCESS: PAIN MRI OF THE [...] Date: Copy for: OSCAR OG Copy for: [address] [place] [address] REC Page 1 of 1 Name Value Range Interpretation Code Description Data Sindi rce(s) Supporting Document(s) ID Date Data Source [id number] 03/03/2019 01:29:00 PM [facility] [address] [place] [address] PHONE: [phone] FAX: [phone] Name .................. : FRANCIS LORRAINE Altagracia Acct Number.................. : [id number] ROOM. ................. : MR Number ................... : [id number] Stay type ............. : O/P Discharge Date......... ... : 03/03/19 Admit Date ......... : 03/03/19 Admit Phys .................... : OSCAR TRAN Date of ....... : 1985 Family Phys ................... : UNKNOWN CO Phone .................. : [phone] Age ................................ : 33 Film# .................. .:[id number] Sex ................................. : F Unsigned transcriptions are preliminary reports and do not represent a medical or legal document INJECTION FOR HIP ARTHROGRAM [id number] COMPLETE:03/03/19 09:20 54785 REASON FOR EXAM: PAIN FLUOROSCOPIC EXAMINATION OF [...] 03/03/19 13:29, [facility] [address] [place] [address] PHONE: [phone] FAX: [phone] Name .................. : FRANCIS Frias Acct Number.................. : [id number] ROOM. ................. : MR Number ................... : [id number] Stay type ............. : O/P Discharge Date......... ... : 03/03/19 Admit Date ......... : 03/03/19 Admit Phys .................... : OSCAR TRAN Date of ....... : 1985 Family Phys ................... : UNKNOWN CO Phone .................. : [phone] Age ................................ : 33 Film# .................. .:[id number] Sex ................................. : F Unsigned transcriptions are preliminary reports and do not represent a medical or legal document INJECTION FOR HIP ARTHROGRAM [id number] COMPLETE:03/03/19 09:20 02957 REASON FOR EXAM: PAIN Transcribe Initials: RANDY [...] [facility]) Body mass index (BMI) [Ratio] 30.2 kg/m2 30.2 k g/m2 [facility] ([facility]) Body weight 187.25 [lb_av] 187.25 [lb_av] [facility] ([facility]) Body height 66 [in_i] 66 [in_i] [facility] ([facility]) 5'6" Diastolic blood pressure 76 mm[Hg] 76 mm[Hg] [facility] ([facility]) Systolic blood pressure 116 mm[Hg] 116 mm[Hg] [facility] ([facility]) Body weight 87.998 kg 87.998 kg [facility] ([facility]) Body mass index (BMI) [Ratio] 31.3 kg/m2 31.3 k g/m2 [facility] ([facility]) Body weight 194.00 [lb_av] 194.00 [lb_av] [facility] ([facility], ) Body height 66 [in_i] 66 [in_i] [facility] ([facility], ) 5'6" Body temperature 98.4 [degF] 98.4 [degF] [facility] ([facility]) Respiratory rate 16 /min 16 /min [facility] ( [facility]) Heart rate 76 /min 76 /min [facility] ([facility], ) Diastolic blood pressure 82 mm[Hg] 82 mm[Hg] [facility] ([facility]) Systolic blood pressure 118 mm[Hg] 118 mm[Hg] [facility] ([facility], )
[2020-04-01] MEDS ORDERED: diphenhydrAMINE 50MG/ML VIAL (J1200) IV ONE (19:45)
[2020-04-01] MEDS ORDERED: KETOROLAC 30 MG/ML 1ML VIAL IV ONE (19:45)
[2020-04-01] MEDS ORDERED: ONDANSETRON 4MG/2ML VIAL IV ONE (19:45)
[2020-04-01 20:59] LABS: BASO % 0.4 % (0.0-1.0); EOS # 0.1 10^3/uL (0.0-0.5); EOS % 1.6 % (0.0-3.0); HEMATOCRIT 43.2 % (36.0-47.0); HEMOGLOBIN 13.6 g/dl (12.0-15.5); LYMPH # 2.8 10^3/uL (1.5-5.0); MEAN CORPUSCULAR HEMOGLOBIN 26.8 pg (27.0-33.0); MEAN CORPUSCULAR HGB CONC 31.5 g/dl (32.0-36.5); MONO # 0.3 10^3/uL (0.0-0.8); NEUTROPHILS # 1.8 10^3/uL (1.5-8.5); NEUTROPHILS % 35.8 % (36.0-66.0); PLATELET COUNT, AUTOMATED 160 10^3/uL (150-450); RED BLOOD COUNT 5.08 10^6/uL (4.00-5.40)
[2020-04-01 21:19] LABS: HCG, SERUM QUALITATIVE NEGATIVE (NEGATIVE)
[2020-04-01 21:21] LABS: ALBUMIN 4.2 GM/DL (3.2-5.2); ALT/SGPT 27 U/L (12-78); BILIRUBIN,DIRECT 0.1 MG/DL (0.0-0.2); BILIRUBIN,TOTAL 0.4 MG/DL (0.2-1.0); BLOOD UREA NITROGEN 11 MG/DL (7-18); CALCIUM LEVEL 9.3 MG/DL (8.5-10.1); CARBON DIOXIDE LEVEL 25 MEQ/L (21-32); CHLORIDE LEVEL 110 MEQ/L (98-107); CREATININE FOR GFR 0.74 MG/DL (0.55-1.30); GLOMERULAR FILTRATION RATE > 60.0 (>60); GLUCOSE, FASTING 76 MG/DL (70-100); LIPASE 116 U/L (73-393); POTASSIUM SERUM 4.1 MEQ/L (3.5-5.1); SODIUM LEVEL 141 MEQ/L (136-145); TOTAL PROTEIN 7.7 GM/DL (6.4-8.2)
--- NOTE | 2020-04-01 21:27 | REPVR ---
PROCEDURE INFORMATION: Exam: US Nonobstetric Pelvis; Complete Exam date and time: 04/01/2020 9:06 PM Age: 34 years old Clinical indication: Pelvic pain; Prior surgery; Surgery date: 6+ months; Surgery type: Ablation, TECHNIQUE: Imaging protocol: Transabdominal pelvic nonobstetric ultrasound. Complete exam. Real time ultrasound with image documentation. COMPARISON: US PELVIC NON-OB COMPLETE 03/14/2020 10:30 PM FINDINGS: Uterus/cervix: Hypoechoic complex fluid density mass in the lower uterine segment measuring 4.5 x 2.8 x 3.3 cm, larger than demonstrated previously. Upper endometrial echo complex measures 8.9 mm. Uterus measures 11 x 4.7 x 6.6 cm. Right adnexa: Right ovary measures 6 x 4.4 x 5.1 cm. Normal flow. Resistive index 0.59. Large complex cystic focus demonstrated in the right ovary measuring 5 x 3.9 x 4.2 cm demonstrating internal septae. Findings most likely represent a hemorrhagic cyst. Left adnexa: Left ovary measures 2.4 x 1.9 x 1.8 cm. Normal flow. Resistive index 0.63. Intraperitoneal space: No free fluid in the cul-de-sac. Urinary bladder: Normal. IMPRESSION: 1. Hypoechoic complex fluid density mass in the lower uterine segment measuring 4.5 x 2.8 x 3.3 cm, larger than demonstrated previously. 2. Large complex cystic focus demonstrated in the right ovary measuring 5 x 3.9 x 4.2 cm demonstrating internal septae. Findings most likely represent a hemorrhagic cyst. Recommend 6-12 week follow-up to ensure resolution. Electronically signed by: William Beaver On 04/01/2020 21:27:34 PM
[2020-04-01] MEDS ORDERED: NORCO 5/325MG TABLET (BULK FOR ED) PO ONE (21:45)
[2020-04-01 21:55] VITALS: BP 130/79
--- NOTE | 2020-04-02 06:59 | ED PDOC ---
Post-Departure Follow-Up radiology rpeort faxed to [facility] Samantha Tubbs MD Apr 02, 2020 06:58
== END 2020-04-01 22:02 | disposition home or self-care (01) ==
LOC: M ED 17:05
DX: N80.9 Endometriosis, unspecified (principal); N83.291 Other ovarian cyst, right side; F17.200 Nicotine dependence, unspecified, uncomplicated; Z79.899 Other long term (current) drug therapy
CPT/HCPCS: 76830; 76856; 80048; 80076; 81001; 83690; 84703; 85025; 93976; 96374; 96375; 99284; J1200; J1885; J2405

== ENCOUNTER 2020-04-04 12:47 | Emergency (ER) | payer OTHER ==
[~2020-04-04] VITALS: Ht 167.6 cm; Wt 81.8 kg
--- OUTSIDE RECORDS SUMMARY | 2020-04-04 12:55 | CCD ---
Author Author [facility] Organization [facility] Address Unknown Phone Unavailable Care Team Providers Care Wait Staff Name Role Phone MAX, E TAPAN DO [...] is protected by Article 27-F of the [facility] Public Health law. If you continue you may have access to information: Regarding HIV / AIDS; Provided by facilities licensed or operated by the [facility] Office of Mental Health; or Provided by the [facility] Office for People With Developmental Disabilities. If such information is present, then the following [facility] mandated warning applies: This information [...] law may result in a fine or chcf sentence or both. A general authorization for the release of medical or other information is NOT sufficient authorization for further disc losure. Encounters Encounter Providers Location Date Indications Data Source(s ) Outpatient Attender: NIC SADLER MD Main office [facility] 11/20/2019 02:30:00 [facility] [place] Outpatient Attender: ANDRY EAGLE 07:58:00 AM EDT - 11/17/2019 08:58:00 AM EDT [facility] Patient discharged. Outpatient Attender: MIRACLE SERAFINGM LOZOYA 2019 08:15:54 AM EDT - 11/14/2019 05:30:00 AM EDT [facility] Patient discharged. Outpatient Attender: ANDRY EAGLE 03:53:39 PM EDT - 11/07/2019 02:24:00 PM EDT [facility] Patient discharged. Outpatient Attender: MIRCALE SERAFINGM LOZOYA 2019 01:15:00 PM EDT - 10/12/2019 01:15:00 PM EDT [facility] Outpatient Attender: TAPAN Nieves/Jose/Maddie forte 09/25/2019 03:00:00 PM EDT [facility] ([facility], ) Outpatient Attender: Allan Kim RPA-C 0 09/20/2019 12:07:52 PM EDT - 10/26/2019 10:39:00 AM EDT [facility] Patient discharged. Outpatient Attender: Allan Kim RPA-C 0 08/04/2019 11:41:43 AM EDT - 08/05/2019 06:00:00 AM EDT [facility] Patient discharged. Emergency Attender: BILL HOWARD MD 03:39:00 PM [facility] - 04/15/2019 05:17:00 PM [facility] Patient discharged. Outpatient Attender: LENKA MOORE 09:12:00 AM [facility] - 03/03/2019 10:12:00 AM [facility] Medications Medication Brand Name Start Date Product [...] relationship to mcmullen Policy Mcmullen Plan Information [facility] [id number] SP [id number] [facility] - O/P [id number] 18 [id number] [facility] [place] [place] [id number] 18 [id number] [facility] [id number] SP [id number] SELF PAY ONLY SP U [id number] Self [id number] U [id number] Self [id number] Problems, Conditions, and Diagnoses Code Display Name Description Problem Type Effective Dates Data Source(s) R519 Headache, unspecified Headache, unspecified Diagnosis 11/17/2019 07:58:00 AM EDT [facility] G4733 Obstructive sleep apnea (adult) (pediatr ic) Obstructive sleep apnea (adult) (pediatric) Diagnosis 11/13/2019 08:00:00 PM EDT [facility] R99 Ill-defined and unknown cause of mortali ty Ill-defined and unknown cause of mortality Diagnosis 11/07/2019 02:24:00 PM EDT [facility] M48521 Bunion of left foot Bunion of left foot Diagnosis 0 10/12/2019 01:15:00 PM EDT [facility] G4489 Other headache syndrome Other headache syndrome Diagno sis 08/04/2019 08:30:00 PM EDT [facility] G4761 Periodic limb movement disorder Periodic limb movement disorder Diagnosis 08/04/2019 08:30:00 PM EDT [facility] R400 Somnolence Somnolence Diagnosis 08/04/2019 08:30:00 PM ED T [facility] R0683 Snoring Snoring Diagnosis 08/04/2019 08:30:00 PM ED [facility] T29369 Pain in left foot Pain in left foot Diagnosis 04/15/2019 03:39:00 PM [facility] 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, 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, left hip Diagnosis 03/03/2019 09:12:00 AM [facility] Surgeries/Procedures Procedure Description Date Indications Data Source(s) Magnetic Resonance Angiogtaphy Head W/O Contrast Material(S) 12/18/2019 12:00:00 AM EST [facility] ([facility], ) Magnetic Resonance Angiogtaphy Head W/O Contrast Material(S) 12/18/2019 12:00:00 AM EST [facility] ([facility], ) Magnetic Resonance Angiography Neck W/O Contrast Materials 12/18/2019 12:00:00 AM EST [facility] ([facility], ) Magnetic Resonance Angiography Neck W/O Contrast Materials 12/18/2019 12:00:00 AM EST [facility] ([facility], ) MRI SPINAL CANAL CERVICAL W/O CONTRAST MATRL 0 12:00:00 AM EST [facility] ([facility], ) MRI SPINAL CANAL CERVICAL W/O CONTRAST MATRL 0 12:00:00 AM EST [facility] ([facility], ) NON-INVASIVE PHYSIOLOGIC STUDY EXTREMITY 3 LEVLS 11/28 12:00:00 AM EDT [facility] ([facility], ) NON-INVASIVE PHYSIOLOGIC STUDY EXTREMITY 3 LEVLS 11/28 12:00:00 AM EDT [facility] ([facility], ) NON-INVASIVE PHYSIOLOGIC STUDY EXTREMITY 3 LEVLS 11/28 12:00:00 AM EDT [facility] ([facility], ) NON-INVASIVE PHYSIOLOGIC STUDY EXTREMITY 3 LEVLS 11/28 12:00:00 AM EDT [facility] ([facility], ) TSTG ANS FUNCJ CARDIOVAGAL INNERVAJ PARASYMP 0 12:00:00 AM EDT [facility] ([facility], ) TSTG ANS FUNCJ CARDIOVAGAL INNERVAJ PARASYMP 0 12:00:00 AM EDT [facility] ([facility], ) TESTING AUTONOMIC NERVOUS SYSTEM FUNCTION 11/29/2019 1 2:00:00 AM EDT [facility] ([facility], ) TESTING AUTONOMIC NERVOUS SYSTEM FUNCTION 11/29/2019 1 2:00:00 AM EDT [facility] ([facility], ) Results ID Date Data Source [id number] 11/17/2019 12:39:[place] [address] PHONE: [phone] FAX: [phone] Name .................. : FRANCIS Frias Acct Number.................. : [id number] ROOM. ................. : Number ................... : [id number] Stay type ............. : O/P Discharge Date......... ... : 11/17/19 Admit Date .... ..... : 11/17/19 Admit Phys .................... : SHAGUFTA BACA Date of ....... : 1985 Family Phys ................... : UNKNOWN CO Phone .................. : [phone] Age ................................ : 33 Film# .................. .:[id number] Sex ................................. : F Unsigned transcriptions are preliminary reports and do not represent a medical or legal document MRI BRAIN W/O CONTRAST [id number] COMPLETE:11/17/19 08:01 13936 (REASON FOR PROCEDURE HEADACHES MRI OF THE [...] Copy for: SHAGUFTA WILDE Copy for: Lorrie [facility] Page 1 of 1 Name Value Range Interpretation Code Description Data Sindi rce(s) Supporting Document(s) ID Date Data Source [id number] 05/05/2019 05:44:00 PM EDT [facility] ([facility]) Name Value Range Interpretation Code Description Data Sindi rce(s) Supporting Document(s) Glucose, Fasting 97 mg/dL 70-100 Normal (applies to non-numeric results) [facility] ([facility]) Glomerular Filtration Rate Laboratory test result Normal (applies to non- numeric results) [facility]) <content>Units are mL/min/1.73 m2</content>
<content></content>
<content>Chronic Kidney Disease Staging per NKF:</content>
<content></content>
<content>Stage I & II GFR >=60 Normal to Mildly Decreased</content>
<content>Stage III GFR 30-59 Moderately Decreased</content>
<content>Stage IV GFR 15-29 Severely Decreased</content>
<content>Stage V GFR <15 Very Little GFR Left</content>
<content>ESRD GFR <15 on STATION USHER</content>
<content></content> Blood Urea Nitrogen 10 mg/dL 7-18 Normal (applies to non-nume karly results) [facility] ([facility]) Creatinine For GFR 0.82 mg/dL 0.55-1.30 Normal (applies to non -numeric results) [facility] ([facility]) Chloride Level 108 meq/L 98-107 Above high normal [facility] ([facility]) Sodium Level 139 meq/L 136-145 Normal (applies to non-numeric res ults) [facility]) Potassium Serum 3.7 meq/L 3.5-5.1 Normal (applies to non-numeric results) [facility]) Carbon Dioxide Level 28 meq/L 21-32 Normal (applies to non-num yared results) [facility] ([facility]) Anion Gap 3 meq/L 8-16 Below low normal [facility] ( [facility]) Calcium Level 8.8 mg/dL 8.5-10.1 Normal (applies to non-numeric re sults) [facility] ([facility]) ID Date Data Source [id number] 05/05/2019 05:44:00 PM EDT [facility] ([facility]) Name Value Range Interpretation Code Description Data Sindi rce(s) Supporting Document(s) White Blood Count 14.1 10 4.0-10.0 Above high normal [facility] ([facility]) Red Blood Count 4.14 10 4.00-5.40 Normal (applies to non-numeric results) [facility] ([facility]) Hemoglobin 10.0 g/dL 12.0-15.5 Below low normal [facility] ( [facility]) Hematocrit 32.9 % 36.0-47.0 Below low normal [facility] ( [facility]) Mean Corpuscular Volume 79.5 fl 80.0-96.0 Below low normal [facility] ([facility]) Mean Corpuscular Hemoglobin 24.2 pg 27.0-33.0 Below low normal [facility] ([facility]) Mean Corpuscular HGB Conc 30.4 g/dL 32.0-36.5 Below low normal [facility] Platelet Count, Automated 221 10 150-450 Normal (applies to non-numeric results) [facility] ([facility]) Red Cell Distribution Width 16.5 % 11.5-14.5 Above high normal [facility] ([facility]) Nucleated Red Blood Cell % 0.0 % 0-0 Normal (applies to n on-numeric results) [facility] ([facility]) ID Date Data Source [id number] 04/17/2019 09:09:00 [place] [address] PHONE: [phone] FAX: [phone] Name .................. : FRANCIS Frias Acct Number.................. : [id number] ROOM. ................. : TR-04 Number ................... : [id number] Stay type ............. : E/R Discharge Date......... ... : 04/15/19 Admit Date ... ...... : 04/15/19 Admit Phys .................... : LEE SOARES Date of ....... : 1985 Family Phys ................... : UNKNOWN CO Phone .................. : [phone] Age ................................ : 33 Film# .................. .:[id number] Sex ................................. : F Unsigned transcriptions are preliminary reports and do not represent a medical or legal document FOOT COMPLETE-3 OR MORE [facility] [id number] COMPLETE:04/15/19 17:37 [facility] [address]95 Reason(s): Pain LEFT FOOT SERIES: FINDINGS: Some [...] rce(s) Supporting Document(s) ID Date Data Source [id number] 04/15/2019 03:39:00 PM EST [facility] 1 OrderSheet [facility] Emergency Department [address] [place] [address] Phone #: [phone]- [phone] 04/15/2019 15:29 Patient: LORRAINE BLANCO Sex: F : 1985 Age: 33yWEIGHT:81.6 kg (S) HEIGHT:66 inches (S) BMI:29.0ALLERGIE S: No Known Drug AllergyCHIEF COMPLAINT: pain, swelling, pain, swelling, altered sensation, Lt, feet, in:LAB ORDERSOrder Description Priority Entered Acknowledged InitialedDIAGNOSTIC STUDY ORDERSOrder Description Priority Entered Acknowledged InitialedFoot Complete Left STAT 15:49 04/15/2019 Ack'd: 15:52 15:55 [place](Oxygen?(No)) Gini Daly ED, [facility] PA; R.N. [...] rce(s) Supporting Document(s) ID Date Data Source [id number] 04/15/2019 03:39:00 PM [facility] 1 Medication Reconciliation Report [facility] Emergency Department [address] [place] [address] Phone #: ext- [phone] 04/15/2019 15:29 Patient: [...] rce(s) Supporting Document(s) ID Date Data Source [id number] 04/15/2019 03:39:00 PM [facility] 1 Medication Administration Record [facility] Emergency Department [address] [place] [address] Phone #: ext- [phone] 04/15/2019 15:29 Patient: LORRAINE BLANCO Sex: F : 1985 Age: 33yWeight: 81.6 kgHeight/Length: 66 inBMI: 29ALLERGIES: No Known Drug Allergy Date/Time Medication Administered Medication OrderedGiven TYLENOL [PO] (APAP) Tylenol PO 1000 mg15:52 04/15/2019 Dose: 1000 mg Tablets Gini Henderson R.N. Name Value Range Interpretation Code Description Data Sindi rce(s) Supporting Document(s) ID Date Data Source [id number] 04/15/2019 03:39:00 PM [facility] 1 General Instructions [facility] Emergency Department [address] [place] [address] Phone #: ext- [phone] 04/15/2019 15:29 Patient: [...] rce(s) Supporting Document(s) ID Date Data Source [id number] 04/15/2019 03:39:00 PM [facility] 1 Clinical Report - Nurses [facility] Emergency Department [address] [place] [address] Phone #: [phone] 04/15/2019 15:29 Patient: LORRAINE BLANCO Sex: F [...] her boot she wears or a bunion).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 2 Clinical Report - Nurses [facility] Emergency Department [address] [place] [address] Phone #: ext- [phone] 04/15/2019 15:29 Patient: [...] Duque R.N. 3 Clinical Report - Nurses [facility] Emergency Department [address] [place] [address] Phone #: ext- [phone] 04/15/2019 15:29 Patient: LORRAINE BLANCO Sex: F [...] Patient verbalized understanding. Written instructions provided in Kenyan. The patient was discharged by the physician production administrative assistant. She was discharged home and unaccompanied [...] rce(s) Supporting Document(s) ID Date Data Source [id number] 04/15/2019 03:39:00 PM EST [facility] 1 Clinical Report - Physicians/Mid Levels [facility] Emergency Department [address] [place] [address] Phone #: ext- [phone] 04/15/2019 15:29 Patient: [...] consumes wine occasionally. 2 Clinical Report - Physicians/[facility] Emergency Department [address] [place] [address] Phone #: ext- [phone] 04/15/2019 15:29 Patient: LORRAINE BLANCO Sex: F [...] pads). 3 Clinical Report - Physicians/Mid Levels [facility] Emergency Department [address] [place] [address] Phone #: ext- [phone] 04/15/2019 15:29 Patient: LORRAINE BLANCO Sex: F : 1985 Age: 33y Follow-up: Follow up with your doctor Wednesday. Reason for referral: evaluation, treatment and refer to Podiatry. Summary of care provided to patient. Understanding of the discharge instructions verbalized by patient.(Electronically signed by DEIRDRE Monge 04/15/2019 19:48) Name Value Range Interpretation Code Description Data Sindi rce(s) Supporting Document(s) ID Date Data Source [id number] 03/06/2019 09:48:00 AM EST [facility] [address] [place] [address] PHONE: [phone] FAX: [phone] Name .................. : FRANCIS Frias Acct Number.................. : [id number] ROOM. ................. : MR Number ................... : [id number] Stay type ............. : O/P Discharge Date......... ... : 03/03/19 Admit Date ......... : 03/03/19 Admit Phys .................... : OSCAR TRAN Date of ....... : 1985 Family Phys ................... : UNKNOWN CO Phone .................. : [phone] Age ................................ : 33 Film# .................. .:[id number] Sex ................................. : F Unsigned transcriptions are preliminary reports and do not represent a medical or legal document MRI LOWER EXT ANY JT W CONT [id number] COMPLETE:03/03/19 10:42 [facility] 33349 (REASON FOR PROCESS: PAIN MRI OF THE [...] Date: Copy for: OSCAR OG Copy for: [address] [place] [address] REC Page 1 of 1 Name Value Range Interpretation Code Description Data Sindi rce(s) Supporting Document(s) ID Date Data Source [id number] 03/03/2019 01:29:00 PM [facility] [address] [place] [address] PHONE: [phone] FAX: [phone] Name .................. : FRANCIS LORRAINE Altagracia Acct Number.................. : [id number] ROOM. ................. : MR Number ................... : [id number] Stay type ............. : O/P Discharge Date......... ... : 03/03/19 Admit Date ......... : 03/03/19 Admit Phys .................... : OSCAR TRAN Date of ....... : 1985 Family Phys ................... : UNKNOWN CO Phone .................. : [phone] Age ................................ : 33 Film# .................. .:[id number] Sex ................................. : F Unsigned transcriptions are preliminary reports and do not represent a medical or legal document INJECTION FOR HIP ARTHROGRAM [id number] COMPLETE:03/03/19 09:20 45837 REASON FOR EXAM: PAIN FLUOROSCOPIC EXAMINATION OF [...] 03/03/19 13:29, MRA Page 1 of 2 [place] [address] PHONE: [phone] FAX: [phone] Name .................. : FRANCIS Frias Acct Number.................. : [id number] ROOM. ................. : MR Number ................... : [id number] Stay type ............. : O/P Discharge Date......... ... : 03/03/19 Admit Date ......... : 03/03/19 Admit Phys .................... : OSCAR TRAN Date of ....... : 1985 Family Phys ................... : UNKNOWN CO Phone .................. : [phone] Age ................................ : 33 Film# .................. .:[id number] Sex ................................. : F Unsigned transcriptions are preliminary reports and do not represent a medical or legal document INJECTION FOR HIP ARTHROGRAM [id number] COMPLETE:03/03/19 09:20 09815 REASON FOR EXAM: PAIN Transcribe Initials: RANDY , Transcribe Date: 03/03/19 10:03, Dictation Date: Copy for: OSCAR OG Copy for: 710 MED REC Page 2 of 2 Name Value Range Interpretation Code Description Data Sindi rce(s) Supporting Document(s) Procedure Vital Signs ID Date Data Source UNK Name Value Range Interpretation Code Description Data Source(s) Body weight 84.937 kg 84.937 kg [facility] ([facility]) Body mass index (BMI) [Ratio] 30.2 kg/m2 30.2 k g/m2 [facility] ([facility]) Body weight 187.25 [lb_av] 187.25 [lb_av] [facility] ([facility]) Body height 66 [in_i] 66 [in_i] [facility] ([facility]) 5'6" Diastolic blood pressure 76 mm[Hg] 76 mm[Hg] [facility] ([facility]) Systolic blood pressure 116 mm[Hg] 116 mm[Hg] M [facility] ([facility]) Body weight 87.998 kg 87.998 kg [facility] ([facility]) Body mass index (BMI) [Ratio] 31.3 kg/m2 31.3 k g/m2 [facility] ([facility]) Body weight 194.00 [lb_av] 194.00 [lb_av] [facility] ([facility], ) Body height 66 [in_i] 66 [in_i] [facility] ([facility], ) 5'6" Body temperature 98.4 [degF] 98.4 [degF] [facility] ([facility]) Respiratory rate 16 /min 16 /min [facility] ( [facility]) Heart rate 76 /min 76 /min [facility] ([facility], ) Diastolic blood pressure 82 mm[Hg] 82 mm[Hg] [facility] ([facility]) Systolic blood pressure 118 mm[Hg] 118 mm[Hg] [facility] ([facility], )
--- OUTSIDE RECORDS SUMMARY | 2020-04-04 13:28 | CCD ---
Author Author [facility] Organization [facility] Address Unknown Phone Unavailable Care Team Providers Care Pss Delivery Professional Name Role Phone MAX, E TAPAN DO [...] is protected by Article 27-F of the [facility] Public Health law. If you continue you may have access to information: Regarding HIV / AIDS; Provided by facilities licensed or operated by the [facility] Office of Mental Health; or Provided by the [facility] Office for People With Developmental Disabilities. If such information is present, then the following [facility] mandated warning applies: This information has [...] law may result in a fine or snf sentence or both. A general authorization for the release of medical or other information is NOT sufficient authorization for further disc losure. Encounters Encounter Providers Location Date Indications Data Source(s ) Outpatient Attender: NIC SADLER MD Main office [facility] 11/20/2019 02:30:00 [facility] [place] Outpatient Attender: ANDRY EAGLE 07:58:00 AM EDT - 11/17/2019 08:58:00 AM EDT [facility] Patient discharged. Outpatient Attender: MIRACLE SERAFINGM LOZOYA 2019 08:15:54 AM EDT - 11/14/2019 05:30:00 AM EDT [facility] Patient discharged. Outpatient Attender: ANDRY EAGLE 03:53:39 PM EDT - 11/07/2019 02:24:00 PM EDT [facility] Patient discharged. Outpatient Attender: MIRACLE SERAFINGM LOZOYA 2019 01:15:00 PM EDT - 10/12/2019 01:15:00 PM EDT [facility] Outpatient Attender: TAPAN Nieves/Jose/Maddie forte 09/25/2019 03:00:00 PM EDT [facility] ([facility], ) Outpatient Attender: Allan Kim RPA-C 0 09/20/2019 12:07:52 PM EDT - 10/26/2019 10:39:00 AM EDT [facility] Patient discharged. Outpatient Attender: Allan Kim RPA-C 0 08/04/2019 11:41:43 AM EDT - 08/05/2019 06:00:00 AM EDT [facility] Patient discharged. Emergency Attender: BILL HOWARD MD 03:39:00 PM [facility] - 04/15/2019 05:17:00 PM [facility] Patient discharged. Outpatient Attender: LENKA MOORE 09:12:00 AM [facility] - 03/03/2019 10:12:00 AM [facility] Medications Medication Brand Name Start Date Product Form Dose Route Admi nistrative Instructions Pharmacy Instructions Status Indications Reaction Description Data Source(s) zonisamide 25 MG Oral Capsule Zonisamide 11/20/2019 12:00:00 AM EDT ORAL active [facility] ([facility], ) zonisamide 50 MG Oral Capsule Zonisamide 11/20/2019 12:00:00 AM EDT ORAL active [facility] ([facility], ) Insurance Providers Payer name Policy type / Coverage type Policy ID Covered constitution party ID Covered constitution party's relationship to mcmullen Policy Mcmullen Plan Information [facility] ACTIVE DUTY [id number] SP [id number] [facility] HUMANA - O/P [id number] 18 [id number] [facility] [place] [id number] 18 [id number] [facility] ACTIVE DUTY [id number] SP [id number] SELF PAY ONLY SP U [id number] Self [id number] U [id number] Self [id number] Problems, Conditions, and Diagnoses Code Display Name Description Problem Type Effective Dates Data Source(s) R519 Headache, unspecified Headache, unspecified Diagnosis 11/17/2019 07:58:00 AM EDT [facility] G4733 Obstructive sleep apnea (adult) (pediatr ic) Obstructive sleep apnea (adult) (pediatric) Diagnosis 11/13/2019 08:00:00 PM EDT [facility] R99 Ill-defined and unknown cause of mortali ty Ill-defined and unknown cause of mortality Diagnosis 11/07/2019 02:24:00 PM EDT [facility] R80662 Bunion of left foot Bunion of left foot Diagnosis 0 10/12/2019 01:15:00 PM EDT [facility] G4489 Other headache syndrome Other headache syndrome Diagno sis 08/04/2019 08:30:00 PM EDT [facility] G4761 Periodic limb movement disorder Periodic limb movement disorder Diagnosis 08/04/2019 08:30:00 PM EDT [facility] R400 Somnolence Somnolence Diagnosis 08/04/2019 08:30:00 PM ED T [facility] R0683 Snoring Snoring Diagnosis 08/04/2019 08:30:00 PM ED [facility] R89603 Pain in left foot Pain in left foot Diagnosis 04/15/2019 03:39:00 PM [facility] V90030 Other articular cartilage disorders, 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, ) Magnetic Resonance Angiogtaphy Head W/O Contrast Material(S) 12/18/2019 12:00:00 AM EST [facility] ([facility], ) Magnetic Resonance Angiography Neck W/O Contrast Materials 12/18/2019 12:00:00 AM EST [facility] ([facility], ) Magnetic Resonance Angiography Neck W/O Contrast Materials 12/18/2019 12:00:00 AM EST [facility] ([facility], ) MRI SPINAL CANAL CERVICAL W/O CONTRAST MATRL 0 12:00:00 AM EST [facility] ([facility], ) MRI SPINAL CANAL CERVICAL W/O CONTRAST MATRL 0 12:00:00 AM EST [facility] ([facility], ) NON-INVASIVE PHYSIOLOGIC STUDY EXTREMITY 3 LEVLS 11/28 12:00:00 AM EDT [facility] ([facility], ) NON-INVASIVE PHYSIOLOGIC STUDY EXTREMITY 3 LEVLS 11/28 12:00:00 AM EDT [facility] ([facility], ) NON-INVASIVE PHYSIOLOGIC STUDY EXTREMITY 3 LEVLS 11/28 12:00:00 AM EDT [facility] ([facility], ) NON-INVASIVE PHYSIOLOGIC STUDY EXTREMITY 3 LEVLS 11/28 12:00:00 AM EDT [facility] ([facility], ) TSTG ANS FUNCJ CARDIOVAGAL INNERVAJ PARASYMP 0 12:00:00 AM EDT [facility] ([facility], ) TSTG ANS FUNCJ CARDIOVAGAL INNERVAJ PARASYMP 0 12:00:00 AM EDT [facility] ([facility], ) TESTING AUTONOMIC NERVOUS SYSTEM FUNCTION 11/29/2019 1 2:00:00 AM EDT [facility] ([facility], ) TESTING AUTONOMIC NERVOUS SYSTEM FUNCTION 11/29/2019 1 2:00:00 AM EDT [facility] ([facility], ) Results ID Date Data Source [id number] 11/17/2019 12:39:00 [place] [address] PHONE: [phone] FAX: [phone] Name .................. : FRANCIS Frias Acct Number.................. : [id number] ROOM. ................. : Number ................... : [id number] Stay type ............. : O/P Discharge Date......... ... : 11/17/19 Admit Date .... ..... : 11/17/19 Admit Phys .................... : SHAGUFTA BACA Date of ....... : 1985 Family Phys ................... : UNKNOWN CO Phone .................. : [phone] Age ................................ : 33 Film# .................. .:[id number] Sex ................................. : F Unsigned transcriptions are preliminary reports and do not represent a medical or legal document MRI BRAIN W/O CONTRAST [id number] COMPLETE:11/17/19 08:01 74043 (REASON FOR PROCEDURE HEADACHES MRI OF THE [...] Copy for: SHAGUFTA WILDE Copy for: Lorrie [facility] Page 1 of 1 Name Value Range Interpretation Code Description Data Sindi rce(s) Supporting Document(s) ID Date Data Source [id number] 05/05/2019 05:44:00 PM EDT [facility] ([facility]) Name Value Range Interpretation Code Description Data Sindi rce(s) Supporting Document(s) Glucose, Fasting 97 mg/dL 70-100 Normal (applies to non-numeric results) [facility] ([facility]) Glomerular Filtration Rate Laboratory test result Normal (applies to non- numeric results) [facility]) <content>Units are mL/min/1.73 m2</content>
<content></content>
<content>Chronic Kidney Disease Staging per NKF:</content>
<content></content>
<content>Stage I & II GFR >=60 Normal to Mildly Decreased</content>
<content>Stage III GFR 30-59 Moderately Decreased</content>
<content>Stage IV GFR 15-29 Severely Decreased</content>
<content>Stage V GFR <15 Very Little GFR Left</content>
<content>ESRD GFR <15 on NUCLEAR MEDICAL TECH</content>
<content></content> Blood Urea Nitrogen 10 mg/dL 7-18 Normal (applies to non-nume karly results) [facility] ([facility]) Creatinine For GFR 0.82 mg/dL 0.55-1.30 Normal (applies to non -numeric results) [facility] ([facility]) Chloride Level 108 meq/L 98-107 Above high normal [facility] ([facility]) Sodium Level 139 meq/L 136-145 Normal (applies to non-numeric res ults) [facility]) Potassium Serum 3.7 meq/L 3.5-5.1 Normal (applies to non-numeric results) [facility]) Carbon Dioxide Level 28 meq/L 21-32 Normal (applies to non-num yared results) [facility] ([facility]) Anion Gap 3 meq/L 8-16 Below low normal [facility] ( [facility]) Calcium Level 8.8 mg/dL 8.5-10.1 Normal (applies to non-numeric re sults) [facility] ([facility]) ID Date Data Source [id number] 05/05/2019 05:44:00 PM EDT [facility] ([facility]) Name Value Range Interpretation Code Description Data Sindi rce(s) Supporting Document(s) White Blood Count 14.1 10 4.0-10.0 Above high normal [facility] ([facility]) Red Blood Count 4.14 10 4.00-5.40 Normal (applies to non-numeric results) [facility] ([facility]) Hemoglobin 10.0 g/dL 12.0-15.5 Below low normal [facility] ( [facility]) Hematocrit 32.9 % 36.0-47.0 Below low normal [facility] ( [facility]) Mean Corpuscular Volume 79.5 fl 80.0-96.0 Below low normal [facility] ([facility]) Mean Corpuscular Hemoglobin 24.2 pg 27.0-33.0 Below low normal [facility] ([facility]) Mean Corpuscular HGB Conc 30.4 g/dL 32.0-36.5 Below low normal [facility] Platelet Count, Automated 221 10 150-450 Normal (applies to non-numeric results) [facility] ([facility]) Red Cell Distribution Width 16.5 % 11.5-14.5 Above high normal [facility] ([facility]) Nucleated Red Blood Cell % 0.0 % 0-0 Normal (applies to n on-numeric results) [facility] ([facility]) ID Date Data Source [id number] 04/17/2019 09:09:00 [place] [address] PHONE: [phone] FAX: [phone] Name .................. : FRANCIS Frias Acct Number.................. : [id number] ROOM. ................. : TR-04 Number ................... : [id number] Stay type ............. : E/R Discharge Date......... ... : 04/15/19 Admit Date ... ...... : 04/15/19 Admit Phys .................... : LEE SOARES Date of ....... : 1985 Family Phys ................... : UNKNOWN CO Phone .................. : [phone] Age ................................ : 33 Film# .................. .:[id number] Sex ................................. : F Unsigned transcriptions are preliminary reports and do not represent a medical or legal document FOOT COMPLETE-3 OR MORE [facility] 16491 COMPLETE:04/15/19 17:37 [facility] [address] Reason(s): Pain LEFT FOOT SERIES: FINDINGS: Some [...] rce(s) Supporting Document(s) ID Date Data Source [id number] 04/15/2019 03:39:00 PM EST [facility] 1 OrderSheet [facility] Emergency Department [address] [place] [address] Phone #: [phone]- [phone] 04/15/2019 15:29 Patient: LORRAINE BLANCO Sex: F : 1985 Age: 33yWEIGHT:81.6 kg (S) HEIGHT:66 inches (S) BMI:29.0ALLERGIE S: No Known Drug AllergyCHIEF COMPLAINT: pain, swelling, pain, swelling, altered sensation, Lt, feet, in:LAB ORDERSOrder Description Priority Entered Acknowledged InitialedDIAGNOSTIC STUDY ORDERSOrder Description Priority Entered Acknowledged InitialedFoot Complete Left STAT 15:49 04/15/2019 Ack'd: 15:52 15:55 [place](Oxygen?(No)) Gini Daly ED, Jesse ER PA; R.N. [...] rce(s) Supporting Document(s) ID Date Data Source [id number] 04/15/2019 03:39:00 PM [facility] 1 Medication Reconciliation Report [facility] Emergency Department [address] [place] [address] Phone #: ext- [phone] 04/15/2019 15:29 Patient: [...] rce(s) Supporting Document(s) ID Date Data Source [id number] 04/15/2019 03:39:00 PM [facility] 1 Medication Administration Record [facility] Emergency Department [address] [place] [address] Phone #: ext- [phone] 04/15/2019 15:29 Patient: LORRAINE BLANCO Sex: F : 1985 Age: 33yWeight: 81.6 kgHeight/Length: 66 inBMI: 29ALLERGIES: No Known Drug Allergy Date/Time Medication Administered Medication OrderedGiven TYLENOL [PO] (APAP) Tylenol PO 1000 mg15:52 04/15/2019 Dose: 1000 mg Tablets Gini Henderson R.N. Name Value Range Interpretation Code Description Data Sindi rce(s) Supporting Document(s) ID Date Data Source [id number] 04/15/2019 03:39:00 PM [facility] 1 General Instructions [facility] Emergency Department [address] [place] [address] Phone #: ext- [phone] 04/15/2019 15:29 Patient: [...] rce(s) Supporting Document(s) ID Date Data Source [id number] 04/15/2019 03:39:00 PM [facility] 1 Clinical Report - Nurses [facility] Emergency Department [address] [place] [address] Phone #: [phone]- [phone] 04/15/2019 15:29 Patient: LORRAINE BLANCO Sex: F [...] her boot she wears or a bunion).Treatment TRAFFIC SIGNAL REPAIRER:None.SEPSIS SCREEN: NEGATIVE heart rate greater than 90.JOSE [...] tubal ligation. 2 Clinical Report - Nurses [facility] Emergency Department [address] [place] [address] Phone #: ext- [phone] 04/15/2019 15:29 Patient: [...] Duque R.N. 3 Clinical Report - Nurses [facility] Emergency Department [address] [place] [address] Phone #: ext- [phone] 04/15/2019 15:29 Patient: LORRAINE BLANCO Sex: F [...] Patient verbalized understanding. Written instructions provided in Trinidadian. The patient was discharged by the physician registered dental assistant. She was discharged home and unaccompanied [...] rce(s) Supporting Document(s) ID Date Data Source [id number] 04/15/2019 03:39:00 PM EST [facility] 1 Clinical Report - Physicians/Mid Levels [facility] Emergency Department [address] [place] [address] Phone #: ext- [phone] 04/15/2019 15:29 Patient: [...] consumes wine occasionally. 2 Clinical Report - Physicians/[facility] Emergency Department [address] [place] [address] Phone #: ext- [phone] 04/15/2019 15:29 Patient: LORRAINE BLANCO Sex: F [...] pads). 3 Clinical Report - Physicians/Mid Levels [facility] Emergency Department [address] [place] [address] Phone #: ext- [phone] 04/15/2019 15:29 Patient: LORRAINE BLANCO Sex: F : 1985 Age: 33y Follow-up: Follow up with your doctor Wednesday. Reason for referral: evaluation, treatment and refer to Podiatry. Summary of care provided to patient. Understanding of the discharge instructions verbalized by patient.(Electronically signed by DEIRDRE Monge 04/15/2019 19:48) Name Value Range Interpretation Code Description Data Sindi rce(s) Supporting Document(s) ID Date Data Source [id number] 03/06/2019 09:48:00 AM EST [facility] [address] [place] [address] PHONE: [phone] FAX: [phone] Name .................. : FRANCIS Frias Acct Number.................. : [id number] ROOM. ................. : MR Number ................... : [id number] Stay type ............. : O/P Discharge Date......... ... : 03/03/19 Admit Date ......... : 03/03/19 Admit Phys .................... : OSCAR TRAN Date of ....... : 1985 Family Phys ................... : UNKNOWN CO Phone .................. : [phone] Age ................................ : 33 Film# .................. .:[id number] Sex ................................. : F Unsigned transcriptions are preliminary reports and do not represent a medical or legal document MRI LOWER EXT ANY JT W CONT [id number] COMPLETE:03/03/19 10:42 [facility] 69058 (REASON FOR PROCESS: PAIN MRI OF THE [...] Date: Copy for: OSCAR OG Copy for: [address] [place] [address] REC Page 1 of 1 Name Value Range Interpretation Code Description Data Sindi rce(s) Supporting Document(s) ID Date Data Source [id number] 03/03/2019 01:29:00 PM [facility] [address] [place] [address] PHONE: [phone] FAX: [phone] Name .................. : FRANCIS LORRAINE Altagracia Acct Number.................. : [id number] ROOM. ................. : MR Number ................... : [id number] Stay type ............. : O/P Discharge Date......... ... : 03/03/19 Admit Date ......... : 03/03/19 Admit Phys .................... : OSCAR TRAN Date of ....... : 1985 Family Phys ................... : UNKNOWN CO Phone .................. : [phone] Age ................................ : 33 Film# .................. .:[id number] Sex ................................. : F Unsigned transcriptions are preliminary reports and do not represent a medical or legal document INJECTION FOR HIP ARTHROGRAM [id number] COMPLETE:03/03/19 09:20 66847 REASON FOR EXAM: PAIN FLUOROSCOPIC EXAMINATION OF [...] 03/03/19 13:29, MRA Page 1 of 2 [place] [address] PHONE: [phone] FAX: [phone] Name .................. : FRANCIS Frias Acct Number.................. : [id number] ROOM. ................. : MR Number ................... : [id number] Stay type ............. : O/P Discharge Date......... ... : 03/03/19 Admit Date ......... : 03/03/19 Admit Phys .................... : OSCAR TRAN Date of ....... : 1985 Family Phys ................... : UNKNOWN CO Phone .................. : [phone] Age ................................ : 33 Film# .................. .:[id number] Sex ................................. : F Unsigned transcriptions are preliminary reports and do not represent a medical or legal document INJECTION FOR HIP ARTHROGRAM [id number] COMPLETE:03/03/19 09:20 [id number] REASON FOR EXAM: PAIN Transcribe Initials: RANDY , Transcribe Date: 03/03/19 10:03, Dictation Date: Copy for: OSCAR OG Copy for: 710 MED REC Page 2 of 2 Name Value Range Interpretation Code Description Data Snidi rce(s) Supporting Document(s) Procedure Vital Signs ID Date Data Source UNK Name Value Range Interpretation Code Description Data Source(s) Body weight 84.937 kg 84.[address] [facility] ([facility]) Body mass index (BMI) [Ratio] 30.2 kg/m2 30.2 k g/m2 [facility] ([facility]) Body weight 187.25 [lb_av] 187.25 [lb_av] [facility] ([facility]) Body height 66 [in_i] 66 [in_i] [facility] ([facility]) 5'6" Diastolic blood pressure 76 mm[Hg] 76 mm[Hg] [facility] ([facility]) Systolic blood pressure 116 mm[Hg] 116 mm[Hg] [facility] Body weight 87.998 kg 87.[address] [facility] ([facility]) Body mass index (BMI) [Ratio] 31.3 kg/m2 31.3 k g/m2 [facility] ([facility]) Body weight 194.00 [lb_av] 194.00 [lb_av] [facility] ([facility], ) Body height 66 [in_i] 66 [in_i] [facility] ([facility], ) 5'6" Body temperature 98.4 [degF] 98.4 [degF] [facility] ([facility]) Respiratory rate 16 /min 16 /min [facility] ( [facility]) Heart rate 76 /min 76 /min [facility] ([facility], ) Diastolic blood pressure 82 mm[Hg] 82 mm[Hg] [facility] ([facility]) Systolic blood pressure 118 mm[Hg] 118 mm[Hg] [facility] ([facility], )
[2020-04-04] MEDS ORDERED: NS 1,000 ML IV ONE (13:45)
--- NOTE | 2020-04-04 14:33 | REP ---
INDICATION: pelvic pain, vag bleeding, h/o endometriosis/ovarian cyst. COMPARISON: Comparison pelvic sonography April 01, 2020. TECHNIQUE: Transabdominal and transvaginal scanning were performed. FINDINGS: Uterine dimensions are normal at 10.5 x 4.9 x 6.0 cm. Endometrial echo is 1.6 cm thick and centrally placed. No free fluid is seen in the cul-de-sac. Visualized bladder chirinos are smooth. Endometrium is somewhat heterogeneous and thickened. The hypoechoic cystic lesion previously identified in the lower uterine segment has resolved. Visualized urinary bladder chirinos are smooth. The right ovary has dimensions of 5.0 x 4.2 x 5.0 cm. It's Doppler flow is normal with a resistive index of 0.74. There is a complex cystic area in the right ovary measuring 4.3 x 3.6 x 3.9 cm. The left ovary dimensions are normal as well at 3.4 x 2.7 x 2.1 cm. Cm. It's Doppler flow was normal with resistive index of 0.60. IMPRESSION: Complex 4.3 cm cystic area right ovary. Previously noted lower uterine segment lesion has resolved. Mild heterogeneous thickening of the endometrium.. <Electronically signed by Manuel Sweeney > 04/04/20 5231
[2020-04-04 14:42] LABS: BASO % 0.2 % (0.0-1.0); EOS # 0.1 10^3/uL (0.0-0.5); EOS % 1.2 % (0.0-3.0); HEMATOCRIT 41.4 % (36.0-47.0); HEMOGLOBIN 12.8 g/dl (12.0-15.5); LYMPH # 1.6 10^3/uL (1.5-5.0); LYMPH % 27.3 % (24.0-44.0); MEAN CORPUSCULAR HEMOGLOBIN 26.1 pg (27.0-33.0); MEAN CORPUSCULAR HGB CONC 30.9 g/dl (32.0-36.5); MEAN CORPUSCULAR VOLUME 84.3 fl (80.0-96.0); MONO # 0.3 10^3/uL (0.0-0.8); MONO % 4.7 % (2.0-8.0); NEUTROPHILS % 66.4 % (36.0-66.0); PLATELET COUNT, AUTOMATED 150 10^3/uL (150-450); RED BLOOD COUNT 4.91 10^6/uL (4.00-5.40)
[2020-04-04] MEDS ORDERED: MORPHINE 4 MG/ML 1ML VIAL/SYRINGE (J2270) IV ONE (14:45)
[2020-04-04] MEDS ORDERED: ONDANSETRON 4MG/2ML VIAL IV ONE (14:45)
[2020-04-04 15:02] LABS: ALT/SGPT 25 U/L (12-78); BILIRUBIN,DIRECT 0.1 MG/DL (0.0-0.2); BILIRUBIN,TOTAL 0.4 MG/DL (0.2-1.0); BLOOD UREA NITROGEN 9 MG/DL (7-18); CALCIUM LEVEL 9.4 MG/DL (8.5-10.1); CARBON DIOXIDE LEVEL 25 MEQ/L (21-32); CHLORIDE LEVEL 111 MEQ/L (98-107); CREATININE FOR GFR 0.81 MG/DL (0.55-1.30); GLOMERULAR FILTRATION RATE > 60.0 (>60); GLUCOSE, FASTING 84 MG/DL (70-100); LIPASE 86 U/L (73-393); POTASSIUM SERUM 4.1 MEQ/L (3.5-5.1); SODIUM LEVEL 142 MEQ/L (136-145); TOTAL PROTEIN 7.4 GM/DL (6.4-8.2)
[2020-04-04] MEDS ORDERED: HYDR-3713 PO (16:45)
[2020-04-04 16:46] VITALS: BP 129/88
--- NOTE | 2020-04-05 07:55 | ED PDOC ---
Post-Departure Follow-Up radiology repo rt faxed to [facility] Samantha Tubbs MD Apr 05, 2020 07:55
== END 2020-04-04 17:38 | disposition home or self-care (01) ==
LOC: M ED 12:47
DX: N93.9 Abnormal uterine and vaginal bleeding, unspecified (principal); N94.6 Dysmenorrhea, unspecified; N83.201 Unspecified ovarian cyst, right side; R93.89 Abnormal findings on diagnostic imaging of other specified body structures; R31.9 Hematuria, unspecified; Z87.42 Personal history of other diseases of the female genital tract; M16.12 Unilateral primary osteoarthritis, left hip; F17.200 Nicotine dependence, unspecified, uncomplicated
CPT/HCPCS: 76830; 76856; 80048; 80076; 81001; 83690; 84702; 85025; 87086; 93976; 96361; 96374; 96375; 99284; J2270; J2405

== ENCOUNTER 2020-05-08 06:19 | Inpatient (IN) | payer OTHER ==
[~2020-05-08] VITALS: Ht 167.6 cm; Wt 84.0 kg
[~2020-05-08 06:19] MED LIST changes: +ACETAMINOPHEN 500 MG TAB PO ONE; +GABAPENTIN 300 MG CAP PO ONE; +HYDR-3713 PO; +LIDOCAINE 1% MDV 20ML VIAL SQ PRN; +LR 1,000 ML IV ONE; +SCOPOLAMINE 1MG TRANSDERMAL PATCH TOP ONE; +ceFAZolin SOD 2 GM in IV 1 EA IV ONE
[2020-05-08 07:04] LABS: HEMATOCRIT 39.5 % (36.0-47.0); HEMOGLOBIN 12.3 g/dl (12.0-15.5); MEAN CORPUSCULAR HEMOGLOBIN 26.5 pg (27.0-33.0); MEAN CORPUSCULAR HGB CONC 31.1 g/dl (32.0-36.5); MEAN CORPUSCULAR VOLUME 85.1 fl (80.0-96.0); PLATELET COUNT, AUTOMATED 145 10^3/uL (150-450); RED BLOOD COUNT 4.64 10^6/uL (4.00-5.40); WHITE BLOOD COUNT 4.5 10^3/uL (4.0-10.0)
[2020-05-08] MEDS ORDERED: SUGAMMADEX SODIUM 500 MG/5 ML VIAL (BRIDION) As Ordered ONE (07:14)
[2020-05-08] MEDS ORDERED: KETOROLAC 60MG 2ML VIAL As Ordered ONE (07:14)
[2020-05-08] MEDS ORDERED: LIDOCAINE 2% 100MG/5ML SDV (FOR ANES.) As Ordered ONE (07:14)
[2020-05-08] MEDS ORDERED: propofoL 200 MG/20 ML VIAL As Ordered ONE (07:14)
[2020-05-08] MEDS ORDERED: ONDANSETRON 4MG/2ML VIAL As Ordered ONE (07:14)
[2020-05-08] MEDS ORDERED: dexameTHASONE 4 MG/ML 1ML VIAL (J1100 PER 1MG) As Ordered ONE (07:14)
[2020-05-08] MEDS ORDERED: ROCURONIUM BROMIDE 50 MG/5 ML VIAL As Ordered ONE ×2 (07:14→08:30)
[2020-05-08] MEDS ORDERED: MIDAZOLAM INJ 2MG/2ML VIAL (J2250 PER 1MG) As Ordered ONE (07:15)
[2020-05-08] MEDS ORDERED: BUPIVACAINE HCL 0.5% 30 ML VIAL As Ordered ONE (07:15)
[2020-05-08] MEDS ORDERED: fentaNYL 100 MCG/2 ML INJECTION (J3010) As Ordered ONE (07:15)
[2020-05-08 07:22] LABS: APPEARANCE, URINE CLEAR (CLEAR); BACTERIA, URINE AUTO NEGATIVE (NEGATIVE); BILIRUBIN, URINE AUTO NEGATIVE (NEGATIVE); BLOOD, URINE BLOOD NEGATIVE (NEGATIVE); COLOR, URINE YELLOW (YELLOW); GLUCOSE, URINE (UA) AUTO NEGATIVE (NEGATIVE); KETONE, URINE AUTO NEGATIVE (NEGATIVE); LEUKOCYTE ESTERASE, URINE AUTO NEGATIVE (NEGATIVE); NITRITE, URINE AUTO NEGATIVE (NEGATIVE); PROTEIN, URINE AUTO NEGATIVE (NEGATIVE); RBC, URINE AUTO 2 /HPF (0-3); SQUAMOUS EPITHELIAL CELL UR AU 1 /HPF (0-6); UROBILINOGEN, URINE AUTO 0.2 mg/dL (0.0-2.0); WBC, URINE AUTO 1 /HPF (0-3)
[2020-05-08 07:37] LABS: HCG, SERUM QUALITATIVE NEGATIVE (NEGATIVE)
[2020-05-08 07:38] LABS: ALBUMIN 3.8 GM/DL (3.2-5.2); ALT/SGPT 27 U/L (12-78); BILIRUBIN,TOTAL 0.4 MG/DL (0.2-1.0); BLOOD UREA NITROGEN 15 MG/DL (7-18); CALCIUM LEVEL 9.3 MG/DL (8.5-10.1); CARBON DIOXIDE LEVEL 25 MEQ/L (21-32); CHLORIDE LEVEL 107 MEQ/L (98-107); CREATININE FOR GFR 0.81 MG/DL (0.55-1.30); GLOMERULAR FILTRATION RATE > 60.0 (>60); GLUCOSE, FASTING 84 MG/DL (70-100); POTASSIUM SERUM 4.2 MEQ/L (3.5-5.1); SODIUM LEVEL 141 MEQ/L (136-145); TOTAL PROTEIN 7.1 GM/DL (6.4-8.2)
[2020-05-08] MEDS ORDERED: ePHEDrine SULFATE 25 MG/5 ML(5MG/ML) SYRINGE As Ordered ONE (08:19)
[2020-05-08] MEDS: SENNA 8.6 MG TAB (SENOKOT) PO SCH (09:00)
[2020-05-08] MEDS ORDERED: HYDROmorphone HCL 2 MG/ML 1ML VIAL (J1170) As Ordered ONE (09:51)
[2020-05-08] MEDS ORDERED: ACETAMINOPHEN 500 MG TAB PO PRN (10:15)
[2020-05-08] MEDS ORDERED: ONDANSETRON 4 MG TAB PO PRN (10:15)
[2020-05-08] MEDS ORDERED: PROMETHAZINE 25 MG TAB PO PRN (10:15)
[2020-05-08] MEDS ORDERED: oxyCODONE 5MG TAB PO PRN ×4 (10:30→12:00)
[2020-05-08] MEDS ORDERED: ONDANSETRON 4MG/2ML VIAL IV PRN (10:30)
[2020-05-08] MEDS ORDERED: fentaNYL 100 MCG/2 ML INJECTION (J3010) IV PRN (10:30)
[2020-05-08] MEDS ORDERED: LR 1,000 ML IV SCH (10:30)
--- NOTE | 2020-05-08 10:37 | ROOPDOC ---
[facility] Report Of Operation Report of Operation DATE OF PROCEDURE: 05/08/20 PREPROCEDURE DIAGNOSES: Post Ablation syndrome POSTPROCEDURE DIAGNOSES: Post Ablation Syndrome. PROCEDURE: Total Laparoscopic hysterectomy and cystoscopy SURGEON: Nathan San MD RACING MANAGER: Lewis Cash MD ANESTHESIA: Genera;. ESTIMATED BLOOD LOSS: Approximately 700 mL. , UOP 200G, ANTIBIOTIC: 2G ANCEF, SCDS on used for DVT prophylaxis COMPLICATIONS: None. REMARKS: . PROCEDURE NOTE: Normal anatomy of external female genitalia. 8wk anteverted uterus. normal uterus with the bilateral tubes surgically absent. normal bilateral ovaries. total laparoscopic hysterectomy performed in the usual fashion with LigaSure devise without issues. vag cuff closed from below with 0- vicryl running lock from right to left apex. excellent hemostasis. Cystoscopy performed with normal urothelium noted and strong urinary jets noted bilaterally. no s of trauma to the bladder. DESCRIPTION OF PROCEDURE: OPERATIVE PROCEDURE: The patient was taken to the operating room, where she was placed supine in low lithotomy position. General anesthesia was found to be adequate. An exam under anesthesia was performed with findings noted above. She was then prepped and draped in normal sterile fashion. An operative speculum was placed in the vagina. A single tooth tenaculum grasped the anterior lip of the cervix and the V-care uterine manipulator was placed followed by a jacobo catheter. Attention was turned to the abdomen, where a small stab incision was made at the base of the umbilicus. Using a direct entry technique, a 5mm Trocar and port were inserted under direct visualization with the laparoscope. A primary survey of the abdomen was performed with findings as above. 5mm right and left lower quadrant trocars were then placed sequentially under direct visualization. Dissection was first carried on the patient's left side where the round ligament was cauterized and transected. The posterior leaf of the broad ligament was dissected and the anterior leaf of the broad ligament was taken down with the LigaSure. Attention was then turned to the right side where the round ligament and separation of the broad ligament were performed in a similar fashion. The bladder flap was further delineated with the LigaSure device. Once the right plane was identified, the bladder was safely dissected away. The bilateral uterine arteries were cauterized and transected with good hemostasis achieved. The uterus was amputated at the cervicovaginal junction with the L-hook and delivered through the vagina. the right uterine vessel was noted to be bleeding, after suction and irrigation, this vessel was cauterized under and excellent hemostasis achieved. Attention was turned down below where the vaginal cuff was closed with 0 Vicryl with a running locking stitch. Cystoscopy was then performed with the normal findings as above. Attention was turned to the abdomen one last time and after copious irrigation and suction, the cuff was noted to have continued hemostasis. All abdominal instruments were removed. The incisions were closed with 4-0 Monocryl on and Dermabond. Speculum and bimanual exam at the end of the case revealed intact vaginal cuff with no retained objects in the vagina. The patient tolerated the procedure well. She was taken to the PACU where she recovered in stable condition. Sponge, lap, needle, and instrument counts were correct throughout the procedure. . MERYL GARSIA MD May 08, 2020 10:37
[2020-05-08 11:54] LABS: HEMATOCRIT 33.2 % (36.0-47.0); HEMOGLOBIN 10.5 g/dl (12.0-15.5); MEAN CORPUSCULAR HEMOGLOBIN 27.4 pg (27.0-33.0); MEAN CORPUSCULAR HGB CONC 31.6 g/dl (32.0-36.5); MEAN CORPUSCULAR VOLUME 86.7 fl (80.0-96.0); PLATELET COUNT, AUTOMATED 115 10^3/uL (150-450); RED BLOOD COUNT 3.83 10^6/uL (4.00-5.40); WHITE BLOOD COUNT 12.2 10^3/uL (4.0-10.0)
[2020-05-08] MEDS ORDERED: oxyCODONE 5MG TAB PO SCH (12:00)
[2020-05-08] MEDS: oxyCODONE 5MG TAB PO SCH ×2 (12:00→18:00)
[2020-05-08 12:40] VITALS: BP 95/58
[2020-05-08 13:14] VITALS: BP 115/62
[2020-05-08 14:00] VITALS: BP 120/86
[2020-05-08] MEDS: KETOROLAC 30 MG/ML 1ML VIAL IV SCH ×3 (14:00→20:27)
[2020-05-08 15:00] VITALS: BP 97/59
[2020-05-08] MEDS: LR 1,000 ML IV SCH ×2 (15:02→22:39)
[2020-05-08 16:56] VITALS: BP 103/61
[2020-05-08] MEDS: DOCUSATE SODIUM 100MG CAPSULE PO SCH (20:26)
[2020-05-08] MEDS ORDERED: GABAPENTIN 300 MG CAP PO SCH (21:00)
[2020-05-08 21:17] LABS: HEMATOCRIT 28.6 % (36.0-47.0); HEMOGLOBIN 9.1 g/dl (12.0-15.5); MEAN CORPUSCULAR HEMOGLOBIN 27.2 pg (27.0-33.0); MEAN CORPUSCULAR HGB CONC 31.8 g/dl (32.0-36.5); MEAN CORPUSCULAR VOLUME 85.6 fl (80.0-96.0); PLATELET COUNT, AUTOMATED 119 10^3/uL (150-450); RED BLOOD COUNT 3.34 10^6/uL (4.00-5.40); WHITE BLOOD COUNT 8.7 10^3/uL (4.0-10.0)
[2020-05-08 22:00] VITALS: BP 103/59
[2020-05-09 00:30] VITALS: BP 96/64
[2020-05-09] MEDS: oxyCODONE 5MG TAB PO SCH ×3 (01:01→11:10)
[2020-05-09] MEDS: KETOROLAC 30 MG/ML 1ML VIAL IV SCH ×2 (01:15→08:50)
[2020-05-09 01:34] LABS: HEMATOCRIT 27.7 % (36.0-47.0); HEMOGLOBIN 8.6 g/dl (12.0-15.5); MEAN CORPUSCULAR HEMOGLOBIN 26.5 pg (27.0-33.0); MEAN CORPUSCULAR VOLUME 85.2 fl (80.0-96.0); PLATELET COUNT, AUTOMATED 116 10^3/uL (150-450); RED BLOOD COUNT 3.25 10^6/uL (4.00-5.40); WHITE BLOOD COUNT 11.1 10^3/uL (4.0-10.0)
[2020-05-09 01:50] VITALS: BP 102/78
[2020-05-09] MEDS: LR 1,000 ML IV SCH (05:46)
[2020-05-09 06:00] VITALS: BP 118/70
[2020-05-09 06:33] LABS: EOS % 0.1 % (0.0-3.0); HEMATOCRIT 26.8 % (36.0-47.0); HEMOGLOBIN 8.6 g/dl (12.0-15.5); LYMPH # 2.3 10^3/uL (1.5-5.0); LYMPH % 17.9 % (24.0-44.0); MEAN CORPUSCULAR HEMOGLOBIN 27.6 pg (27.0-33.0); MEAN CORPUSCULAR HGB CONC 32.1 g/dl (32.0-36.5); MEAN CORPUSCULAR VOLUME 85.9 fl (80.0-96.0); MONO # 0.7 10^3/uL (0.0-0.8); MONO % 5.7 % (2.0-8.0); NEUTROPHILS # 9.8 10^3/uL (1.5-8.5); NEUTROPHILS % 75.9 % (36.0-66.0); PLATELET COUNT, AUTOMATED 112 10^3/uL (150-450); RED BLOOD COUNT 3.12 10^6/uL (4.00-5.40); WHITE BLOOD COUNT 12.9 10^3/uL (4.0-10.0)
--- NOTE | 2020-05-09 07:22 | IPNPDOC ---
Text Note Date of Service The patient was seen on 05/09/20. NOTE 05/09/2020 1200 called re low bp post LAVH and request pain medication. Patient had low bp post op now consistent low bp concerned re medication with low bp. reviewed h/h low stable no pre op baseline . voiding no postural drop iv 125 cc per hour all vitals stable Plan give Toradol hold Percocet have patient void if > 200 ml scan bladder repeat stat CBC . Proceed from there VS,Sonny, I+O VS, Sonny, I+O Laboratory Tests 05/08/20 11:41 05/08/20 21:04 05/09/20 01:20 05/09/20 05:55 Vital Signs Date Time Temp Pulse Resp B/P (MAP) Pulse Ox O2 Delivery O2 Flow Rate FiO2 05/09/20 06:54 16 Room Air 05/09/20 06:00 97.4 94 118/70 (86) 99 05/08/20 10:22 10 I&O- Last 24 Hours up to 6 AM 05/09/20 06:00 Intake Total 3910 ml Output Total 2802 ml Balance 1108 ml Shailesh Saucedo MD May 09, 2020 07:21
--- NOTE | 2020-05-09 07:36 | IPNPDOC ---
Text Note Date of Service Vital Signs Label Value Date Time Respiratory Rate 16 bpm 05/09/20 0654 Bedside Pulse Oximetry 99 % 05/09/20 0600 Blood Pressure Assessment 118/70 (86) 05/09/20 0600 Respiratory Rate 20 bpm 05/09/20 0600 Pulse 94 05/09/20 0600 Patient Temperature 97.4 degrees F 05/09/20 0600 Temperature Source Temporal 05/09/20 0600 Respiratory Rate 18 bpm 05/09/20 0547 Blood Pressure Assessment 118/70 05/09/20 0547 Bedside Pulse Oximetry 100 % 05/09/20 0150 Blood Pressure Assessment 102/78 (86) 05/09/20 0150 Respiratory Rate 18 bpm 05/09/20 0150 Pulse 82 05/09/20 0150 Patient Temperature 98.0 degrees F 05/09/20 0150 Temperature Source Temporal 05/09/20 0150 Pulse 77 05/09/20 0030 Blood Pressure Assessment 96/64 (75) 05/09/20 0030 Bedside Pulse Oximetry 99 % 05/08/20 2200 Blood Pressure Assessment 103/59 (74) 05/08/20 2200 Respiratory Rate 18 bpm 05/08/20 2200 Pulse 86 05/08/20 2200 Patient Temperature 97.1 degrees F 05/08/20 2200 Temperature Source Temporal 05/08/20 2200 The patient was seen on 05/09/20. NOTE Item Value Date Time White Blood Count 12.9 10^3/uL H 05/09/20 0555 Red Blood Count 3.12 10^6/uL L 05/09/20 0555 Hemoglobin 8.6 g/dl L 05/09/20 0555 Hematocrit 26.8 % L 05/09/20 0555 Mean Corpuscular Volume 85.9 fl 05/09/20 0555 Mean Corpuscular Hemoglobin 27.6 pg 05/09/20 0555 Mean Corpuscular Hemoglobin Concent 32.1 g/dl 05/09/20 0555 Red Cell Distribution Width 13.5 % 05/09/20 0555 Platelet Count 112 10^3/uL L 05/09/20 0555 Immature Granulocyte % (Auto) 0.4 % 05/09/20 0555 Neutrophils (%) (Auto) 75.9 % H 05/09/20 0555 Monocytes (%) (Auto) 5.7 % 05/09/20 0555 Eosinophils (%) (Auto) 0.1 % 05/09/20 0555 Basophils (%) (Auto) 0.0 % 05/09/20 0555 Neutrophils # (Auto) 9.8 10^3/uL H 05/09/20 0555 Lymphocytes # (Auto) 2.3 10^3/uL 05/09/20 0555 Monocytes # (Auto) 0.7 10^3/uL 05/09/20 0555 Eosinophils # (Auto) 0.0 10^3/uL 05/09/20 0555 Basophils # (Auto) 0.0 10^3/uL 05/09/20 0555 Nucleated Red Blood Cells % (auto) 0.0 % 05/09/20 0555 White Blood Count 11.1 10^3/uL H 05/09/20 0120 Red Blood Count 3.25 10^6/uL L 05/09/20 0120 Hemoglobin 8.6 g/dl L 05/09/20 0120 Mean Corpuscular Hemoglobin 26.5 pg L 05/09/20 0120 Hematocrit 27.7 % L 05/09/20 0120 Mean Corpuscular Volume 85.2 fl 05/09/20 0120 Mean Corpuscular Hemoglobin Concent 31.0 g/dl L 05/09/20 0120 Red Cell Distribution Width 13.5 % 05/09/20 0120 Platelet Count 116 10^3/uL L 05/09/20 0120 White Blood Count 8.7 10^3/uL 05/08/20 2104 Red Blood Count 3.34 10^6/uL L 05/08/204 Hemoglobin 9.1 g/dl L 05/08/204 Hematocrit 28.6 % L 05/08/202103 Mean Corpuscular Volume 85.6 fl 05/08/202103 Mean Corpuscular Hemoglobin 27.2 pg 05/08/202103 Mean Corpuscular Hemoglobin Concent 31.8 g/dl L 05/08/202103 Red Cell Distribution Width 13.5 % 05/08/202103 Platelet Count 119 10^3/uL L 05/08/20 210 White Blood Count 12.2 10^3/uL H 05/08/20 1141 Red Blood Count 3.83 10^6/uL L 05/08/20 1141 Hemoglobin 10.5 g/dl L 05/08/20 1141 Mean Corpuscular Volume 86.7 fl 05/08/20 1141 Hematocrit 33.2 % L 05/08/20 1141 Mean Corpuscular Hemoglobin 27.4 pg 05/08/20 1141 Mean Corpuscular Hemoglobin Concent 31.6 g/dl L 05/08/20 1141 Red Cell Distribution Width 13.4 % 05/08/20 1141 Platelet Count 115 10^3/uL L 05/08/20 1141 Platelet Count 145 10^3/uL L 05/08/20 0644 Red Cell Distribution Width 13.5 % 05/08/20 0644 Mean Corpuscular Hemoglobin Concent 31.1 g/dl L 05/08/20 0644 Mean Corpuscular Hemoglobin 26.5 pg L 05/08/20 0644 Mean Corpuscular Volume 85.1 fl 05/08/20 0644 Hematocrit 39.5 % 05/08/20 0644 Hemoglobin 12.3 g/dl 05/08/20 0644 Red Blood Count 4.64 10^6/uL 05/08/20 0644 White Blood Count 4.5 10^3/uL 05/08/20 0644 05/09/20 0400 Reviewed patient re low bp h/h stable blood pressure stable voiding well will for completeness repeat cbc in am stable safe to proceed. VS,Fishbone, I+O VS, Fishbone, I+O Laboratory Tests 05/08/20 11:41 05/08/20 21:04 05/09/20 01:20 05/09/20 05:55 Vital Signs Date Time Temp Pulse Resp B/P (MAP) Pulse Ox O2 Delivery O2 Flow Rate FiO2 05/09/20 06:54 16 Room Air 05/09/20 06:00 97.4 94 118/70 (86) 99 05/08/20 10:22 10 I&O- Last 24 Hours up to 6 AM 05/09/20 06:00 Intake Total 3910 ml Output Total 2802 ml Balance 1108 ml Shailesh Saucedo MD May 09, 2020 07:27
[2020-05-09] MEDS: DOCUSATE SODIUM 100MG CAPSULE PO SCH (08:50)
[2020-05-09] MEDS: SENNA 8.6 MG TAB (SENOKOT) PO SCH (08:50)
[2020-05-09 10:00] VITALS: BP 102/61
--- NOTE | 2020-05-09 12:55 | DS.PDOC ---
Discharge Summary General Date of Admission May 08, 2020 at 06:19 Date of Discharge 05/09/2020 Attending Physician: Marylou Discharge Summary PROCEDURES PERFORMED DURING STAY: TOTAL LAPAROSCOPIC HYSTERECTOMY AND CYSTOSCOPY . ADMITTING DIAGNOSES: 1. Post ablation syndrome 2. S/P TLH AND CYSTOSCOPY DISCHARGE DIAGNOSES: 1. Post ablation syndrome 2. S/P TLH AND CYSTOSCOPY COMPLICATIONS/CHIEF COMPLAINT: 34 YO FEMALE WHO HAD Post Ablation Syndrome NOW POD1 S/P TLH And Cystoscopy. HISTORY OF PRESENT ILLNESS: 34 YO FEMALE WHO HAD Post Ablation Syndrome NOW POD1 S/P TLH And Cystoscopy. HOSPITAL COURSE: 34 YO FEMALE WHO HAD Post Ablation Syndrome NOW POD1 S/P TLH And Cystoscopy. Preop OP H/H 12.3/39.5 EBL 700ml, post op H/H ;8.6/26.8. No s/s of anemia. The patient was admitted and consent, identity and procedure were verified. She was then taken to the operating room where the procedures as listed above were performed with findings as noted. Please see operative report for more details. She was taken to the PACU in stable condition and when meeting PACU criteria, she was transferred to the floor for further postoperative recovery. At the time of discharge, she was ambulating without assistance, tolerating a regular diet, voiding spontaneously and her pain was well controlled with oral medication. She was provided with post op meds, follow up appointment and instructions as outlined below. DISCHARGE MEDICATIONS: Patient has already at home ALLERGIES: Please see below. PHYSICAL EXAMINATION ON DISCHARGE: VITAL SIGNS: Please see below. GENERAL: well appearing female in no acute distress CARDIOVASCULAR EXAMINATION: RRR, no murmur RESPIRATORY EXAMINATION: CTAB ABDOMINAL EXAMINATION: Apropriate post surgical abdomen, SOFT, normal bowel s ounds EXTREMITIES: grossly normal, SCDs in place while in bed LABORATORY DATA: Please see below. PROGNOSIS: good ACTIVITY: You should plan to rest; however, you should not be on bed rest. Getting up and moving around is good for your recovery. When you feel up to it (usually shortly after going home) you can take short 10-15 minute walks inside or outside. You should not do any lifting of greater than 10-15 pounds for the first 6 weeks. Bathing: You can shower with your incisions. Allow the soapy water to run over your incisions. Do not scrub your incisions. Pat dry with a towel. You should not take tub baths or go swimming for the first 4 weeks post-operatively. Vaginal restrictions: There should be nothing in your vagina including douching, tampons, and intercourse for at least 8 weeks. Driving: No driving while taking narcotics. You need to be able to slam on the b rakes and turn the wheel sharply without hesitation. DIET: regular diet DISCHARGE PLAN: Discharge home DISPOSITION: discharge home DISCHARGE INSTRUCTIONS: Please contact the [facility] or the Emergency Room after hours for any of the following symptoms, * Fever (temperature > 100.4F) * Significant pain not controlled with oral pain medications * Significant nausea and vomiting with inability to tolerate any food or medication * Heavy vaginal bleeding soaking through more than one pad per hour for more than 3 hours ITEMS TO FOLLOWUP ON ON OUTPATIENT: 1. post op appointment schedule on 2020 @ 1025 DISCHARGE CONDITION: [Stable]. TIME SPENT ON DISCHARGE: Greater than 60 minutes. Vital Signs/I&Os Vital Signs Date Time Temp Pulse Resp B/P (MAP) Pulse Ox O2 Delivery O2 Flow Rate FiO2 05/09/20 11:10 16 05/09/20 10:00 98.2 85 102/61 (75) 99 05/09/20 06:54 Room Air 05/08/20 10:22 10 I&O- Last 24 Hours up to 6 AM 05/09/20 06:00 Intake Total 4660 ml Output Total 2802 ml Balance 1858 ml Laboratory Data Labs 24H Laboratory Tests 2 05/08/20 21:04: Nucleated Red Blood Cells % (auto) 0.0 05/09/20 01:20: Nucleated Red Blood Cells % (auto) 0.0 05/09/20 05:55: Nucleated Red Blood Cells % (auto) 0.0, Immature Granulocyte % (Auto) 0.4, Neutrophils (%) (Auto) 75.9H, Lymphocytes (%) (Auto) 17.9L, Monocytes (%) (Auto) 5.7, Eosinophils (%) (Auto) 0.1, Basophils (%) (Auto) 0.0, Neutrophils # (Auto) 9.8H, Lymphocytes # (Auto) 2.3, Monocytes # (Auto) 0.7, Eosinophils # (Auto) 0.0, Basophils # (Auto) 0.0 CBC/BMP Laboratory Tests 05/08/20 21:04 05/09/20 01:20 05/09/20 05:55 Discharge Medications Miscellaneous Medications Acetaminophen (Tylenol Extra Strength) 500 Mg Tablet, 1,000 MG PO, (Reported) Allergies Coded Allergies: No Known Allergies (Unverified , 05/03/20) MERYL GARSIA MD May 09, 2020 12:55
== END 2020-05-09 14:30 | disposition home or self-care (01) | DRG 747 ==
LOC: M OR 06:19 → M MSPAV 12:56
PROVIDERS: ADMIT Obstetrics & Gynecology; ATTEND Obstetrics & Gynecology
PROC: 0UT9FZZ Resection of Uterus, Via Natural or Artificial Opening With Percutaneous Endoscopic Assistance (ICD-10-PCS; principal; 2020-05-08 07:30)
PROC: 0UTC4ZZ Resection of Cervix, Percutaneous Endoscopic Approach (ICD-10-PCS; 2020-05-08 07:30)
DX: N99.85 Post endometrial ablation syndrome (principal); N88.8 Other specified noninflammatory disorders of cervix uteri

== ENCOUNTER 2020-05-14 18:15 | Emergency (ER) | payer OTHER ==
[~2020-05-14] VITALS: Ht 167.6 cm; Wt 83.2 kg
[~2020-05-14 18:15] MED LIST changes: -ACETAMINOPHEN 500 MG TAB PO ONE; -GABAPENTIN 300 MG CAP PO ONE; -LIDOCAINE 1% MDV 20ML VIAL SQ PRN; -LR 1,000 ML IV ONE; -SCOPOLAMINE 1MG TRANSDERMAL PATCH TOP ONE; -ceFAZolin SOD 2 GM in IV 1 EA IV ONE
[2020-05-14] MEDS ORDERED: ACET1TAB55 (18:29)
[2020-05-14] MEDS ORDERED: SENN-52 (18:29)
[2020-05-14] MEDS ORDERED: OXYC-517 (18:29)
[2020-05-14] MEDS ORDERED: IBUP80TA (18:29)
[2020-05-14] MEDS ORDERED: GABA-282 (18:29)
[2020-05-14] MEDS ORDERED: ISOVUE-370 76% 100ML VIAL As Ordered ONE (19:15)
--- NOTE | 2020-05-14 19:51 | REP ---
INDICATION: bilateral leg swelling/pain; r/o DVT. COMPARISON: None TECHNIQUE: Multiple ultrasonographic images of the deep venous structures of the bilateral thighs were obtained from the level of the common femoral vein to the popliteal vein in the longitudinal and transverse scan planes along with Doppler interrogation and color flow Doppler imaging. FINDINGS: There is no abnormal echogenic material seen within any of the visualized deep venous structures that would suggest acute thrombosis. Coaptation is unremarkable throughout. Doppler interrogation shows an expected response to respiratory variability and augmentation. The color flow Doppler images show what appears to be a normal vascular pattern throughout. IMPRESSION: There is no ultrasonographic evidence of deep venous thrombosis involving any of the visualized deep venous structures of the bilateral thighs as described above. Accredited by the [employer] in Vascular Peripheral Ultrasound. <Electronically signed by Kishan Dotson > 05/14/201947
[2020-05-14 19:54] LABS: BASO % 0.1 % (0.0-1.0); EOS # 0.1 10^3/uL (0.0-0.5); HEMATOCRIT 33.6 % (36.0-47.0); HEMOGLOBIN 10.7 g/dl (12.0-15.5); LYMPH # 2.6 10^3/uL (1.5-5.0); LYMPH % 32.8 % (24.0-44.0); MEAN CORPUSCULAR HEMOGLOBIN 27.4 pg (27.0-33.0); MEAN CORPUSCULAR HGB CONC 31.8 g/dl (32.0-36.5); MEAN CORPUSCULAR VOLUME 85.9 fl (80.0-96.0); MONO # 0.5 10^3/uL (0.0-0.8); MONO % 5.8 % (2.0-8.0); NEUTROPHILS # 4.8 10^3/uL (1.5-8.5); NEUTROPHILS % 59.9 % (36.0-66.0); PLATELET COUNT, AUTOMATED 223 10^3/uL (150-450); RED BLOOD COUNT 3.91 10^6/uL (4.00-5.40)
--- NOTE | 2020-05-14 20:02 | REPVR ---
PROCEDURE INFORMATION: Exam: CT Angiography Chest With Contrast Exam date and time: 05/14/2020 7:51 PM Age: 34 years old Clinical indication: Shortness of breath; Prior surgery; Surgery date: 3-7 days post-operative; Surgery type: Hysterectomy; Additional info: SOB; S/P surgery; R/O pe TECHNIQUE: Imaging protocol: Computed tomographic angiography of the chest with contrast. 3D rendering (Not supervised by radiologist): MIP and/or 3D reconstructed images were created by the technologist. Radiation optimization: All CT scans at this facility use at least one of these dose optimization techniques: automated exposure control; mA and/or kV adjustment per patient size (includes targeted exams where dose is matched to clinical indication); or iterative reconstruction. Contrast material: ISOVUE 370; Contrast volume: 75 ml; Contrast route: INTRAVENOUS (IV); COMPARISON: No relevant prior studies available. FINDINGS: Pulmonary arteries: There are no pulmonary emboli. Aorta: There is no aortic dissection or aneurysm. Lungs: Bibasilar atelectasis, left greater than right. Remaining lungs are clear. Pleural spaces: Unremarkable. No pneumothorax. No pleural effusion. Heart: Unremarkable. No cardiomegaly. No pericardial effusion. Lymph nodes: Unremarkable. No enlarged lymph nodes. Bones/joints: Unremarkable. No acute fracture. Soft tissues: Unremarkable. IMPRESSION: 1. There is no aortic dissection or aneurysm. 2. There are no pulmonary emboli. 3. No acute pulmonary parenchymal infiltrates. Electronically signed by: William Beaver On 05/14/2020 20:02:41 PM
[2020-05-14 20:23] LABS: ALBUMIN 3.6 GM/DL (3.2-5.2); ALT/SGPT 33 U/L (12-78); BILIRUBIN,DIRECT < 0.1 MG/DL (0.0-0.2); BILIRUBIN,TOTAL 0.2 MG/DL (0.2-1.0); CK-MB VALUE MASS < 1.0 NG/ML (<3.6); CPK CREATINE PHOSPHOKINASE 89 U/L (26-192); MB/CK RELATIVE INDEX 1.12 (< OR =4); TOTAL PROTEIN 6.9 GM/DL (6.4-8.2); TROPONIN I < 0.02 NG/ML (< 0.10)
[2020-05-14 20:30] VITALS: BP 111/69
--- NOTE | 2020-05-15 05:38 | ECGEPIP ---
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
== END 2020-05-14 20:49 | disposition home or self-care (01) ==
LOC: M ED 18:15
DX: R06.02 Shortness of breath (principal); R20.2 Paresthesia of skin; M79.669 Pain in unspecified lower leg; R07.9 Chest pain, unspecified; G47.30 Sleep apnea, unspecified; N80.9 Endometriosis, unspecified; F17.200 Nicotine dependence, unspecified, uncomplicated; Z79.899 Other long term (current) drug therapy
CPT/HCPCS: 36415; 71275; 80047; 80076; 82550; 82553; 84484; 85025; 93005; 93041; 93970; 94760; 99285; Q9967